=== PATIENT | female | born 1955 | race Caucasian/White ===

== ENCOUNTER → 2018-03-11 | Outpatient (CLI) | payer OTHER | LOC: FIMAGING 12:44 | DX: M47.897 Other spondylosis, lumbosacral region (principal); M51.37 Other intervertebral disc degeneration, lumbosacral region; M99.13 Subluxation complex (vertebral) of lumbar region ==

== ENCOUNTER 2018-07-02 18:38 | Inpatient (IN) | payer OTHER, MEDICAID ==
[2018-07-02] MEDS ORDERED: ALBUTEROL 3 ML DEYVIAL IH ONE (19:15)
[2018-07-02] MEDS ORDERED: methylPREDNISolone SOD SUCC 125 MG/2 ML VIAL IVP ONE ×2 (19:15→23:00)
[2018-07-02] MEDS ORDERED: IPRATROPIUM/ALBUTEROL 3 ML DEYVIAL IH ONE (19:15)
--- NOTE | 2018-07-02 19:19 | EDPHY ---
H & P Time Seen by Provider: 07/02/18 18:53 HPI/ROS: CHIEF COMPLAINT: "I stopped breathing twice" HISTORY OF PRESENT ILLNESS: Patient is at [facility] under the care of [facility] for stage IV emphysema. She is also getting scheduled narcotics 15 mg orally q4 hours of morphine per April from hospice, for chronic back pain. The patient tells me that she no longer wants to be on hospice because her 27- year-old daughter just got and now the patient tells me she is not ready to . The hospice person who I spoke to on the phone at 7:05 p.m., April, says that there are notes she reviewed that state that the patient had a disagreement with hospice providers over how much narcotics she was to get for her back pain. Patient tells me that twice, once last night and once the night before, she woke up unable to breathe. She says her breathing has been worsening over the past 2 days, and she feels more labored and more short of breath over the last 48 hr. She is still on her baseline 8 L nasal cannula of oxygen. She has a cough and thinks she might have a cold and some congestion. No hemoptysis or leg swelling and no chest pain. Symptoms severe. REVIEW OF SYSTEMS: Eye: no change in vision ENT: no sore throat Cardiac: no chest pain or syncope Pulmonary: HPI Abdomen: no vomiting, diarrhea, abdominal pain Musculoskeletal: HPI Skin: no rash Neuro: no headache Constitutional: no fever : no urinary symptoms or incontinence A comprehensive 10 point review of systems is otherwise negative aside from elements mentioned in the history of present illness. PAST MEDICAL HISTORY: Emphysema and chronic back pain Social history: [facility] resident until tonight General Appearance: Alert and conversant, cooperative. Eyes: No scleral icterus. ENT, Mouth: Normal mucous membranes. No angioedema. Respiratory: Bilateral expiratory wheezes, no focal lung sounds, tachypneic. On 8 liters NC. Cardiovascular: Regular rate and rhythm. Gastrointestinal: Abdomen is soft and non tender. Neurological: Alert, face symmetric, normal motor and sensory in extremities. Skin: Warm and dry, no rashes. Musculoskeletal: No calf tenderness. Psychiatric: Not agitated. Emergency Department course/MDM: Patient says she has withdrawn her relationship with hospice as of tonight. She says she does want full treatment for her COPD and is not ready to . Solu-Medrol 125, DuoNeb and albuterol neb, chest x-ray and EKG. 2019: Patient was started on oral 10 mg prednisone yesterday. She has markedly worsening symptomatic COPD with status recently changed from hospice to wanting full treatment. Planned admit for treatment of severe COPD. Likely she has viral URI or chest cold giving her worsening symptoms. I think it is not likely that she has pulmonary embolism or ACS or CHF or pneumonia. This is discussed with April from her hospice provider. Hospice recommended giving her 15 mg oral morphine every 4 hr, without any increase in dosing. Chest x-ray shows COPD and scarring, without pneumothorax or pneumonia. Smoking Status: Current every day smoker Constitutional: Initial Vital Signs Temperature (C) 36.6 C 07/02/18 18:41 Heart Rate 100 07/02/18 18:41 Respiratory Rate 18 07/02/18 18:41 Blood Pressure 148/73 H 07/02/18 18:41 O2 Sat (%) 96 07/02/18 18:41 O2 Delivery Mode Nasal Cannula O2 (L/minute) 8 Allergies/Adverse Reactions: Penicillins Allergy (Verified 07/02/18 18:41) Home Medications: Medication Instructions Recorded Unobtainable 07/02/18 Medical Decision Making - Diagnostics EKG Interpretation: 12-lead EKG interpreted by me; official reading is in computer system. My interpretation is sinus rhythm rate 96 no ischemic changes. Imaging Results: Imaging Impressions Chest X-Ray 07/02/18 19:15 Impression: 1. Bibasilar reticular opacities, worse on the left, likely representing scarring and atelectasis. Lungs are hyperinflated. 2. Irregularity of the posterolateral fourth rib on the right may represent an acute or subacute fracture. Recommend correlation with point tenderness. 3. Nodular density in the right lower lung favored to represent a nipple shadow. Imaging: I viewed and interpreted images myself Differential Diagnosis: Differential diagnosis considered for shortness of breath including but not limited to pulmonary infectious process, COPD, asthma, pulmonary embolus and congestive heart failure. Consult/Admit Bed Type: [facility] 2032 - Data Points Laboratory Results: Laboratory Results 07/02/18 19:22 07/02/18 19:22 07/02/18 07/02/18 19:22 19:22 WBC 10.19 10^3/uL H 10^3/uL (3.80-9.50) RBC 4.31 10^6/uL 10^6/uL (4.18-5.33) Hgb 13.0 g/dL g/dL (12.6-16.3) Hct 39.3 % % (38.0-47.0) MCV 91.2 fL fL (81.5-99.8) MCH 30.2 pg pg (27.9-34.1) MCHC 33.1 g/dL g/dL (32.4-36.7) RDW 13.0 % % (11.5-15.2) Plt Count 192 10^3/uL 10^3/uL (150-400) MPV 10.8 fL fL (8.7-11.7) Neut % (Auto) 76.0 % H % (39.3-74.2) Lymph % (Auto) 17.5 % % (15.0-45.0) [place] % (Auto) 5.5 % % (4.5-13.0) Eos % (Auto) 0.5 % L % (0.6-7.6) Baso % (Auto) 0.2 % L % (0.3-1.7) Nucleat RBC Rel Count 0.0 % % (0.0-0.2) Absolute Neuts (auto) 7.75 10^3/uL H 10^3/uL (1.70-6.50) Absolute Lymphs (auto) 1.78 10^3/uL 10^3/uL (1.00-3.00) Absolute Monos (auto) 0.56 10^3/uL 10^3/uL (0.30-0.80) Absolute Eos (auto) 0.05 10^3/uL 10^3/uL (0.03-0.40) Absolute Basos (auto) 0.02 10^3/uL 10^3/uL (0.02-0.10) Absolute Nucleated RBC 0.00 10^3/uL 10^3/uL (0-0.01) Immature Gran % 0.3 % % (0.0-1.1) Immature Gran # 0.03 10^3/uL 10^3/uL (0.00-0.10) Sodium 133 mEq/L L mEq/L (135-145) Potassium 3.9 mEq/L mEq/L (3.5-5.2) Chloride 91 mEq/L L mEq/L (97-110) Carbon Dioxide 33 mEq/l H mEq/l (22-31) Anion Gap 9 mEq/L mEq/L (6-14) BUN 7 mg/dL mg/dL (7-23) Creatinine 0.5 mg/dL L mg/dL (0.6-1.0) Estimated GFR > 60 Glucose 114 mg/dL H mg/dL (70-100) Calcium 9.7 mg/dL mg/dL (8.5-10.4) Medications Given: Discontinued Medications Albuterol (Proventil Neb) 3 ml IH EDNOW ONE Stop: 07/02/18 19:16 Last Admin: 07/02/18 19:24 Dose: 3 ml Albuterol/Ipratropium (Duoneb) 3 ml IH EDNOW ONE Stop: 07/02/18 19:16 Last Admin: 07/02/18 19:24 Dose: 3 ml Methylprednisolone Sodium Succinate (Solu-Medrol) 125 mg IVP EDNOW ONE Stop: 07/02/18 19:16 Last Admin: 07/02/18 19:24 Dose: 125 mg Morphine Sulfate (Morphine Ir) 15 mg PO EDNOW ONE Stop: 07/02/18 19:17 Last Admin: 07/02/18 19:44 Dose: 15 mg Departure - Departure Disposition: [place] Inpatient Acute Clinical Impression: Chronic obstructive pulmonary disease with acute exacerbation Condition: Fair Referrals: CRUZ KOHLER [Primary Care Provider] - As per Instructions
[2018-07-02 19:36] LABS: PLATELET COUNT 192 10^3/uL (150-400)
--- NOTE | 2018-07-02 20:16 | CPEKG ---
Test Reason : OPEN Blood Pressure : / mmHG Vent. Rate : 096 BPM Atrial Rate : 095 BPM P-R Int : 141 ms QRS Dur : 082 ms QT Int : 350 ms P-R-T Axes : 081 047 051 degrees QTc Int : 443 ms Sinus rhythm Confirmed by Miguel Angel Mcguire ([id number]) on 07/02/2018 8:15:48 PM Referred By: Confirmed By:Miguel Angel Mcguire
[2018-07-02] MEDS ORDERED: ONDANSETRON 4 MG/2 ML VIAL IVP PRN (21:09)
[2018-07-02] MEDS ORDERED: ONDANSETRON DISINTEGRATING 4 MG TAB PO PRN (21:09)
[2018-07-02] MEDS ORDERED: PROMETHAZINE HCL 25 MG/ML INJ IVP PRN (21:09)
--- NOTE | 2018-07-02 21:46 | PDGENHP ---
History and Physical - Chief Complaint shortness of breath - History of Present Illness 63 yo F with PMH that includes COPD with chronic hypoxic respiratory failure requiring 8L of oxygen at baseline as well as chronic back pain with continuous narcotic use and dependency presenting from [facility] with complaints of increased sob for the last few days. She notes that she had been on hospice at [facility] for the last several months for both her COPD and for 'pain control'. She recently found out that her daughter is however and that combined with how badly she felt made her decide to withdraw from hospice and come to the hospital. She states at this time she would also like to revoke her DNR and would be ok with being intubated if things progressed that way, her daughter is her MDPOA. She has not have any fevers or chills that she is aware of, she notes her back pain has been worse than usual and she does not feel it is being controlled adequately at [facility]. She has a cough that is non productive. She has not had any sick contacts that she is aware of. History Information - Allergies/Home Medication List Allergies/Adverse Reactions: Penicillins Allergy (Verified 07/02/18 18:41) Home Medications: Acetaminophen [Tylenol ES 500 mg (*)] 500 mg PO BID@,16 07/02/18 [Last Taken 07/02/18 16:00] Albuterol Sulfate [ALBUTEROL SULFATE 1.25 MG/3 ML] 1.25 mg IH BID@,18 [Last Taken 07/02/18 18:00] Benzonatate 100 mg PO TID 07/02/18 [Last Taken 07/02/18 20:00] Diazepam [Valium 5 MG (*)] 5 mg PO TID 07/02/18 [Last Taken Unknown] Docusate Sodium [Colace 100 MG (*)] 100 mg PO BID 07/02/18 [Last Taken 07/02/18 20:00] Ergocalciferol [Vitamin D2 (*)] 50,000 unit PO Q30D 07/02/18 [Last Taken ] Fluticasone/Salmeter 100/50Mcg [Advair 100/50 (*)] 1 puffs IH BID 07/02/18 [ Last Taken 07/02/18 20:00] Herbals/Supplements -Info Only 1 ea PO DAILY 07/02/18 [Last Taken 07/02/18] Hydrocortisone 1% [Hydrocortisone 1% cream (*)] 1 sj TP Q4H PRN 07/02/18 [Last Taken Unknown] Ipratropium/Albuterol [Duoneb (*)] 3 ml IH QID 07/02/18 [Last Taken 07/02/18 20: 00] Loratadine [Claritin] 10 mg PO DAILY PRN 07/02/18 [Last Taken Unknown] Mometasone Furoate [Asmanex Hfa] 2 puffs IH BID 07/02/18 [Last Taken 07/02/18 20 :00] Polyethylene Glycol 3350 [Miralax 17 gm (*)] 17 gm PO DAILY PRN 07/02/18 [Last Taken Unknown] Triamcinolone 0.1% [Triamcinolone 0.1% Cream (*)] 1 sj TP BID PRN 07/02/18 [ Last Taken 07/02/18 20:00] diphenhydrAMINE [Benadryl 25 MG (*)] 25 mg PO Q4H PRN 07/02/18 [Last Taken Unknown] fentaNYL [Duragesic 50 MCG Patch (*)] 50 mcg TD Q72H 07/02/18 [Last Taken 07:00] guaiFENesin [Mucinex 600 MG (*)] 600 mg PO BID 07/02/18 [Last Taken 07/02/18 20: 00] morphINE SR [MS Contin/Oramorph SR 30 mg (*)] 30 mg PO BID@,07/02/18 [Last Taken 07/02/18 19:00] morphINE [Roxanol 10 mg/0.5 ml oral soln (*)] 0.75 ml PO Q4H PRN 07/02/18 [Last Taken 07/02/18 15:00] predniSONE [Prednisone] 10 mg PO DAILY 07/02/18 [Last Taken 07/02/18] traZODone [traZODONE 50MG (*)] 25 mg PO HS 07/02/18 [Last Taken 07/02/18 20:00] I have personally reviewed and updated: family history, medical history, social history, surgical history - Past Medical History COPD Additional medical history: chronic hypoxic respiratory failure--8L at baseline. Chronic pain with continuous narcotic use and dependency. spondylolithesis with lumbar radiculopathy - Surgical History Reports: hysterectomy, spinal surgery Additional surgical history: c -section - Family History Positive for: non-pertinent (smoked up until several months ago) - Social History Smoking Status: Former smoker Alcohol Use: None Drug Use: None Additional social history: has been residing at [facility] x 8 months, on hospice for last few months Review of Systems Review of Systems: ROS: 10pt was reviewed & negative except for what was stated in HPI & below Physical Exam Physical Exam: Temp Pulse Resp BP Pulse Ox 36.7 C 98 16 131/87 H 97 07/02/18 21:32 07/02/18 21:32 07/02/18 21:32 07/02/18 21:32 07/02/18 21:32 O2 (L/minute) 8 Constitutional: appears nourished, chronically ill appearing Eyes: PERRL, anicteric sclera Ears, Nose, Mouth, Throat: moist mucous membranes, hearing normal Cardiovascular: regular rate and rhythym, no murmur, rub, or gallop, No edema Respiratory: no respiratory distress, reduced air movement, expiratory wheeze Gastrointestinal: normoactive bowel sounds, soft, non-tender abdomen Genitourinary: no bladder tenderness Skin: warm, normal color Musculoskeletal: full muscle strength Neurologic: AAOx3 Psychiatric: interacting appropriately, not anxious, not encephalopathic Lab Data & Imaging Review 07/02/18 19:22 07/02/18 19:22 WBC 10.19 10^3/uL (3.80-9.50) H 07/02/18 19:22 RBC 4.31 10^6/uL (4.18-5.33) 07/02/18 19:22 Hgb 13.0 g/dL (12.6-16.3) 07/02/18 19:22 Hct 39.3 % (38.0-47.0) 07/02/18 19:22 MCV 91.2 fL (81.5-99.8) 07/02/18 19:22 MCH 30.2 pg (27.9-34.1) 07/02/18 19:22 MCHC 33.1 g/dL (32.4-36.7) 07/02/18 19:22 RDW 13.0 % (11.5-15.2) 07/02/18 19: Plt Count 192 10^3/uL (150-400) 07/02/18 19: MPV 10.8 fL (8.7-11.7) 07/02/18 19: Neut % (Auto) 76.0 % (39.3-74.2) H 07/02/18: Lymph % (Auto) 17.5 % (15.0-45.0) 07/02/18: [place] % (Auto) 5.5 % (4.5-13.0) 07/02/18: Eos % (Auto) 0.5 % (0.6-7.6) L 07/02/18: Baso % (Auto) 0.2 % (0.3-1.7) L 07/02/18: Nucleat RBC Rel Count 0.0 % (0.0-0.2) 07/02/18: Absolute Neuts (auto) 7.75 10^3/uL (1.70-6.50) H 07/02/18 19: Absolute Lymphs (auto) 1.78 10^3/uL (1.00-3.00) 07/02/18: Absolute Monos (auto) 0.56 10^3/uL (0.30-0.80) 07/02/18: Absolute Eos (auto) 0.05 10^3/uL (0.03-0.40) 07/02/18: Absolute Basos (auto) 0.02 10^3/uL (0.02-0.10) 07/02/18: Absolute Nucleated RBC 0.00 10^3/uL (0-0.01) 07/02/18: Immature Gran % 0.3 % (0.0-1.1) 07/02/18: Immature Gran # 0.03 10^3/uL (0.00-0.10) 07/02/18 19:22 Sodium 133 mEq/L (135-145) L 07/02/18: Potassium 3.9 mEq/L (3.5-5.2) 01/16/19 19:22 Chloride 91 mEq/L (97-110) L 07/02/18 19:22 Carbon Dioxide 33 mEq/l (22-31) H 07/02/18 19:22 Anion Gap 9 mEq/L (6-14) 07/02/18 19:22 BUN 7 mg/dL (7-23) 07/02/18 19:22 Creatinine 0.5 mg/dL (0.6-1.0) L 07/02/18 19:22 Estimated GFR > 60 07/02/18 19:22 Glucose 114 mg/dL (70-100) H 07/02/18 19:22 Calcium 9.7 mg/dL (8.5-10.4) 07/02/18 19:22 Visualized and Interpreted Chest x-ray results: Yes Chest X-Ray results: other (bibasilar opacities--atelectasis likely, hyperinflation) Visualized and Interpreted EKG results: Yes EKG Interpretation: Positive for: normal sinsus rhythm Assessment & Plan Assessment: Chronic obstructive pulmonary disease with acute exacerbation (Acute) 63 yo F with COPD and chronic hypoxic respiratory failure as well as chronic pain and continuous opiate use and dependency admitted with copd exacerbation # copd exacerbation: presenting with sob and increased wob that improved s/p nebulizer treatments, patient had previously been on hospice and sounds as though due to being on hospice some treatments were being deferred at [facility], will continue scheduled duonebs and albuterol prn as well as prednisone and azithromycin. No clear e/o pna on CXR, consider repeat cxr if does not continue to improve as expected. # acute on chronic hypoxic respiratory failure: as above presented to ER with increased sob and wob on her usual o2 requirement, is now back to baseline # chronic pain with continuous opiate use and dependency: will resume her home regimen and monitor, pt/ot to be involved # lumbar radiculopathy: etiology for her chronic pain as above, pt/ot, uses a walker at baseline # hyponatremia: mild, will repeat in am # IP status, expect will require > 48 hours stay for eval/mgmt of above # goals of care: previously on hospice but withdrew from hospice and states she would like to be full code currently, unclear if she completely understands the implications of this as it was in part driven by her worsening sxs over the last couple of days--will need to address further, consider palliative consult # Patient new to my care. Old records reviewed and summarized as above. Care plan reviewed with ER doctor including plans for tx of copd exacerbation.
[2018-07-02] MEDS ORDERED: CETIRIZINE 10 MG TAB PO PRN (21:53)
[2018-07-02] MEDS ORDERED: HYDROCORTISONE 1% CREAM TP PRN (21:53)
[2018-07-02] MEDS ORDERED: POLYETHYLENE GLYCOL 3350 17 GM PKT PO PRN (21:53)
[2018-07-02] MEDS ORDERED: TRIAMCINOLONE 0.1% 15 GM CRTUBE TP PRN (21:53)
[2018-07-02] MEDS: ALBUTEROL 3 ML DEYVIAL IH PRN (22:38)
[2018-07-02] MEDS: BENZONATATE 100 MG CAP PO SCH (22:39)
[2018-07-02] MEDS: DIAZEPAM 5 MG TAB PO PRN (22:39)
[2018-07-02] MEDS: AZITHROMYCIN 250 MG TAB PO SCH (22:39)
[2018-07-02] MEDS: morphINE 10 MG/0.5 ML UDSYR PO PRN (22:39)
[2018-07-03] MEDS: ALBUTEROL 3 ML DEYVIAL IH PRN ×4 (01:35→13:47)
[2018-07-03] MEDS: morphINE 10 MG/0.5 ML UDSYR PO PRN ×5 (03:00→21:10)
[2018-07-03] MEDS: IPRATROPIUM/ALBUTEROL 3 ML DEYVIAL IH SCH ×4 (05:37→20:37)
[2018-07-03 06:20] LABS: PLATELET COUNT 164 10^3/uL (150-400)
[2018-07-03] MEDS: DIAZEPAM 5 MG TAB PO PRN ×3 (07:05→21:09)
[2018-07-03] MEDS: ACETAMINOPHEN 325 MG TAB PO PRN ×4 (07:05→19:50)
[2018-07-03] MEDS: morphINE SR 30 MG TAB PO SCH ×2 (07:05→18:08)
[2018-07-03] MEDS: DOCUSATE SODIUM 100 MG CAP PO SCH ×3 (09:07→21:16)
[2018-07-03] MEDS: ENOXAPARIN 40 MG/0.4 ML SYR SC SCH (09:07)
[2018-07-03] MEDS: guaiFENesin 600 MG TAB.ER PO SCH ×2 (09:07→21:09)
[2018-07-03] MEDS: predniSONE 20 MG TAB PO SCH (09:08)
[2018-07-03] MEDS: BENZONATATE 100 MG CAP PO SCH ×3 (09:09→21:09)
[2018-07-03] MEDS: FLUTICASONE/SALMETER 100/50MCG DISKUS IH SCH ×3 (09:28→20:37)
[2018-07-03] MEDS: diphenhydrAMINE 25 MG CAP PO PRN (11:13)
--- NOTE | 2018-07-03 11:32 | PDMN ---
Medical Necessity Medical necessity: [facility] M100 COPD, A-2 days: 63 yo w/ acute on chronic COPD exacerbation w/ SOB and increased WOB. BC pending, nebs started, antibx and steroids started. PT/OT ordered. IP status, expect will require > 48 hours stay for eval/mgmt of above. Meets [facility] IP criteria for severe underlying COPD w / new or worsened s/sx as described above. Hx COPD on chronic O2 8L baseline, on chronic pain meds for lumbar radiculopathy, was enrolled in hospice but recently withdrew.
--- NOTE | 2018-07-03 12:34 | ASMTCMCOM ---
CM Note CM Note Notes: Reviewed pt with Malcom at [facility] where pt resides. She was previously on hospice but has since revoked services d/t her dtr's . She is a full code now. DC needs uncertain but will return to when medically stable. Therapies pending DC Plan: [facility] Date Signed: 07/03/2018 12:33 PM Electronically Signed By:Simran Heath RN
[2018-07-03] MEDS: Mometasone Furoate [Asmanex Hfa] 2 PUFFS IH SCH ×2 (13:21→21:11)
--- NOTE | 2018-07-03 14:53 | HOSPPROG ---
Hospitalist Progress Note Assessment/Plan: Chronic obstructive pulmonary disease with acute exacerbation. First encounter, chart reviewed. 63 yo F with COPD and chronic hypoxic respiratory failure as well as chronic pain and continuous opiate use and dependency admitted with copd exacerbation Resides at . # copd exacerbation: -presenting with sob and increased wob -improved s/p nebulizer treatments -patient had previously been on hospice and sounds as though due to being on hospice some treatments were being deferred at [facility] - will continue scheduled duonebs and albuterol prn as well as prednisone and azithromycin - No clear e/o pna on CXR, consider repeat cxr if does not continue to improve as expected # acute on chronic hypoxic respiratory failure: -as above presented to ER with increased sob and wob on her usual o2 requirement -titrate down # chronic pain with continuous opiate use and dependency: - will resume her home regimen and monitor - pt/ot to be involved #Mentation -unclear of baseline -oriented, but unclear about understanding # lumbar radiculopathy: -etiology for her chronic pain as above -pt/ot, uses a walker at baseline # hyponatremia: -mild -will repeat in am # IP status, expect will require > 48 hours stay for eval/mgmt of above # goals of care: -previously on hospice but withdrew from hospice and states she would like to be full code currently -unclear if she completely understands the implications of this as it was in part driven by her worsening sxs over the last couple of days -will need to address further, palliative consult Subjective: Feels funny all over. No specific complaints. Objective: Vital Signs Temp Pulse Resp BP Pulse Ox 36.4 C 87 12 127/74 H 100 07/03/18 11:02 07/03/18 11:02 07/03/18 11:02 07/03/18 11:02 07/03/18 11:02 Microbiology 07/03/18 02:00 Respiratory Panel (PCR) - Final Nasal, Sinus - Anaerobic Tube/Swab No Organism Detected By Pcr Laboratory Results 07/03/18 05:36 07/03/18 05:36 07/02/18 07/03/18 07/04/18 05:59 05:59 05:59 Intake Total 200 Balance 200 - Physical Exam Constitutional: appears nourished, chronically ill appearing, uncomfortable Eyes: PERRL, anicteric sclera, EOMI Ears, Nose, Mouth, Throat: moist mucous membranes, hearing normal, ears appear normal Cardiovascular: regular rate and rhythym, No JVD, No edema Respiratory: no respiratory distress, no rales or rhonchi, reduced air movement Gastrointestinal: normoactive bowel sounds, No tenderness, No ascites Skin: warm, normal color, No mottled Musculoskeletal: normal joint ROM, no joint effusions, generalized weakness Psychiatric: anxious, poor insight, poor judgement, poor memory ICD10 Worksheet Patient Problems: Problems Problem Status Onset Chronic obstructive pulmonary disease with acute exacerbation Acute
[2018-07-03] MEDS: traZODone 50 MG TAB PO SCH (21:09)
[2018-07-03] MEDS: AZITHROMYCIN 250 MG TAB PO SCH (21:09)
[2018-07-04] MEDS: morphINE 10 MG/0.5 ML UDSYR PO PRN ×5 (01:57→20:24)
[2018-07-04] MEDS: ALBUTEROL 3 ML DEYVIAL IH PRN ×2 (02:01→13:21)
[2018-07-04] MEDS: TIOTROPIUM INHALER 18 MCG/DOSE 5 DOSE/MDI IH SCH ×2 (03:21→09:07)
[2018-07-04] MEDS: DIAZEPAM 5 MG TAB PO PRN ×4 (03:21→23:09)
[2018-07-04] MEDS: diphenhydrAMINE 25 MG CAP PO PRN (03:21)
[2018-07-04] MEDS: IPRATROPIUM/ALBUTEROL 3 ML DEYVIAL IH SCH ×4 (05:59→20:43)
[2018-07-04] MEDS: ACETAMINOPHEN 325 MG TAB PO PRN ×4 (06:21→23:09)
[2018-07-04] MEDS: morphINE SR 30 MG TAB PO SCH ×2 (06:21→18:24)
[2018-07-04] MEDS: predniSONE 20 MG TAB PO SCH (09:03)
[2018-07-04] MEDS: BENZONATATE 100 MG CAP PO SCH ×3 (09:04→21:31)
[2018-07-04] MEDS: guaiFENesin 600 MG TAB.ER PO SCH ×2 (09:04→21:30)
[2018-07-04] MEDS: ENOXAPARIN 40 MG/0.4 ML SYR SC SCH (09:05)
[2018-07-04] MEDS: Mometasone Furoate [Asmanex Hfa] 2 PUFFS IH SCH ×2 (09:23→21:32)
[2018-07-04] MEDS: DOCUSATE SODIUM 100 MG CAP PO SCH ×2 (09:23→21:31)
--- NOTE | 2018-07-04 16:12 | HOSPPROG ---
Hospitalist Progress Note Assessment/Plan: # acute on chronic resp failure # COPD with acute exacerbation - very advanced COPD - cont steroids (change to IV); cont azith x 3 days - cont nebs, spiriva - cont mucinex - 8L O2 baseline, slightly worse hypercarbia # chronic pain on continuous narcotics - will increase fentanyl patch today 50->75 - cont ms contin 30 bid, roxanol # hypoNa - suspect SIADH; check urine studies, serum osms - fluid restrict 1.5L # goals of care - long discussion today with [facility]; she does not want to return to hospice at this time; i told her that her 57# weight loss is very concerning; i also told her CPR or intubation very unlikely to provide quality of life - family will discuss her code status further Subjective: SOB better; I had a long conversation with April ([facility]), patient, dtr, dtr's partner Objective: Vital Signs Temp Pulse Resp BP Pulse Ox 36.9 C 100 16 95/62 L 97 07/04/18 14:53 07/04/18 14:53 07/04/18 14:53 07/04/18 14:53 07/04/18 14:53 Laboratory Results 07/03/18 05:36 07/04/18 03:21 07/03/18 07/04/18 07/05/18 05:59 05:59 05:59 Intake Total 200 700 Output Total 1450 Balance 200 700 -1450 - Time Spent With Patient Time Spent with Patient: greater than 35 minutes Time Spent with Patient: Greater than 35 minutes spent on this patients care, greater than 50% of time spent counseling, educating, and coordinating care regarding the above mentioned plan. - Physical Exam Constitutional: other (speaking in short sentences; some increased WOB) ICD10 Worksheet Patient Problems: Problems Problem Status Onset Chronic obstructive pulmonary disease with acute exacerbation Acute
[2018-07-04] MEDS: fentaNYL 75 MCG PATCH TD SCH (16:46)
--- NOTE | 2018-07-04 16:56 | ASMTCMCOM ---
CM Note CM Note Notes: CM informed that pt is very unhappy with [facility]. She has been living there for 8 months and until recently has been on hospice. CM notified [facility] rep Malcom, who went and spoke with pt about her concerns and her right to request another facility. Pt states Malcom only offered other [facility] facilities but he states he also offered to help transfer her to any facility that she wants, that take Medicaid. CM went to speak with pt but she was not feeling well and asked CM to follow up the morning. DC Plan: [facility] Date Signed: 07/04/2018 04:56 PM Electronically Signed By:Simran Heath RN
[2018-07-04] MEDS: methylPREDNISolone SOD SUCC 40 MG/ML VIAL IVP SCH (21:29)
[2018-07-04] MEDS: AZITHROMYCIN 250 MG TAB PO SCH (21:30)
[2018-07-04] MEDS: traZODone 50 MG TAB PO SCH (21:30)
[2018-07-05] MEDS: morphINE 10 MG/0.5 ML UDSYR PO PRN ×4 (01:53→16:52)
[2018-07-05] MEDS: ALBUTEROL 3 ML DEYVIAL IH PRN ×2 (02:03→13:37)
[2018-07-05] MEDS: diphenhydrAMINE 25 MG CAP PO PRN (03:11)
[2018-07-05] MEDS: DIAZEPAM 5 MG TAB PO PRN ×3 (05:11→18:47)
[2018-07-05] MEDS: ACETAMINOPHEN 325 MG TAB PO PRN ×4 (05:12→21:03)
[2018-07-05] MEDS: IPRATROPIUM/ALBUTEROL 3 ML DEYVIAL IH SCH ×4 (05:37→22:07)
[2018-07-05] MEDS: methylPREDNISolone SOD SUCC 40 MG/ML VIAL IVP SCH ×3 (06:23→21:02)
[2018-07-05] MEDS: morphINE SR 30 MG TAB PO SCH ×2 (06:23→18:47)
[2018-07-05] MEDS ORDERED: fentaNYL 50 MCG PATCH TD SCH (07:00)
[2018-07-05] MEDS: guaiFENesin 600 MG TAB.ER PO SCH ×2 (08:25→21:04)
[2018-07-05] MEDS: ENOXAPARIN 40 MG/0.4 ML SYR SC SCH (08:25)
[2018-07-05] MEDS: BENZONATATE 100 MG CAP PO SCH ×3 (08:25→21:03)
[2018-07-05] MEDS: DOCUSATE SODIUM 100 MG CAP PO SCH ×2 (08:25→21:04)
[2018-07-05] MEDS: Mometasone Furoate [Asmanex Hfa] 2 PUFFS IH SCH ×2 (09:11→21:05)
[2018-07-05] MEDS: TIOTROPIUM INHALER 18 MCG/DOSE 5 DOSE/MDI IH SCH (10:05)
--- NOTE | 2018-07-05 15:38 | HOSPPROG ---
Hospitalist Progress Note Assessment/Plan: # acute on chronic resp failure # COPD with acute exacerbation - very advanced COPD - cont steroids (change to IV); cont azith x 3 days - cont nebs, spiriva - cont mucinex - 8L O2 baseline, now slightly below that # chronic pain on continuous narcotics - long discussion regarding safety of multiple narcotics -fentanyl patch increased 50->75 - cont ms contin 30 bid, roxanol - stop morphine IV today - we discussed this directly # hypoNa - urine studies with low Omega - will try 1L NS # goals of care - does not want hospice; wants to continue FCFT; will get outpatient pall care Subjective: breathing feels better today; complains of back pain Objective: Vital Signs Temp Pulse Resp BP Pulse Ox 36.9 C 88 18 109/63 99 07/05/18 13:40 07/05/18 13:40 07/05/18 13:40 07/05/18 13:40 07/05/18 13:40 Laboratory Results 07/03/18 05:36 07/05/18 05:34 07/04/18 07/05/18 07/06/18 05:59 05:59 05:59 Intake Total 700 2400 520 Output Total 1450 2000 Balance 700 950 -1480 high risk receiving iv narcotics - Physical Exam Constitutional: other (speaking in almost full sentences) Cardiovascular: regular rate and rhythym, no murmur, rub, or gallop Respiratory: expiratory wheeze, respiratory distress (mild), other (very soft BS throughout - not moving much air), No inspiratory crackles Gastrointestinal: normoactive bowel sounds, soft, non-tender abdomen, no palpable masses ICD10 Worksheet Patient Problems: Problems Problem Status Onset Chronic obstructive pulmonary disease with acute exacerbation Acute
[2018-07-05] MEDS ORDERED: NS 1,000 ML IV SCH (15:45)
--- NOTE | 2018-07-05 16:41 | ASMTCMCOM ---
CM Note CM Note Notes: Met with pt and dtr re; dc poc. CM expressed understanding with their unhappiness with [facility], [facility] and a senior blue book highlighting other facilities that take Medicaid. Encouraged them to do research on SNFs that they would want refferals to and engage with Malcom at . Family appreciative of help. DC Plan: [facility] Date Signed: 07/05/2018 04:40 PM Electronically Signed By:Simran Heath RN
[2018-07-05] MEDS: AZITHROMYCIN 250 MG TAB PO SCH (21:03)
[2018-07-05] MEDS: traZODone 50 MG TAB PO SCH (21:03)
[2018-07-06] MEDS: ALBUTEROL 3 ML DEYVIAL IH PRN (01:05)
[2018-07-06] MEDS: DIAZEPAM 5 MG TAB PO PRN ×4 (01:08→20:05)
[2018-07-06] MEDS: diphenhydrAMINE 25 MG CAP PO PRN ×2 (01:08→20:05)
[2018-07-06] MEDS: morphINE 10 MG/0.5 ML UDSYR PO PRN ×5 (01:09→20:03)
[2018-07-06] MEDS: IPRATROPIUM/ALBUTEROL 3 ML DEYVIAL IH SCH ×4 (05:13→21:22)
[2018-07-06] MEDS: morphINE SR 30 MG TAB PO SCH ×2 (06:08→18:17)
[2018-07-06] MEDS: ACETAMINOPHEN 325 MG TAB PO PRN ×2 (07:27→12:33)
[2018-07-06] MEDS: DOCUSATE SODIUM 100 MG CAP PO SCH ×2 (09:05→20:05)
[2018-07-06] MEDS: guaiFENesin 600 MG TAB.ER PO SCH ×2 (09:05→20:05)
[2018-07-06] MEDS: methylPREDNISolone SOD SUCC 40 MG/ML VIAL IVP SCH ×2 (09:05→20:06)
[2018-07-06] MEDS: ENOXAPARIN 40 MG/0.4 ML SYR SC SCH (09:05)
[2018-07-06] MEDS: BENZONATATE 100 MG CAP PO SCH ×3 (09:05→20:59)
[2018-07-06] MEDS: Mometasone Furoate [Asmanex Hfa] 2 PUFFS IH SCH ×2 (09:11→20:08)
[2018-07-06] MEDS: TIOTROPIUM INHALER 18 MCG/DOSE 5 DOSE/MDI IH SCH (09:28)
[2018-07-06] MEDS ORDERED: NS 1,000 ML IV SCH (09:45)
--- NOTE | 2018-07-06 09:53 | HOSPPROG ---
Hospitalist Progress Note Assessment/Plan: # acute on chronic resp failure - improving with treatment # COPD with acute exacerbation - very advanced COPD - cont steroids (change to IV); s/p azith 500mg x 3 days - cont nebs, spiriva - cont mucinex - reported recent 8L O2 baseline, now much better # chronic pain on continuous narcotics - this was an issue last night per RN - I reiterated that we will not restart morphine IV today - fentanyl patch has been increased 50->75 on this admit - cont ms contin 30 bid, roxanol # hypoNa hypovolemic - better with IVF; 500cc NS today # goals of care - was on hospice, rescinded this when she came to the hospital ( notably her dtr recently got ); i met with her and pall care - she does not want to be on hospice and is now FCFT; she will have outpatient pall care on discharge; she does not want to return to [facility] but we have discussed that this is likely the only option # dispo - BM tomorrow or the next day; pulm exam still with diffuse wheezes Subjective: feels much better but only about 50% of her baseline; still coughing but not producing much sputum; she complains of ongoing back pain worse when she coughs; she still has reservations about [facility] Objective: Vital Signs Temp Pulse Resp BP Pulse Ox 36.4 C 91 16 98/58 L 92 07/06/18 08:00 07/06/18 09:31 07/06/18 09:31 07/06/18 08:00 07/06/18 09:31 Laboratory Results 07/03/18 05:36 07/06/18 04:51 07/05/18 07/06/18 07/07/18 05:59 05:59 05:59 Intake Total 2400 970 500 Output Total 1450 3000 300 Balance 950 -2029 200 - Physical Exam Constitutional: other (comfortable) Cardiovascular: regular rate and rhythym, no murmur, rub, or gallop Respiratory: expiratory wheeze (diffuse with some rhonchi), respiratory distress (mild), No dullness to percussion Gastrointestinal: normoactive bowel sounds, soft, non-tender abdomen, no palpable masses ICD10 Worksheet Patient Problems: Problems Problem Status Onset Chronic obstructive pulmonary disease with acute exacerbation Acute
[2018-07-06] MEDS: traZODone 50 MG TAB PO SCH (20:05)
[2018-07-07] MEDS: morphINE 10 MG/0.5 ML UDSYR PO PRN ×5 (00:06→19:59)
[2018-07-07] MEDS: DIAZEPAM 5 MG TAB PO PRN ×4 (02:56→21:21)
[2018-07-07] MEDS: ACETAMINOPHEN 325 MG TAB PO PRN ×3 (02:56→21:26)
[2018-07-07] MEDS: IPRATROPIUM/ALBUTEROL 3 ML DEYVIAL IH SCH ×4 (05:06→20:53)
[2018-07-07] MEDS: morphINE SR 30 MG TAB PO SCH ×2 (06:07→18:15)
[2018-07-07] MEDS: BENZONATATE 100 MG CAP PO SCH ×3 (08:54→21:21)
[2018-07-07] MEDS: guaiFENesin 600 MG TAB.ER PO SCH ×2 (08:54→21:21)
[2018-07-07] MEDS: predniSONE 20 MG TAB PO SCH (08:54)
[2018-07-07] MEDS: DOCUSATE SODIUM 100 MG CAP PO SCH (08:54)
[2018-07-07] MEDS: ENOXAPARIN 40 MG/0.4 ML SYR SC SCH (08:54)
--- NOTE | 2018-07-07 09:09 | HOSPPROG ---
Hospitalist Progress Note Assessment/Plan: 63 yo F with COPD and chronic hypoxic respiratory failure as well as chronic pain and continuous opiate use and dependency admitted with copd exacerbation # acute on chronic resp failure - improving with treatment # COPD with acute exacerbation - very advanced COPD - now on oral steroids (07/07) s/p azith 500mg x 3 days & IV steroids - cont nebs, Spiriva - cont Mucinex - reported recent 8L O2 baseline, now much better- she is on 3 liters # chronic pain on continuous narcotics - this was an issue last night per RN - prior physician explained to Lillian no further IV narcotics - fentanyl patch has been increased 50->75 on this admit - cont ms Contin 30 bid, Roxanol (she was on this due to being on hospice- pharmacy spoke w her, she is now requesting MS IR 15 mg q 4 hours) - when asked where her pain is, she was vague # hypoNa hypovolemic - better with IVF # goals of care - was on hospice, rescinded this when she came to the hospital ( notably her dtr recently got ); i met with her and pall care - she does not want to be on hospice and is now FCFT; she will have outpatient pall care on discharge; she does not want to return to [facility] but we have discussed that this is likely the only option. She is requesting to be restarted on Morphine IR q 4 hours, need to further discuss w her, she is on two long acting medications including Fentanyl Patch and MS Contin. # dispo -Was planning to dc today, but she is feeling poorly. Hopefully, can return to [facility] tomorrow morning. Subjective: Lillian said she is feeling poorly today. Said she is wheezing to much to be discharged. Objective: Vital Signs Temp Pulse Resp BP Pulse Ox 36.5 C 78 16 104/61 98 07/07/18 07:48 07/07/18 07:48 07/07/18 07:48 07/07/18 07:48 07/07/18 07:48 Laboratory Results 07/03/18 05:36 07/06/18 04:51 07/06/18 07/07/18 07/08/18 05:59 05:59 05:59 Intake Total 970 2000 Output Total 3000 1800 1000 Balance -2030 200 -1000 - Physical Exam Constitutional: appears nourished, not in pain, chronically ill appearing Eyes: PERRL Ears, Nose, Mouth, Throat: hearing normal Cardiovascular: regular rate and rhythym Respiratory: no respiratory distress, expiratory wheeze (scattered) Skin: warm Musculoskeletal: generalized weakness Neurologic: AAOx3 Psychiatric: interacting appropriately, anxious, poor insight ICD10 Worksheet Patient Problems: Problems Problem Status Onset Chronic obstructive pulmonary disease with acute exacerbation Acute
[2018-07-07] MEDS: Mometasone Furoate [Asmanex Hfa] 2 PUFFS IH SCH ×2 (09:39→20:54)
[2018-07-07] MEDS: TIOTROPIUM INHALER 18 MCG/DOSE 5 DOSE/MDI IH SCH (10:21)
[2018-07-07] MEDS: fentaNYL 75 MCG PATCH TD SCH (15:15)
[2018-07-07] MEDS: traZODone 50 MG TAB PO SCH (21:21)
[2018-07-07] MEDS: diphenhydrAMINE 25 MG CAP PO PRN (21:26)
[2018-07-08] MEDS: DOCUSATE SODIUM 100 MG CAP PO SCH ×3 (00:34→09:43)
[2018-07-08] MEDS: morphINE 10 MG/0.5 ML UDSYR PO PRN ×3 (01:06→10:20)
[2018-07-08] MEDS: diphenhydrAMINE 25 MG CAP PO PRN (02:56)
[2018-07-08] MEDS: DIAZEPAM 5 MG TAB PO PRN ×2 (04:05→10:19)
[2018-07-08] MEDS: IPRATROPIUM/ALBUTEROL 3 ML DEYVIAL IH SCH ×2 (05:49→10:32)
[2018-07-08] MEDS: morphINE SR 30 MG TAB PO SCH (05:59)
[2018-07-08 07:19] VITALS: BP 91/55
--- NOTE | 2018-07-08 08:53 | HOSPPROG ---
Hospitalist Progress Note Assessment/Plan: 63 yo F with COPD and chronic hypoxic respiratory failure as well as chronic pain and continuous opiate use and dependency admitted with copd exacerbation # acute on chronic resp failure - improving with treatment # COPD with acute exacerbation - very advanced COPD - now on oral steroids (07/07) s/p azith 500mg x 3 days & IV steroids - cont nebs, Spiriva - cont Mucinex - reported recent 8L O2 baseline, now much better- she is on 2-3 liters # chronic pain on continuous narcotics - this was an issue last night per RN - prior physician explained to Lillian no further IV narcotics - will resume her home medications, but encouraged her to talk w her doctor about a better plan -she is on two long acting - she has chronic back pain # hypoNa hypovolemic - better with IVF # goals of care - was on hospice, rescinded this when she came to the hospital ( notably her dtr recently got ); She does not want to return to [facility]. She and her daughter will look at other options # dispo -[facility] Subjective: Lillian says she has ongoing wheezing this morning. Objective: Vital Signs Temp Pulse Resp BP Pulse Ox 36.3 C 74 16 91/55 L 95 07/08/18 07:17 07/08/18 07:17 07/08/18 07:17 07/08/18 07:17 07/08/18 07:17 Microbiology 07/02/18 23:05 Blood Culture - Final Blood 07/02/18 23:05 Blood Culture - Final Blood Laboratory Results 07/03/18 05:36 07/06/18 04:51 07/07/18 07/08/18 07/09/18 05:59 05:59 05:59 Intake Total 1999 1040 Output Total 1800 2200 Balance 200 -1160 - Physical Exam Constitutional: appears nourished, chronically ill appearing Eyes: PERRL Ears, Nose, Mouth, Throat: hearing normal Cardiovascular: regular rate and rhythym Respiratory: no respiratory distress, reduced air movement, expiratory wheeze ( few scattered, but less than yesterday) Skin: warm Musculoskeletal: generalized weakness Neurologic: AAOx3 Psychiatric: interacting appropriately ICD10 Worksheet Patient Problems: Problems Problem Status Onset Chronic obstructive pulmonary disease with acute exacerbation Acute
[2018-07-08] MEDS: TIOTROPIUM INHALER 18 MCG/DOSE 5 DOSE/MDI IH SCH (09:12)
[2018-07-08] MEDS: predniSONE 20 MG TAB PO SCH (09:34)
[2018-07-08] MEDS: guaiFENesin 600 MG TAB.ER PO SCH (09:35)
[2018-07-08] MEDS: ENOXAPARIN 40 MG/0.4 ML SYR SC SCH (09:35)
[2018-07-08] MEDS: BENZONATATE 100 MG CAP PO SCH (09:35)
[2018-07-08] MEDS: Mometasone Furoate [Asmanex Hfa] 2 PUFFS IH SCH (09:37)
--- NOTE | 2018-07-08 09:55 | PDIAF ---
- Diagnosis Diagnosis: acute respiratory failure, chronic back pain Code Status: Full Code - Medication Management Discharge Medications: electronically signed and located in the Home Medication List. - Orders Services needed: Physical Therapy, Occupational Therapy Oxygen: 3 liters at rest, 5 liters w activity Diet Recommendation: no restrictions on diet, fluid restriction (use comment for amount) (1500 ml) Diet Texture: Regular Texture Diet Additional Instructions: increase activity as tolerated resume home dosing of prednisone of 10 mg daily after done with the higher dosing Palliative care consult at - Follow Up Care Current Providers and Referrals: CRUZ KOHLER [Primary Care Provider] - As per Instructions
--- NOTE | 2018-07-08 10:40 | ASMTLACE ---
LACE Length of stay for Answers: 4-6 days current admission Acuity / Level of Answers: Yes Care: Did the patient have an inpatient admission? Comorbidities - select Answers: Chronic pulmonary disease all that apply Opioid dependence / Chronic pain # of Emergency department Answers: 1-2 visits in the last 6 months Score: 14 Date Signed: 07/08/2018 10:40 AM Electronically Signed By:JIM Sherwood
--- NOTE | 2018-07-08 10:56 | ASDISCHSUM ---
Discharge Information Plan Status:SNF Medically Cleared to Leave: Discharge Date: D/C Disposition: ADT D/C Disposition: Projected Discharge Date:07/04/2018 11:00 AM Transportation at D/C: Discharge Delay Reason: Follow-Up Date:07/04/2018 11:00 AM Discharge Slot: Final Diagnosis: Placement Information Referral Type:*Longterm/SNF Referral ID:[id number] Provider Name:[facility] Address 1:[address] [facility] Address 2: Fax Number: [facility]:[place] Selection Factors: State:[place] Referral Type:Palliative Care Referral ID:[id number] Provider Name:[facility] Address 1:[address] Phone Number: Address 2: Fax Number: [facility]:[place] Selection Factors: State:[place] Patient Contact Information Contact Name:QUITAYUNGNICOLA Relationship:Daughter Address: Work Phone: City: [facility] Phone: [facility] Code: Email: Financial Information Financial Class:Medicare Primary Plan Desc:MEDICARE INPATIENT Primary Plan Number:[id number] Secondary Plan Desc:[place] Secondary Plan Number:[id number] Assessment Information LACE LACE Length of stay for Answers: 4-6 days current admission Acuity / Level of Answers: Yes Care: Did the patient have an inpatient admission? Comorbidities - select Answers: Chronic pulmonary disease all that apply Opioid dependence / Chronic pain # of Emergency department Answers: 1-2 visits in the last 6 months Score: 14 Date Signed: 07/08/2018 10:40 AM Electronically Signed By:JIM Sherwood [facility] CM Progress Note CM Note CM Note Notes: Reviewed pt with Malcom at [facility] where pt resides. She was previously on hospice but has since revoked services d/t her dtr's . She is a full code now. DC needs uncertain but will return to when medically stable. Therapies pending DC Plan: SNF [facility] Date Signed: 07/03/2018 12:33 PM Electronically Signed By:Simran Heath RN [facility] CM Progress Note CM Note CM Note Notes: CM informed that pt is very unhappy with [facility]. She has been living there for 8 months and until recently has been on hospice. CM notified BM rep Malcom, who went and spoke with pt about her concerns and her right to request another facility. Pt states Malcom only offered other [facility] facilities but he states he also offered to help transfer her to any facility that she wants, that take Medicaid. CM went to speak with pt but she was not feeling well and asked CM to follow up the morning. DC Plan: [facility] Date Signed: 07/04/2018 04:56 PM Electronically Signed By:Simran Heath RN [facility] ELISSA Progress Note CM Note CM Note Notes: Met with pt and dtr re; dc poc. CM expressed understanding with their unhappiness with , I gave them resources to call the [facility] and a [employer] book highlighting other facilities that take Medicaid. Encouraged them to do research on SNFs that they would want refferals to and engage with Malcom at . Family appreciative of help. DC Plan: [facility] Date Signed: 07/05/2018 04:40 PM Electronically Signed By:Simran Heath RN Case Management Discharge Plan Note Case Management Discharge Discharge Order Complete? Answers: Yes Patient to Obtain Answers: Other Notes: [facility] SNF Medications Transportation Arranged Answers: Other Notes: [place] w/c transport EMTALA Complete Answers: No Case Management Transport Answers: No Form Complete Faxed Final Orders Answers: Yes Agency/Facility Transfer Answers: Yes Report Printed & Faxed to Receiving Agency Family Notified Answers: No Discharge Comments Notes: Pts case discussed w/ Laila Wing NP. Pt is being d/c'd today back to [facility]. Malcom from [facility] helped arrange transport. DC orders sent. JO ANN Rizzo will call to give report. Pt has been trying to notify daughter to notify her of d/c. CM available for changes. Plan: [facility] Intervention Information Intervention Type:*IM-Signed Date of Service:07/08/2018 10:52 AM Patient Type:Inpatient Staff Member:Josselin Harrison Hours: Discipline: Severity: Comment:
--- NOTE | 2018-07-08 11:00 | ASMTCMCOM ---
CM Note CM Note Notes: CM notified Ese at [facility] of the d/c and sent them d/c paperwork. Ese reports that she left a msg for pts daughter but has not heard back for a consult. Date Signed: 07/08/2018 10:59 AM Electronically Signed By:JIM Sherwood
--- NOTE | 2018-07-08 13:17 | GDS ---
DISCHARGE DIAGNOSES: 1. Acute on chronic respiratory failure. 2. Chronic obstructive pulmonary disease with acute exacerbation. 3. Chronic pain, on continuous narcotics. 4. Hyponatremia. HISTORY: Briefly, the patient is a 63-year-old woman who resides at [facility]. She has a history that includes COPD with chronic hypoxemic respiratory failure, requiring 8 L of oxygen at baseline, as well as chronic back pain with continuous narcotic use and dependency. She presented from [facility] with complaints of increased shortness of breath for days. She had been on hospice at [facility] for the last several months for her COPD and pain control, but had found out that her daughter is . She decided to withdraw from hospice and come to the hospital. She also revoked her DNR. Throughout her stay , she was treated with IV steroids with significant improvement. She will be on 2 L of oxygen at discharge. The other concern during her stay was her narcotic use. We had a long discussion that since she is not on hospice, maybe this could be re-evaluated, and some of her medications could be re-adjusted. HOSPITAL COURSE: 1. Acute on chronic respiratory failure, markedly improved. 2. COPD, with acute exacerbation. She has very advanced COPD. She was treated with IV steroids and received 3 days of azithromycin. Have continued her on nebs and Spiriva and Mucinex. She is on 2-3 L. She requires 5 L with ambulation, but this is better than her baseline. 3. Chronic pain, on continuous narcotics. I resumed her home medications. I told her of my concern of her being on long-acting fentanyl and long-acting MS Contin with Roxanol for breakthrough pain. She would like these medications to remain the same. 4. Hyponatremia, much improved. DISCHARGE CONDITION: Stable. Blood pressure is 106/62, heart rate of 83, respiratory rate of 18. O2 sats on 2 L are 94%. Temperature is 36.3 Celsius. DISCHARGE MEDICATIONS: Please see the EMR. DISCHARGE INSTRUCTIONS: 1. Encouraged her if she is not going to be on hospice, to try to increase her activity daily with increased walks. 2. If she develops fever, chills, chest pain, or shortness of breath, return to the ER. 3. Greater than 30 minutes discharging and coordinating the patient's care. /[id number]/MODL MTDD
== END 2018-07-08 12:12 | DRG 190 ==
LOC: EDUNIT# → F3E 21:16
PROVIDERS: ADMIT Internal Medicine; ATTEND Internal Medicine
DX: J44.1 Chronic obstructive pulmonary disease with (acute) exacerbation (principal); J96.20 Acute and chronic respiratory failure, unspecified whether with hypoxia or hypercapnia; E87.1 Hypo-osmolality and hyponatremia; F11.20 Opioid dependence, uncomplicated; G89.29 Other chronic pain; M54.16 Radiculopathy, lumbar region
CPT/HCPCS: 96374; 97116-GP; 97162-GP; 97165-GO; 97535-GO; J1650; J2270; J2920; J2930; J7512; J7613

== ENCOUNTER 2018-07-23 04:13 | Inpatient (IN) | payer OTHER, MEDICAID ==
[2018-07-23 04:30] LABS: PLATELET COUNT 159 10^3/uL (150-400)
--- NOTE | 2018-07-23 04:58 | EDPHY ---
H & P Stated Complaint: SOB since 0200 Time Seen by Provider: 07/23/18 04:18 HPI/ROS: Chief Complaint: Shortness of breath HPI: 63-year-old woman with a history of COPD woke at 2:00 a.m. This morning with severe shortness of breath. She had no relief with her home nebulizer. On EMS arrival the patient was tachypneic and hypoxemic with diffuse expiratory wheezing. They have given her 2 dual nebs and additional albuterol neb. They have also given her 125 mg of Solu-Medrol IV. She does state that her roommate has been sick but she has not been sick. No cough. No fevers or chills. No chest pain. ROS: 10 systems were reviewed and were negative except those elements noted in the HPI. PMH: COPD Social History: Positive history of smoking, no alcohol, no recreational drug use Family History: non-contributory Physical Exam: Gen: Awake, Alert, severe distress, less than 1 word dyspnea HEENT: Nose: no rhinorrhea Eyes: PERRLA, EOMI Mouth: Moist mucosa Neck: Supple, no JVD Chest: nontender, very diminished lung sounds, not moving much air Heart: S1, S2 normal, no murmur Abd: Soft, non-tender, no guarding Back: no CVA tenderness, no midline tenderness Ext: no edema, non-tender Skin: no rash Neuro: CN II-XII intact, Sensation grossly intact, Strength 5/5 in bilateral upper and lower extremities - Medical/Surgical History Hx Asthma: No Hx Chronic Respiratory Disease: Yes Hx Diabetes: No Hx Cardiac Disease: No Hx Renal Disease: No Hx Cirrhosis: No Hx Alcoholism: No Hx HIV/AIDS: No Hx Splenectomy or Spleen Trauma: No Other PMH: end stage emphysema, COPD, chronic back pain, anxiety, generalized muscle weakness, cognitive communication deficit. - Social History Smoking Status: Former smoker Constitutional: Initial Vital Signs Temperature (C) 36.6 C 07/23/18 04:15 Heart Rate 136 H 07/23/18 04:15 Respiratory Rate 26 H 07/23/18 04:15 Blood Pressure 169/120 H 07/23/18 04:15 O2 Sat (%) 95 07/23/18 04:15 O2 Delivery Mode Bi-Pap O2 (L/minute) 10 Allergies/Adverse Reactions: Penicillins Allergy (Verified 07/23/18 04:21) Home Medications: Medication Instructions Recorded Acetaminophen [Tylenol ES 500 mg 500 mg PO BID@08,16 07/02/18 (*)] Albuterol Sulfate [ALBUTEROL 1.25 mg IH BID@04,18 07/02/18 SULFATE 1.25 MG/3 ML] Benzonatate 100 mg PO TID 07/02/18 Diazepam [Valium 5 MG (*)] 5 mg PO TID 07/02/18 Docusate Sodium [Colace 100 MG (*)] 100 mg PO BID 07/02/18 Ergocalciferol [Vitamin D2 (*)] 50,000 unit PO Q30D 07/02/18 Fluticasone/Salmeter 100/50Mcg 1 puffs IH BID 07/02/18 [Advair 100/50 (*)] Herbals/Supplements -Info Only 1 ea PO DAILY 07/02/18 Hydrocortisone 1% [Hydrocortisone 1 sj TP Q4H PRN 07/02/18 1% cream (*)] Ipratropium/Albuterol [Duoneb (*)] 3 ml IH QID 07/02/18 Loratadine [Claritin] 10 mg PO DAILY PRN 07/02/18 Mometasone Furoate [Asmanex Hfa] 2 puffs IH BID 07/02/18 Polyethylene Glycol 3350 [Miralax 17 gm PO DAILY PRN 07/02/18 17 gm (*)] Triamcinolone 0.1% [Triamcinolone 1 sj TP BID PRN 07/02/18 0.1% Cream (*)] diphenhydrAMINE [Benadryl 25 MG 25 mg PO Q4H PRN 07/02/18 (*)] fentaNYL [Duragesic 50 MCG Patch 50 mcg TD Q72H 07/02/18 (*)] guaiFENesin [Mucinex 600 MG (*)] 600 mg PO BID 07/02/18 morphINE SR [MS Contin/Oramorph SR 30 mg PO BID@07,07/02/18 30 mg (*)] morphINE [Roxanol 10 mg/0.5 ml 0.75 ml PO Q4H PRN 07/02/18 oral soln (*)] traZODone [traZODONE 50MG (*)] 25 mg PO HS 07/02/18 predniSONE 40 mg PO DAILY #0 tablet 07/08/18 Medical Decision Making - Diagnostics Imaging Results: Chest x-ray shows no acute changes compared to prior per my interpretation. Imaging: I viewed and interpreted images myself ED Course/Re-evaluation: 63-year-old woman with COPD exacerbation coming in in severe distress. Patient has been placed on BiPAP with significant improvement. She was more comfortable now. Heart rate and respiratory rate are coming down oxygen saturations 96%. Chest x-ray shows no focal infiltrate per my interpretation. I am awaiting the remainder of her laboratory results. I have discussed with Dr. Mckeon, hospitalist. Will admit to her service for further care. - Data Points Laboratory Results: Laboratory Results 07/23/18 04:20 07/23/18 04:20 07/23/18 07/23/18 07/23/18 04:30 04:20 04:20 WBC 8.53 10^3/uL 10^3/uL (3.80-9.50) RBC 4.03 10^6/uL L 10^6/uL (4.18-5.33) Hgb 12.1 g/dL L g/dL (12.6-16.3) Hct 37.8 % L % (38.0-47.0) MCV 93.8 fL fL (81.5-99.8) MCH 30.0 pg pg (27.9-34.1) MCHC 32.0 g/dL L g/dL (32.4-36.7) RDW 13.4 % % (11.5-15.2) Plt Count 159 10^3/uL 10^3/uL (150-400) MPV 10.8 fL fL (8.7-11.7) Neut % (Auto) 73.7 % % (39.3-74.2) Lymph % (Auto) 16.2 % % (15.0-45.0) [place] % (Auto) 8.8 % % (4.5-13.0) Eos % (Auto) 0.6 % % (0.6-7.6) Baso % (Auto) 0.2 % L % (0.3-1.7) Nucleat RBC Rel Count 0.0 % % (0.0-0.2) Absolute Neuts (auto) 6.29 10^3/uL 10^3/uL (1.70-6.50) Absolute Lymphs (auto) 1.38 10^3/uL 10^3/uL (1.00-3.00) Absolute Monos (auto) 0.75 10^3/uL 10^3/uL (0.30-0.80) Absolute Eos (auto) 0.05 10^3/uL 10^3/uL (0.03-0.40) Absolute Basos (auto) 0.02 10^3/uL 10^3/uL (0.02-0.10) Absolute Nucleated RBC 0.00 10^3/uL 10^3/uL (0-0.01) Immature Gran % 0.5 % % (0.0-1.1) Immature Gran # 0.04 10^3/uL 10^3/uL (0.00-0.10) Sodium 134 mEq/L L mEq/L (135-145) Potassium 4.4 mEq/L mEq/L (3.5-5.2) Chloride 94 mEq/L L mEq/L (97-110) Carbon Dioxide 33 mEq/l H mEq/l (22-31) Anion Gap 7 mEq/L mEq/L (6-14) BUN 6 mg/dL L mg/dL (7-23) Creatinine 0.4 mg/dL L mg/dL (0.6-1.0) Estimated GFR > 60 Glucose 145 mg/dL H mg/dL (70-100) Calcium 8.7 mg/dL mg/dL (8.5-10.4) Nasal Influenza A PCR Pending Nasal Influenza B PCR Pending Departure - Departure Disposition: [facility] Inpatient Acute Clinical Impression: Chronic obstructive pulmonary disease with acute exacerbation Condition: Serious Referrals: CRUZ KOHLER [Primary Care Provider] - As per Instructions
[2018-07-23] MEDS ORDERED: ONDANSETRON 4 MG/2 ML VIAL IVP PRN (06:49)
--- NOTE | 2018-07-23 07:34 | GHP ---
[f rep st] HISTORY AND PHYSICAL DATE OF ADMISSION: 07/23/2018 SOURCE: Patient is not able to provide significant history as she is in respiratory distress with a BiPAP in place. EMR was reviewed and case discussed with ED provider. CHIEF COMPLAINT: Shortness of breath. HISTORY OF PRESENT ILLNESS: This is a 63-year-old female with advanced COPD, chronically on 8 liters per minute of oxygen; anxiety; chronic back pain who presents to the emergency department via EMS fr [facility] with complaints of sudden onset of worsening shortness of breath. The patient repor ts that she has had some rhinorrhea, a cough. No reported fevers or chills. [facility] that her roommate had been sick with similar upper respiratory symptoms. No diarrhea. The p atient did try to take 1 nebulizer at home. EMS called, and they gave her several DuoNebs as well as Solu-Medrol. The patient reports that she has been having increasing cough. REVIEW OF SYSTEMS: Ten systems, unable to review due to patient's respiratory status as noted above. PAST MEDICAL HISTORY: COPD with 8 liters per minute baseline oxygen requirement, anxiety, chronic ba ck pain, cognitive deficits. PAST SURGICAL HISTORY: Hysterectomy, spine surgery. FAMILY HISTORY: Unable to obtain due to patient's respiratory status. SOCIAL HISTORY: Patient resides at [facility]. She quit tobacco several months ago. She does no t drink or use any illicit drugs. CODE STATUS: Full. Patient was previously on hospice, revoked since her last hospital stay on 07/02. PHYSICAL EXAMINATION: VITAL SIGNS: Upon arrival to the ED, blood pressure 169/120, heart rate 136, respiratory rate 26. O2 saturation is 95% 10 liters by OxyMask. Temperature 36.6. Current vitals a vailable: Blood pressure 100/73, heart rate 103, respiratory rate 20, 98% on BiPAP, 40% FiO2. GENER AL: Patient not in acute distress. She is chronically ill appearing, appears older than stated age. She is resting quietly with a BiPAP in place. She does appear quite fatigued. Nontoxic. HEAD: N ormocephalic, atraumatic. EYES: Extraocular muscles exam limited. Patient is fatigued. Pupils sj ear equal and round. No scleral icterus or conjunctival injection. ENT: Limited with BiPAP mask in place, but mucous membranes appear dry. No nasal discharge appreciated. NECK: Supple. Trachea mi dline. CV: Tachycardic with regular rhythm. Limited exam. Unable to appreciate any murmurs. RESP IRATORY: Patient with significantly diminished air movement in all lung ching. She has an expirato ry wheeze in the left anterior lung field, otherwise diminished diffusely. ABDOMEN: Positive bowel sounds. Soft, nontender to palpation. No rebound, guarding or masses appreciated. : No suprapub ic tenderness to palpation. No Lynn catheter in place. EXTREMITIES: Patient without any apparent cyanosis, clubbing or edema appreciated. Patient with 2+ pedal pulses bilaterally and symmetric. NE URO: Grossly nonfocal. Moves all extremities. Exam is limited due to patient's BiPAP, but she can move her extremities while lying in bed. She does appear to have generalized weakness. PSYCH: Affe ct slightly flat, but patient does appear ill but nontoxic. She does attempt to cooperate with the B iPAP mask in place. LABORATORY STUDIES: WBC 8.53, hemoglobin and hematocrit are 12.1 and 37.8, MCV of 93.8, platelet cou nt is 159, neutrophil percent 72.7, no bands. Sodium is 134, potassium is 4.4, chloride is 194, CO2 is 33, anion gap is 7, BUN is 6, creatinine 0.4, GFR greater than 60, glucose is 145, calcium is 8.7. Flu A and B negative. IMAGING: Chest x-ray: Image reviewed myself. Report is still pending. Compared to x-ray from 06/17, shows bibasilar reticular opacities similar to previous imaging, which, likely, represent sca rring and atelectasis. Lungs hyperinflated. ASSESSMENT/PLAN: A 63-year-old female with a history of advanced chronic obstructive pulmonary disea se with 8 liters per minute baseline oxygen requirement presents to the ED from [facility] with acute exacerbation of her chronic obstructive pulmonary disease and hypoxia. 1. [id number] hypoxic respiratory failure. The patient improved after steroids, nebs and BiPA P placement. Will continue the BiPAP until such time patient can be transitioned. Until her BiPAP i s in place, she will require ICU level of care. If she is able to transition, may transfer to the Ne d/Surg floor. Continue with DuoNebs, Pulmicort nebs, steroids, BiPAP p.r.n. 2. Chronic obstructive pulmonary disease exacerbation. Continue treatment as noted above. Likely t colorist of upper respiratory infection. Patient reports a roommate is ill, and she has been having in creasing coughing. 3. Hyponatremia. Mildly decreased. Likely due to some dehydration. Continue with some gentle intr avenous fluid hydration. 4. Elevated blood sugar. Likely related to patient's Solu-Medrol received prior to arrival. 5. Anemia. Likely a component of chronic disease. H and H are slightly improved from her discharge on July 03, 2018. No active evidence of active bleeding. Continue to monitor. 6. Anxiety. Currently, patient is cooperative and calm. 7. History of chronic back pain. On chronic narcotic therapy. Holding pending patient's respirator y status improvement. 8. Fluid, Electrolyte, Nutrition. Intravenous fluids as noted above. Electrolytes are adequate, do not require replacement. Advance diet as tolerated when patient's respiratory status improves, can safely swallow. 9. Prophylaxis. SCDs. Lovenox. 10. Code status is full. Patient with MOST form. 11. Disposition. Patient admitted to inpatient status on the SDU floor as she is currently requirin g BiPAP and anticipate that, given her chronically and severe lung disease, she will require several days for stabilization before she can be discharged. /[id number]/MODL
[2018-07-23] MEDS: BUDESONIDE 0.5 MG/2 ML AMPUL.NEB IH SCH ×2 (08:19→21:01)
[2018-07-23] MEDS: ACETAMINOPHEN 325 MG TAB PO PRN ×3 (09:14→21:25)
[2018-07-23] MEDS ORDERED: POLYETHYLENE GLYCOL 3350 17 GM PKT PO PRN (09:56)
[2018-07-23] MEDS ORDERED: HYDROCORTISONE 1% CREAM TP PRN (09:56)
[2018-07-23] MEDS ORDERED: TIOTROPIUM INHALER 18 MCG/DOSE 5 DOSE/MDI IH SCH (10:00)
[2018-07-23] MEDS ORDERED: fentaNYL 50 MCG PATCH TD SCH (10:00)
--- NOTE | 2018-07-23 10:02 | PDMN ---
Medical Necessity Medical necessity: MCG M100 COPD: 63 yo w/ acute on chronic hypoxic resp failure in setting of COPD exacerbation likely due to URI. Normally on 8L O2 baseline but requiring BIPAP to maintain sats>90%, Pt is tachypneac and tachycardic. Cont nebs, steroids. Admit to IP status SDU for BIPAP requirement and given chronically and severe lung disease, pt will require several days for stabilization before d/c.
[2018-07-23] MEDS: morphINE SR 30 MG TAB PO SCH ×2 (10:43→19:30)
[2018-07-23] MEDS: ENOXAPARIN 40 MG/0.4 ML SYR SC SCH (10:51)
[2018-07-23] MEDS: morphINE 10 MG/0.5 ML UDSYR PO PRN ×3 (10:57→19:30)
[2018-07-23] MEDS ORDERED: DIAZEPAM 5 MG TAB PO ONE (11:00)
[2018-07-23] MEDS: NS 1,000 ML IV SCH (11:20)
[2018-07-23] MEDS: IPRATROPIUM/ALBUTEROL 3 ML DEYVIAL IH SCH ×3 (11:24→20:52)
[2018-07-23] MEDS ORDERED: IPRATROPIUM/ALBUTEROL 3 ML DEYVIAL IH SCH (12:00)
--- NOTE | 2018-07-23 12:38 | GCON ---
[f rep st] CONSULTATION SCRAP WHEELER CONSULTATION REFERRING PHYSICIAN: Minerva Mckeon MD REASON FOR CONSULTATION: End-stage chronic obstructive pulmonary disease. The patient is a 63-year-old white female with an extensive past medical history including severe end -stage chronic obstructive pulmonary disease for which she is oxygen-dependent. She also has anxiety , chronic back pain. She was brought via EMS from [facility] after having worsening breathlessnes s. This apparently came on quite quickly. Apparently, her roommate at [facility] had an upper re spiratory tract infection. She was brought in, seen in the emergency room and subsequently to the in tensive care unit. Currently, she is resting comfortably on supplemental oxygen. She denies any felisha st pain, pleuritic-type chest pain or angina equivalent. She admits to a cough that is nonproductive . There are no fever or night sweats. REVIEW OF SYSTEMS: A 10-point review of systems was performed and negative except for what was liste d in HPI. PAST MEDICAL HISTORY: Significant for chronic back pain, anxiety, oxygen-dependence and severe end-s tage chronic obstructive pulmonary disease. PAST SURGICAL HISTORY: Hysterectomy and spine surgery. SOCIAL HISTORY: Previous heavy smoker, quit several months ago. She does not drink. She resides at [facility]. She was recently in hospice, but has resigned this. PHYSICAL EXAM: VITAL SIGNS: Blood pressure 105/79, pulse 92, respirations 20, temperature 36.7, oxy gen saturation 100% on 5 L. GENERAL: She is a thin, somewhat malnourished 63-year-old white female who is resting comfortably on supplemental oxygen. HEENT: Eyes HALEIGH, EOMI. Throat exam is deferred secondary to oxygen mask. NECK: Supple. No cervical adenopathy. HEART: Regular rate and rhythm with a 2/6 systolic murmur at the left sternal border without radiation. LUNGS: Diminished breath s ounds. She has significant prolongation expiratory phase. There is a slight end-expiratory wheeze. ABDOMEN: Soft, nontender. Bowel sounds are present in all 4 quadrants. EXTREMITIES: No clubbing, cyanosis, or edema. LABORATORIES: White count is 8.5, hemoglobin 12, hematocrit 37, platelet count 159. Sodium 134, pot assium 4.4, chloride 94, CO2 is 33, BUN 6, creatinine 0.4, glucose is 145. Influenza A and B are neg ative. Chest x-ray reviewed by myself, reveals COPD like changes. There is a possible early right l ower lobe pneumonia. IMPRESSION: 1. Severe end-stage chronic obstructive pulmonary disease. 2. Acute on chronic respiratory failure. 3. Acute exacerbation of her chronic obstructive pulmonary disease. 4. Hyponatremia. 5. Anemia. 6. Chronic back pain. RECOMMENDATIONS: 1. Agree with current use of steroids and nebs. 2. Continue BiPAP intermittently as needed. 3. Continue current nebulized treatment with DuoNeb. 4. Would add antibiotics. 5. Aggressive blood sugar control. 6. Adequate pain control. 7. DVT and PE prophylaxis. 8. Stress ulcer prophylaxis. 9. Early ambulation. Thank you very much for allowing me to participate in the care of this interesting patient. Will fol low along with you. /[id number]/MODL
[2018-07-23] MEDS: AZITHROMYCIN 250 MG TAB PO SCH (15:27)
[2018-07-23] MEDS: DIAZEPAM 5 MG TAB PO SCH ×2 (16:03→21:26)
[2018-07-23] MEDS: BENZONATATE 100 MG CAP PO SCH ×2 (16:03→21:25)
[2018-07-23] MEDS ORDERED: MOMETASONE 220MCG INHALER IH SCH (21:00)
[2018-07-23] MEDS: DOCUSATE SODIUM 100 MG CAP PO SCH (21:25)
[2018-07-23] MEDS: methylPREDNISolone SOD SUCC 125 MG/2 ML VIAL IVP SCH (21:26)
[2018-07-23] MEDS: guaiFENesin 600 MG TAB.ER PO SCH (21:26)
[2018-07-24] MEDS: morphINE 10 MG/0.5 ML UDSYR PO PRN ×6 (00:31→21:35)
[2018-07-24] MEDS: NS 1,000 ML IV SCH (03:53)
[2018-07-24] MEDS: IPRATROPIUM/ALBUTEROL 3 ML DEYVIAL IH SCH ×4 (05:06→21:37)
[2018-07-24] MEDS: morphINE SR 30 MG TAB PO SCH ×2 (06:33→18:43)
[2018-07-24] MEDS ORDERED: CETIRIZINE 10 MG TAB PO PRN (09:00)
[2018-07-24] MEDS: BUDESONIDE 0.5 MG/2 ML AMPUL.NEB IH SCH ×2 (09:12→19:59)
[2018-07-24] MEDS: ENOXAPARIN 40 MG/0.4 ML SYR SC SCH (09:21)
[2018-07-24] MEDS: DIAZEPAM 5 MG TAB PO SCH ×3 (09:21→21:06)
[2018-07-24] MEDS: AZITHROMYCIN 250 MG TAB PO SCH (09:21)
[2018-07-24] MEDS: BENZONATATE 100 MG CAP PO SCH ×3 (09:21→21:05)
[2018-07-24] MEDS: guaiFENesin 600 MG TAB.ER PO SCH ×2 (09:21→21:05)
[2018-07-24] MEDS: methylPREDNISolone SOD SUCC 125 MG/2 ML VIAL IVP SCH (09:22)
[2018-07-24] MEDS: DOCUSATE SODIUM 100 MG CAP PO SCH ×2 (09:22→21:06)
--- NOTE | 2018-07-24 09:25 | PDINTPN ---
Employment Officer Progress Note Assessment/Plan: Assessment/plan: * End-stage emphysema * COPD with acute exacerbation -continue IV steroids and frequent nebulized treatments -azithromycin added yesterday * Chronic back pain-continue pain medication -will increase her Duragesic past to 75 mcg * Oxygen dependence * Anxiety -continue anxiolytic * VT prophylaxis * Stress ulcer prophylaxis * PT/OT Subjective: Mildly more breathless. Requesting nebulizer treatment. Complains of some back pain. Objective: Vital Signs Temp Pulse Resp BP Pulse Ox 36.3 C 95 18 115/68 99 07/24/18 07:40 07/24/18 09:16 07/24/18 09:16 07/24/18 07:40 07/24/18 09:16 07/23/18 07/24/18 07/25/18 05:59 05:59 05:59 Intake Total 1428 Output Total 1275 Balance 153 - Time Spent With Patient Time Spent With Patient: 35 min of time spent with patient, over 1/2 involved with coordination of care or counseling. Case discussed with respiratory therapy and nursing Physical Exam - Physical Exam General Appearance: alert, mild distress EENT: PERRL/EOMI Neck: non-tender, supple Respiratory: respiratory distress (Mild), wheezing (Slight), prolonged expiration Cardiac/Chest: normal peripheral pulses, regular rate, rhythm, systolic murmur Peripheral Pulses: 2+: carotid (R), carotid (L), femoral (R), femoral (L), dorsalis-pedis (R), dorsalis-pedis (L) Abdomen: normal bowel sounds, non-tender, soft Pelvic Exam: deferred Rectal: deferred Skin: normal color, warm/dry Extremities: normal range of motion, non-tender, normal inspection, normal capillary refill Neuro/Psych: no motor/sensory deficits, alert, normal mood/affect, oriented x 3 ICD10 Worksheet Patient Problems: Problems Problem Status Onset Chronic obstructive pulmonary disease with acute exacerbation Acute
[2018-07-24] MEDS: predniSONE 20 MG TAB PO SCH (11:32)
[2018-07-24] MEDS: fentaNYL 75 MCG PATCH TD SCH (11:32)
--- NOTE | 2018-07-24 12:14 | HOSPPROG ---
Hospitalist Progress Note Assessment/Plan: DIAGNOSES: * Acute hypoxemic respiratory failure with chronic hypoxemic respiratory failure * Acute COPD exacerbation * Nausea, diarrhea * Mild hyperglycemia likely secondary to steroid and stress of acute illness * Chronic back pain * Chronic "cognitive deficits" PLANS: * Continue current bronchodilators and steroids * Continue azithromycin * Pulmonary hygiene measures * Increase activity as able * Antiemetic p.r.n. * Follow course of her abdominal and digestive symptoms closely, consider further assessment if they do not resolve * Continue her current pain management doses for chronic pain SUBJECTIVE: Today complains largely of having had an episode of sharp pain in the left low abdomen followed by an episode of explosive diarrhea at home yesterday before coming here. At this point she does not have pain and has had no subsequent bowel movements, but her abdomen feels bloated and she is nauseous requesting Zofran. Still short of breath unchanged from yesterday OBJECTIVE Vitals reviewed: Normal without fever Stamp Pad Maker, my review: Sinus Exam: alert oriented, looks uncomfortable but not in any distress skin warm dry color ok resps mildly labored lungs diminished but otherwise clear BSs heart regular abd soft nondistended nontender, bowel sounds present limbs warm, no edema iv site ok Microbiology: Respiratory pathogen panel negative Objective: Vital Signs Temp Pulse Resp BP Pulse Ox 36.3 C 95 18 115/68 99 07/24/18 07:40 07/24/18 09:16 07/24/18 09:16 07/24/18 07:40 07/24/18 09:16 07/23/18 07/24/18 07/25/18 06:59 06:59 06:59 Intake Total 1428 Output Total 3583 300 Balance 153 -300 ICD10 Worksheet Patient Problems: Problems Problem Status Onset Chronic obstructive pulmonary disease with acute exacerbation Acute
[2018-07-24] MEDS: ALBUTEROL 3 ML DEYVIAL IH PRN ×2 (13:06→19:59)
--- NOTE | 2018-07-24 13:07 | ASMTCASEMG ---
Living Arrangements What is your living Answers: Alone arrangement? Who do you live with? Type Of Residence What kind of residence do Answers: Apartment you live in? Discharge Plan Comments Coordination Status Comments Notes: Patient is a 63yo female with hx of COPD on 8LO2 at baseline who comes from [facility] with complaints of sudden worsening of shortness of breath. Patient has been admitted for hypoxic respiratory failure, COPD exacerbation, elevated blood sugar, anemia, anxiety and fluid, electrolyte, and nutrition. No therapies ordered. Likely, the patient will discharge back to [facility]. CM available if d/c needs arise. Date Signed: 07/24/2018 01:07 PM Electronically Signed By:Ann Ibrahim LCSW
[2018-07-24] MEDS: ONDANSETRON DISINTEGRATING 4 MG TAB PO PRN ×2 (13:31→21:05)
[2018-07-24] MEDS: ACETAMINOPHEN 325 MG TAB PO PRN ×2 (16:10→21:06)
[2018-07-25] MEDS: ALBUTEROL 3 ML DEYVIAL IH PRN ×3 (01:21→23:55)
[2018-07-25] MEDS: ACETAMINOPHEN 325 MG TAB PO PRN ×5 (01:44→21:19)
[2018-07-25] MEDS: morphINE 10 MG/0.5 ML UDSYR PO PRN ×5 (01:44→20:08)
[2018-07-25] MEDS: diphenhydrAMINE 25 MG CAP PO PRN (03:34)
[2018-07-25] MEDS: IPRATROPIUM/ALBUTEROL 3 ML DEYVIAL IH SCH ×4 (05:04→13:04)
[2018-07-25] MEDS: morphINE SR 30 MG TAB PO SCH ×2 (06:06→18:02)
[2018-07-25] MEDS: guaiFENesin 600 MG TAB.ER PO SCH ×2 (08:48→21:21)
[2018-07-25] MEDS: ENOXAPARIN 40 MG/0.4 ML SYR SC SCH (08:49)
[2018-07-25] MEDS: DIAZEPAM 5 MG TAB PO SCH ×3 (08:49→21:20)
[2018-07-25] MEDS: predniSONE 20 MG TAB PO SCH (08:49)
[2018-07-25] MEDS: AZITHROMYCIN 250 MG TAB PO SCH (08:49)
[2018-07-25] MEDS: BENZONATATE 100 MG CAP PO SCH ×3 (08:49→21:20)
[2018-07-25] MEDS: DOCUSATE SODIUM 100 MG CAP PO SCH ×2 (08:50→22:40)
[2018-07-25] MEDS: BUDESONIDE 0.5 MG/2 ML AMPUL.NEB IH SCH (09:05)
[2018-07-25] MEDS: MOMETASONE 220MCG INHALER IH SCH ×3 (09:40→21:31)
--- NOTE | 2018-07-25 12:32 | SOAPPROG ---
SOAP Progress Note Assessment/Plan: Assessment/plan: * End-stage emphysema * COPD with acute exacerbation -continue steroids and frequent nebulized treatments -azithromycin added yesterday * Chronic back pain-continue pain medication -will increase her Duragesic past to 75 mcg * Oxygen dependence * Anxiety -continue anxiolytic * VT prophylaxis * Stress ulcer prophylaxis * PT/OT Subjective: Breathing somewhat easier. Minimal cough. She denies any chest pain. Objective: Vital Signs Temp Pulse Resp BP Pulse Ox 36.6 C 93 18 116/69 100 07/25/18 07:48 07/25/18 11:19 07/25/18 11:19 07/25/18 07:48 07/25/18 11:19 07/24/18 07/25/18 07/26/18 05:59 05:59 05:59 Intake Total 1428 2490 350 Output Total 1275 800 Balance 153 1690 350 - Time Spent With Patient Time Spent With Patient: 25 min of time spent with patient, over 1/2 involved with coordination of care or counseling. Physical Exam - Physical Exam General Appearance: alert, no apparent distress EENT: PERRL/EOMI Neck: non-tender, supple Respiratory: wheezing (Slight), prolonged expiration, No respiratory distress Cardiac/Chest: normal peripheral pulses, regular rate, rhythm Abdomen: normal bowel sounds, non-tender, soft Pelvic Exam: deferred Rectal: deferred Skin: normal color, warm/dry Extremities: normal range of motion, non-tender, normal inspection, normal capillary refill Neuro/Psych: alert ICD10 Worksheet Patient Problems: Problems Problem Status Onset Chronic obstructive pulmonary disease with acute exacerbation Acute
[2018-07-25] MEDS: ALBUTEROL 3 ML DEYVIAL IH SCH ×2 (16:36→21:22)
[2018-07-25] MEDS: TIOTROPIUM INHALER 18 MCG/DOSE 5 DOSE/MDI IH SCH ×2 (16:36→17:42)
--- NOTE | 2018-07-25 17:38 | HOSPPROG ---
Hospitalist Progress Note Assessment/Plan: * Acute on chronic respiratory failure -currently on 8L - per patient baseline is 3-4 L * COPD exacerbation -patient requests IV steroids, Spiriva, Asmanex as these work best for her * Continuous narcotic dependency -home meds * Anxiety -chronic benzos Subjective: Frustrated as she is worse than yesterday, thinks we are not being aggressive enough in her resp care, wants her usual meds as these work best for her. Objective: Vital Signs Temp Pulse Resp BP Pulse Ox 36.7 C 93 18 112/67 97 07/25/18 16:00 07/25/18 16:38 07/25/18 16:38 07/25/18 16:00 07/25/18 16:38 07/24/18 07/25/18 07/26/18 05:59 05:59 05:59 Intake Total 1428 2490 350 Output Total 1275 800 Balance 153 1690 350 CXR viewed, my personal interpretation is - possible early infiltrate Laboratory Tests 07/23/18 07/23/18 04:20 04:20 Hct 37.8 L Sodium 134 L Creatinine 0.4 L tele reviewed - sinus - Physical Exam Constitutional: no apparent distress, appears nourished, not in pain Cardiovascular: regular rate and rhythym, no murmur, rub, or gallop Respiratory: no respiratory distress, no rales or rhonchi, clear to auscultation Gastrointestinal: normoactive bowel sounds, soft, non-tender abdomen, no palpable masses Skin: no rashes or abrasions, no fluctuance, no induration Neurologic: AAOx3, sensation intact bilaterally Psychiatric: interacting appropriately, not anxious, not encephalopathic, thought process linear ICD10 Worksheet Patient Problems: Problems Problem Status Onset Chronic obstructive pulmonary disease with acute exacerbation Acute
[2018-07-25] MEDS: methylPREDNISolone SOD SUCC 125 MG/2 ML VIAL IVP SCH (21:22)
[2018-07-26] MEDS: morphINE 10 MG/0.5 ML UDSYR PO PRN ×6 (00:32→21:55)
[2018-07-26] MEDS: ALBUTEROL 3 ML DEYVIAL IH SCH ×5 (04:04→20:02)
[2018-07-26] MEDS: ACETAMINOPHEN 325 MG TAB PO PRN ×5 (04:36→21:54)
[2018-07-26 06:13] LABS: PLATELET COUNT 146 10^3/uL (150-400)
[2018-07-26] MEDS: morphINE SR 30 MG TAB PO SCH ×2 (06:20→18:43)
[2018-07-26] MEDS: DIAZEPAM 5 MG TAB PO SCH ×3 (08:05→21:54)
[2018-07-26] MEDS: BENZONATATE 100 MG CAP PO SCH ×3 (08:06→21:54)
[2018-07-26] MEDS: AZITHROMYCIN 250 MG TAB PO SCH (08:06)
[2018-07-26] MEDS: ENOXAPARIN 40 MG/0.4 ML SYR SC SCH (08:06)
[2018-07-26] MEDS: guaiFENesin 600 MG TAB.ER PO SCH ×2 (08:06→20:25)
[2018-07-26] MEDS: methylPREDNISolone SOD SUCC 125 MG/2 ML VIAL IVP SCH ×2 (08:07→20:26)
[2018-07-26] MEDS: DOCUSATE SODIUM 100 MG CAP PO SCH ×2 (08:08→20:33)
[2018-07-26] MEDS: TIOTROPIUM INHALER 18 MCG/DOSE 5 DOSE/MDI IH SCH (09:31)
[2018-07-26] MEDS: MOMETASONE 220MCG INHALER IH SCH ×2 (09:31→20:02)
--- NOTE | 2018-07-26 12:57 | SOAPPROG ---
SOAP Progress Note Assessment/Plan: Assessment/plan: * End-stage emphysema * COPD with acute exacerbation. Slow to improve -continue steroids and frequent nebulized treatments with albuterol -Spiriva restarted -azithromycin added yesterday * Chronic back pain-continue pain medication -will increase her Duragesic past to 75 mcg * Oxygen dependence * Anxiety -continue anxiolytic * VT prophylaxis * Stress ulcer prophylaxis * PT/OT Subjective: Minimally better. Objective: Vital Signs Temp Pulse Resp BP Pulse Ox 36.7 C 85 13 129/77 H 99 07/26/18 11:49 07/26/18 11:49 07/26/18 11:49 07/26/18 11:49 07/26/18 11:49 Laboratory Results 07/26/18 05:00 07/26/18 05:00 07/25/18 07/26/18 07/27/18 05:59 05:59 05:59 Intake Total 2490 950 Output Total 800 Balance 1690 950 - Time Spent With Patient Time Spent With Patient: 25 min of time spent with patient, over 1/2 involved with coordination of care or counseling. Physical Exam - Physical Exam General Appearance: alert, no apparent distress EENT: PERRL/EOMI Neck: non-tender, supple Respiratory: chest non-tender, respiratory distress (Mild), prolonged expiration , No wheezing Cardiac/Chest: normal peripheral pulses, regular rate, rhythm Peripheral Pulses: 2+: carotid (R), carotid (L), femoral (R), femoral (L), dorsalis-pedis (R), dorsalis-pedis (L) Abdomen: normal bowel sounds, non-tender, soft Pelvic Exam: deferred Rectal: deferred Extremities: non-tender Neuro/Psych: alert, normal mood/affect ICD10 Worksheet Patient Problems: Problems Problem Status Onset Chronic obstructive pulmonary disease with acute exacerbation Acute
[2018-07-26] MEDS: ALBUTEROL 3 ML DEYVIAL IH PRN (14:15)
--- NOTE | 2018-07-26 17:47 | HOSPPROG ---
Hospitalist Progress Note Assessment/Plan: * Acute on chronic respiratory failure -currently on 6L - per patient baseline is 3-4 L -refusing titrate down O2 - agreed to lowering O2 tomorrow * COPD exacerbation -patient requests IV steroids, Spiriva, Asmanex as these work best for her * Continuous narcotic dependency for chronic low back pain -home meds * Anxiety -chronic benzos -still very anxious - contributing to her persistent SOB Subjective: Still SOB Objective: Vital Signs Temp Pulse Resp BP Pulse Ox 36.8 C 96 18 114/79 97 07/26/18 15:46 07/26/18 16:16 07/26/18 16:16 07/26/18 15:46 07/26/18 16:16 Laboratory Results 07/26/18 05:00 07/26/18 05:00 07/25/18 07/26/18 07/27/18 05:59 05:59 05:59 Intake Total 2490 950 Output Total 800 Balance 1690 950 - Physical Exam Constitutional: no apparent distress, appears nourished, not in pain Cardiovascular: regular rate and rhythym, no murmur, rub, or gallop Respiratory: no respiratory distress, no rales or rhonchi, clear to auscultation Gastrointestinal: normoactive bowel sounds, soft, non-tender abdomen, no palpable masses Skin: no rashes or abrasions, no fluctuance, no induration Neurologic: AAOx3, sensation intact bilaterally Psychiatric: interacting appropriately, not anxious, not encephalopathic, thought process linear ICD10 Worksheet Patient Problems: Problems Problem Status Onset Chronic obstructive pulmonary disease with acute exacerbation Acute
[2018-07-27] MEDS: morphINE 10 MG/0.5 ML UDSYR PO PRN ×3 (02:17→12:18)
[2018-07-27] MEDS: ALBUTEROL 3 ML DEYVIAL IH SCH ×5 (04:37→20:54)
[2018-07-27] MEDS: morphINE SR 30 MG TAB PO SCH ×2 (06:00→18:38)
[2018-07-27] MEDS: guaiFENesin 600 MG TAB.ER PO SCH ×2 (08:17→19:53)
[2018-07-27] MEDS: ENOXAPARIN 40 MG/0.4 ML SYR SC SCH (08:17)
[2018-07-27] MEDS: DIAZEPAM 5 MG TAB PO SCH ×3 (08:17→21:42)
[2018-07-27] MEDS: BENZONATATE 100 MG CAP PO SCH ×3 (08:17→21:42)
[2018-07-27] MEDS: methylPREDNISolone SOD SUCC 125 MG/2 ML VIAL IVP SCH (08:17)
[2018-07-27] MEDS: AZITHROMYCIN 250 MG TAB PO SCH (08:17)
[2018-07-27] MEDS: DOCUSATE SODIUM 100 MG CAP PO SCH (08:24)
[2018-07-27] MEDS: TIOTROPIUM INHALER 18 MCG/DOSE 5 DOSE/MDI IH SCH (08:26)
[2018-07-27] MEDS: MOMETASONE 220MCG INHALER IH SCH ×2 (08:27→20:54)
[2018-07-27] MEDS: ONDANSETRON DISINTEGRATING 4 MG TAB PO PRN (08:30)
[2018-07-27] MEDS: ALBUTEROL 3 ML DEYVIAL IH PRN ×2 (08:40→17:50)
[2018-07-27] MEDS: fentaNYL 75 MCG PATCH TD SCH (09:05)
[2018-07-27] MEDS: predniSONE 20 MG TAB PO SCH (09:10)
[2018-07-27] MEDS ORDERED: fentaNYL 50 MCG PATCH TD SCH (14:24)
[2018-07-27] MEDS: oxyCODONE IR 5 MG TAB PO PRN ×2 (14:56→19:52)
--- NOTE | 2018-07-27 16:36 | HOSPPROG ---
Hospitalist Progress Note Assessment/Plan: * Acute on chronic respiratory failure -able to titrate O2 down 4L, but patient continues to request higher O2 for subjective SOB -was previously on hospice for end stage COPD - now back to full COR -consult palliative care to clarify goals * COPD exacerbation -back to PO steroids -Spiriva, Asmanex, QID albuterol nebs * Continuous narcotic dependency for chronic low back pain -still on Roxanol from her hospice orders -change to oxycodone, consider decrease narcs * Anxiety -chronic benzos -still very anxious - contributing to her persistent SOB Subjective: Still SOB Objective: Vital Signs Temp Pulse Resp BP Pulse Ox 36.8 C 101 H 16 134/85 H 92 07/27/18 15:35 07/27/18 15:35 07/27/18 15:35 07/27/18 15:35 07/27/18 15:35 Laboratory Results 07/26/18 05:00 07/26/18 05:00 07/26/18 07/27/18 07/28/18 05:59 05:59 05:59 Intake Total 950 800 Balance 950 800 CXR viewed, my personal interpretation is - minimal RLL infiltrate, unchanged - Time Spent With Patient Time Spent with Patient: greater than 35 minutes (prolonged time educating nursing and staff regarding need to lower O2) Time Spent with Patient: Greater than 35 minutes spent on this patients care, greater than 50% of time spent counseling, educating, and coordinating care regarding the above mentioned plan. - Physical Exam Constitutional: no apparent distress, appears nourished, not in pain Cardiovascular: regular rate and rhythym, no murmur, rub, or gallop Respiratory: no respiratory distress, no rales or rhonchi, clear to auscultation Gastrointestinal: normoactive bowel sounds, soft, non-tender abdomen, no palpable masses Skin: no rashes or abrasions, no fluctuance, no induration Neurologic: AAOx3, sensation intact bilaterally Psychiatric: interacting appropriately, not encephalopathic, thought process linear, anxious, flat affect ICD10 Worksheet Patient Problems: Problems Problem Status Onset Chronic obstructive pulmonary disease with acute exacerbation Acute
[2018-07-27] MEDS: ACETAMINOPHEN 325 MG TAB PO PRN ×2 (17:06→21:42)
[2018-07-27] MEDS: diphenhydrAMINE 25 MG CAP PO PRN (20:05)
[2018-07-28] MEDS: oxyCODONE IR 5 MG TAB PO PRN ×6 (00:17→23:02)
[2018-07-28] MEDS: ALBUTEROL 3 ML DEYVIAL IH PRN ×4 (01:10→23:46)
[2018-07-28 05:25] LABS: PLATELET COUNT 137 10^3/uL (150-400)
[2018-07-28] MEDS: ALBUTEROL 3 ML DEYVIAL IH SCH ×4 (05:32→20:46)
[2018-07-28] MEDS: morphINE SR 30 MG TAB PO SCH ×2 (06:05→18:12)
[2018-07-28] MEDS: AZITHROMYCIN 250 MG TAB PO SCH (08:50)
[2018-07-28] MEDS: DIAZEPAM 5 MG TAB PO SCH ×3 (08:50→22:15)
[2018-07-28] MEDS: BENZONATATE 100 MG CAP PO SCH ×3 (08:51→22:14)
[2018-07-28] MEDS: ENOXAPARIN 40 MG/0.4 ML SYR SC SCH (08:51)
[2018-07-28] MEDS: predniSONE 20 MG TAB PO SCH (08:51)
[2018-07-28] MEDS: guaiFENesin 600 MG TAB.ER PO SCH ×2 (08:51→22:15)
[2018-07-28] MEDS: MOMETASONE 220MCG INHALER IH SCH ×2 (08:59→20:47)
[2018-07-28] MEDS: TIOTROPIUM INHALER 18 MCG/DOSE 5 DOSE/MDI IH SCH (09:00)
[2018-07-28] MEDS ORDERED: NS 1,000 ML IV SCH (17:15)
--- NOTE | 2018-07-28 17:15 | HOSPPROG ---
Hospitalist Progress Note Assessment/Plan: * Acute on chronic respiratory failure -stable on 4L at rest, 5-6 L with exertion -suspect we are nearing her baseline * COPD exacerbation -PO steroids -Spiriva, Asmanex, QID albuterol nebs * Continuous narcotic dependency for chronic low back pain -changed Roxanol to oxycodone -consider wean as outpatient * Anxiety -chronic benzos * Hyponatremia -urine sodium 9 - c/w hypovolemia -IVF NS overnight and recheck am Palliative care consult in am to clarify goals of care, back to tomorrow afterwards Subjective: no new complaints, ongoing SOB Objective: Vital Signs Temp Pulse Resp BP Pulse Ox 36.9 C 98 18 102/68 98 07/28/18 15:46 07/28/18 16:19 07/28/18 16:19 07/28/18 15:46 07/28/18 16:19 Laboratory Results 07/28/18 04:34 07/28/18 04:34 07/27/18 07/28/18 07/29/18 05:59 05:59 05:59 Intake Total 800 1250 1000 Output Total 900 Balance 800 1250 100 - Physical Exam Constitutional: no apparent distress, appears nourished, not in pain Cardiovascular: regular rate and rhythym, no murmur, rub, or gallop Respiratory: no respiratory distress, no rales or rhonchi, clear to auscultation Gastrointestinal: normoactive bowel sounds, soft, non-tender abdomen, no palpable masses Skin: no rashes or abrasions, no fluctuance, no induration Neurologic: AAOx3, sensation intact bilaterally Psychiatric: interacting appropriately, not anxious, not encephalopathic, thought process linear ICD10 Worksheet Patient Problems: Problems Problem Status Onset Chronic obstructive pulmonary disease with acute exacerbation Acute
[2018-07-28] MEDS: ACETAMINOPHEN 325 MG TAB PO PRN (17:27)
[2018-07-28] MEDS: diphenhydrAMINE 25 MG CAP PO PRN (17:29)
[2018-07-29] MEDS: ALBUTEROL 3 ML DEYVIAL IH SCH ×3 (05:58→14:08)
[2018-07-29] MEDS: morphINE SR 30 MG TAB PO SCH (06:44)
[2018-07-29 07:58] VITALS: BP 110/63
[2018-07-29] MEDS: BENZONATATE 100 MG CAP PO SCH (08:30)
[2018-07-29] MEDS: oxyCODONE IR 5 MG TAB PO PRN ×2 (08:30→12:42)
[2018-07-29] MEDS: DIAZEPAM 5 MG TAB PO SCH (08:30)
[2018-07-29] MEDS: AZITHROMYCIN 250 MG TAB PO SCH (08:30)
[2018-07-29] MEDS: guaiFENesin 600 MG TAB.ER PO SCH (08:31)
[2018-07-29] MEDS: ENOXAPARIN 40 MG/0.4 ML SYR SC SCH (08:31)
[2018-07-29] MEDS: predniSONE 20 MG TAB PO SCH (08:31)
[2018-07-29] MEDS: TIOTROPIUM INHALER 18 MCG/DOSE 5 DOSE/MDI IH SCH (08:45)
[2018-07-29] MEDS: MOMETASONE 220MCG INHALER IH SCH (08:45)
[2018-07-29] MEDS: ALBUTEROL 3 ML DEYVIAL IH PRN (08:46)
[2018-07-29] MEDS ORDERED: fentaNYL 50 MCG PATCH TD SCH (09:00)
[2018-07-29] MEDS ORDERED: ERGOCALCIFEROL 50,000 I.UNIT CAP PO SCH (10:00)
--- NOTE | 2018-07-29 10:19 | ASMTCMCOM ---
CM Note CM Note Notes: Met with patient yesterday to discuss her return to [facility]. Spoke with Malcom from [facility] who assured me they were assisting patient with finding another facility as she is not happy at [facility]. They have sent out several referrals though they have not gotten an accepting facility yet. Patient told me [facility] is dirty and jackie and it aggravates her COPD. Discussed with patient she will need to return to [facility] since it is her home for now and we are not a part of finding her a new home. Encouraged her to stay in touch with the [facility] social science research assistant who is helping search for a new facility.CM will follow. Date Signed: 07/29/2018 10:19 AM Electronically Signed By:Ann Ibrahim LCSW
--- NOTE | 2018-07-29 11:03 | PDIAF ---
- Diagnosis Diagnosis: COPD exacerbation Code Status: Full Code - Medication Management Additional Medication Instructions: Prednisone taper - 40mg for 3 days, then 30mg for 3 days, then 20mg for 3 days, then 10mg for 3 days then off Discharge Medications: electronically signed and located in the Home Medication List. - Orders Services needed: Physical Therapy, Occupational Therapy Isolation Type: None Diet Recommendation: no restrictions on diet Additional Instructions: Outpatient palliative care - Follow Up Care Current Providers and Referrals: CRUZ KOHLER [Primary Care Provider] - As per Instructions
[2018-07-29] MEDS ORDERED: SALMETEROL DISKUS MDI IH SCH (11:45)
--- NOTE | 2018-07-29 13:03 | ASMTDCNOTE ---
Case Management Discharge Discharge Order Complete? Answers: Yes Patient to Obtain Answers: Other Notes: [facility] Medications Transportation Arranged Answers: Other Notes: [facility] will Pick (Date 07/29/2018 12:00 AM & Time) Case Management Transport Answers: Yes Notes: [facility] arranged Form Complete Faxed Final Orders Answers: Yes Notes: [facility] Agency/Facility Transfer Answers: Yes Notes: [facility] Report Printed & Faxed to Receiving Agency Family Notified Answers: Yes Notes: daughter Discharge Comments Notes: Patient is discharging back to [facility] today. Malcom from admissions, [facility] arranged transport for patient with [facility] with pick up truck driver between 2:30 and 3:00 PM. ([phone]) Discharge summaries were Allscripted to [facility]. Nurse to nurse arranged with patient's nurseYaneli. No further needs. Date Signed: 07/29/2018 01:03 PM Electronically Signed By:Ann Ibrahim LCSW
--- NOTE | 2018-07-29 13:04 | ASMTLACE ---
MERONE Length of stay for Answers: 4-6 days current admission Acuity / Level of Answers: Yes Care: Did the patient have an inpatient admission? Comorbidities - select Answers: Chronic pulmonary disease all that apply Opioid dependence / Chronic pain # of Emergency department Answers: 1-2 visits in the last 6 months Social determinants Answers: Mental health diagnosis (anxiety, depression, pers onality disorders, etc.) Score: 17 Date Signed: 07/29/2018 01:04 PM Electronically Signed By:Ann Ibrahim LCSW
--- NOTE | 2018-07-29 13:10 | ASDISCHSUM ---
Discharge Information Plan Status:SNF Medically Cleared to Leave:07/28/2018 Discharge Date:07/28/2018 CM D/C Disposition:[facility] Facility ADT D/C Disposition:[facility] Facility Projected Discharge Date:07/29/2018 11:00 AM Transportation at D/C:Other Discharge Delay Reason: Follow-Up Date:07/29/2018 11:00 AM Discharge Slot:2 - 12:01 pm - 18:00 pm Final Diagnosis:COPD Placement Information Referral Type:*Group Home/SNF Referral ID:[id number] Provider Name:Phong [facility] Address 1:[address] Address 2: Fax Number: [facility]:[place] Selection Factors: State:[place] Patient Contact Information Contact Name:BRYNANA Relationship:Daughter Address:[address] [address] Work Phone: [facility]:TRE [place] Alternate Phone: [facility]/Zip Code:[place] [address] Email: Financial Information Financial Class:Medicare Primary Plan Desc:MEDICARE INPATIENT Primary Plan Number:[id number] Secondary Plan Desc:[place] Secondary Plan Number:[id number] Assessment Information LACE LACE Length of stay for Answers: 4-6 days current admission Acuity / Level of Answers: Yes Care: Did the patient have an inpatient admission? Comorbidities - select Answers: Chronic pulmonary disease all that apply Opioid dependence / Chronic pain # of Emergency department Answers: 1-2 visits in the last 6 months Social determinants Answers: Mental health diagnosis (anxiety, depression, pers onality disorders, etc.) Score: 17 Date Signed: 07/29/2018 01:04 PM Electronically Signed By:Ann Ibrahim LCSW [facility] CM Assessment Living Arrangements What is your living Answers: Alone arrangement? Who do you live with? Type Of Residence What kind of residence do Answers: Apartment you live in? Discharge Plan Comments Coordination Status Comments Notes: Patient is a 63yo female with hx of COPD on 8LO2 at baseline who comes from [facility] with complaints of sudden worsening of shortness of breath. Patient has been admitted for hypoxic respiratory failure, COPD exacerbation, elevated blood sugar, anemia, anxiety and fluid, electrolyte, and nutrition. No therapies ordered. Likely, the patient will discharge back to [facility]. CM available if d/c needs arise. Date Signed: 07/24/2018 01:07 PM Electronically Signed By:Ann Ibrahim LCSW [facility] CM Progress Note CM Note CM Note Notes: Met with patient yesterday to discuss her return to [facility]. Spoke with Malcom from [facility] who assured me they were assisting patient with finding another facility as she is not happy at [facility]. They have sent out several referrals though they have not gotten an accepting facility yet. Patient told me [facility] is dirty and jackie and it aggravates her COPD. Discussed with patient she will need to return to [facility] since it is her home for now and we are not a part of finding her a new home. Encouraged her to stay in touch with the [facility] social media senior associate who is helping search for a new facility.CM will follow. Date Signed: 07/29/2018 10:19 AM Electronically Signed By:Ann Ibrahim LCSW Case Management Discharge Plan Note Case Management Discharge Discharge Order Complete? Answers: Yes Patient to Obtain Answers: Other Notes: [facility] Medications Transportation Arranged Answers: Other Notes: [facility] Transport will Pick (Date 07/29/2018 12:00 AM & Time) Case Management Transport Answers: Yes Notes: [facility] arranged Form Complete Faxed Final Orders Answers: Yes Notes: [facility] Agency/Facility Transfer Answers: Yes Notes: [facility] Report Printed & Faxed to Receiving Agency Family Notified Answers: Yes Notes: daughter Discharge Comments Notes: Patient is discharging back to [facility] today. Malcom from admissions, [facility] arranged transport for patient with [facility] with picking machine operator between 2:30 and 3:00 PM. ([phone]) Discharge summaries were Allscripted to [facility]. Nurse to nurse arranged with patient's nurseYaneli. No further needs. Date Signed: 07/29/2018 01:03 PM Electronically Signed By:Ann Ibrahim LCSW Intervention Information Intervention Type:*Incorrect Registration Date of Service:07/23/2018 09:13 AM Patient Type:Observation Staff Member:Kayleen Houston Hours: Discipline: Severity: Comment: Intervention Type:*IM-Signed Date of Service:07/29/2018 10:38 AM Patient Type:Inpatient Staff Member:Josselin Harrison Hours: Discipline: Severity: Comment:
--- NOTE | 2018-07-29 18:42 | GDS ---
[f rep st] DISCHARGE SUMMARY DISCHARGE DIAGNOSES: 1. Acute on chronic respiratory failure. 2. Chronic obstructive pulmonary disease exacerbation. 3. Continuous narcotic dependency for chronic low back pain. 4. Anxiety. 5. Hyponatremia due to hypovolemia. HISTORY: The patient is a 63-year-old female with end-stage COPD. She was previously on hospice, bu t decided to discontinue hospice because her daughter got and she wanted to meet her grandch ild. Since stopping hospice, however, she has had recurrent hospitalizations for COPD exacerbation. Her baseline is 4 L at rest, 5 to 6 L with exertion. She was initially admitted to the ICU and requ ired BiPAP. She is now stabilized and back to her baseline oxygen requirement, although she continue s to have ongoing subjective shortness of breath despite maximal therapy. She is frustrated by this, although this is likely nearing her current baseline. I will discharge her on a prolonged steroid t aper. We will continue her Spiriva and Asmanex, and she also requests [id number] albuterol nebuliz ers with q.2 h. as needed at [facility]. We will also start her on a long-acting beta agonist, an d Serevent is ordered at discharge. This really is maximal therapy, and hopefully it can keep her ou t of the hospital. There is also concern for secondary gain issues. She hates living at [facility] and has put in a request to change to an alternative facility, and was clearly very motivated to do whatever it took t o stay out of [facility] as long as possible and in the hospital. Also during this hospitalizatio n, she was found to have a fentanyl patch on her body that was not prescribed by us. She continues t o complain of ongoing back pain, asking for escalating narcotic doses, although we did not change her chronic medications. She is on extensive narcotics at baseline. She often refuses to let her oxyge n be turned down to 4 L and likes to sit on 8 to 9 L of oxygen with her saturations running 100%. Sh carl thought this helped her shortness of breath. I had Palliative Care see her in consultation. She w as agreeable to enrolling into Palliative Care as an outpatient. When she discontinued hospice, she also went back to a full COR. Perhaps at least a DNR could be considered. We will also try to reduc e the number of bounce-back admissions. DISCHARGE MEDICATIONS: Please see computerized record for full detailed list. New medications: 1. Prednisone 40 mg p.o. daily, with a slow taper by 10 mg every 3 days until off. 2. Albuterol nebulizers, increased to every 4 hours, as well as every 2 hours as needed. 3. Long-acting beta agonist, Serevent 1 puff twice daily added, and, if this is effective, could wea n the frequency of albuterol nebulizers down. ADDITIONAL DISCHARGE INSTRUCTIONS: 1. Outpatient palliative care. 2. PT and OT. 3. Continue to work with Braxtonkatya Skinner to find alternative facility for long-term care. TIME SPENT ON DISCHARGE: Greater than 30 minutes' time was spent arranging this discharge. The miranda ent was seen and examined by me on the day of discharge. /[id number]/MODL
== END 2018-07-29 14:46 | DRG 189 ==
LOC: EDUNIT# → OBSVTOIN 06:52 → F2N 08:05 → F3N 07-24 20:33
PROVIDERS: ADMIT Family Medicine; ATTEND Family Medicine
DX: J96.20 Acute and chronic respiratory failure, unspecified whether with hypoxia or hypercapnia (principal); J44.1 Chronic obstructive pulmonary disease with (acute) exacerbation; F11.20 Opioid dependence, uncomplicated; E87.1 Hypo-osmolality and hyponatremia; G89.29 Other chronic pain; M54.5 Low back pain; F41.9 Anxiety disorder, unspecified; E86.1 Hypovolemia; Z87.891 Personal history of nicotine dependence; Z99.81 Dependence on supplemental oxygen
CPT/HCPCS: 97116-GP; 97161-GP; 97165-GO; 97530-GP; 97535-GO; J1650; J2930; J7512; J7613; J7626

== ENCOUNTER 2018-07-31 06:13 | Inpatient (IN) | payer OTHER, MEDICAID ==
[2018-07-31] MEDS ORDERED: NS 1,000 ML IV ONE (06:37)
[2018-07-31] MEDS ORDERED: IPRATROPIUM/ALBUTEROL 3 ML DEYVIAL IH ONE ×2 (06:39→07:50)
[2018-07-31] MEDS ORDERED: ACETAMINOPHEN 500 MG TAB PO ONE (06:42)
--- NOTE | 2018-07-31 06:42 | EDPHY ---
H & P Time Seen by Provider: 07/31/18 06:43 HPI/ROS: HPI CHIEF COMPLAINT: Shortness of breath. HISTORY OF PRESENT ILLNESS: This is a 63-year-old female she presents emergency room in mild respiratory distress by EMS from [facility]. Germaine 8 L nasal cannula at baseline. She has a history of end-stage COPD. She arrives to the emergency room complaining of worsening shortness of breath and wheezing. She arrives in noted to be tachycardic in the 120s. Oxygen saturations 90% on 8 L. she denies any chest pain. Somewhat of a poor historian. Recent hospitalization to07/23 - 07/29 Past Medical History: End-stage COPD, on 8 L nasal cannula baseline. Cognitive deficit, hyponatremia, anxiety, chronic back pain Past Surgical History: No recent surgery Social History: Resides at [facility]. Denies drugs. Denies alcohol. Family History: Noncontributory ROS REVIEW OF SYSTEMS: Limited due to clinical state mental state. Exam Constitutional moderate respiratory distress, elderly, triage nursing summary reviewed, vital signs reviewed, awake/alert. Tachycardic, hypoxic 90%. Temperature 39 degrees. Eyes normal conjunctivae and sclera, EOMI, PERRLA. HENT normal inspection, atraumatic, moist mucus membranes, no epistaxis, neck supple/ no meningismus, no raccoon eyes. Respiratory mild tachypnea, wheezing throughout all lung ching, crackles left lung field. Cardiovascular tachycardia, regular rhythm, no murmur, no edema, distal pulses normal. Gastrointestinal soft, non-tender, no rebound, no guarding, normal bowel sounds, no distension, no pulsatile mass. Genitourinary no CVA tenderness. Musculoskeletal no midline vertebral tenderness, full range of motion, no calf swelling, no tenderness of extremities, no meningismus, good pulses, neurovascularly intact. Skin pink, warm, & dry, no rash, skin atraumatic. Neurologic awake, alert and oriented x 3, AAOx3, moves all 4 extremities equally, motor intact, sensory intact, CN II-XII intact, normal cerebellar, normal vision, normal speech. Psychiatric normal mood/affect. Heme/Lymph/Immune no lymphadenopathy. Differential Diagnosis: Differential diagnosis includes but is not limited to: COPD exacerbation, ACS, atypical chest pain, pneumothorax, pneumonia, pulmonary embolism, aortic dissection, congestive heart failure, tumor, musculoskeletal pain, esophageal pain, GERD, peptic ulcer disease, pancreatitis Medical Decision Making: Plan for this patient IV establishment IV fluid bolus , IV Levaquin, blood cultures, lactic acid, respiratory panel, chest x-ray, DuoNeb breathing treatment, IV Solu-Medrol, chest x-ray rule pneumonia basic blood work. Re-evaluate. Re-evaluation: Chest x-ray: One view reviewed by me. This appears long inflated lung ching. COPD. Right lower lobe infiltrate Plan for this patient she is doing much better after DuoNeb breathing treatment. She is on 8 L nasal cannula this time. Critical Care: Total Critical Care Time Spent Managing this Patient: 40 Minutes. This time was spent Exclusively with this patient. This Care was exclusive of procedures. The Organ System/life at risk was COPD This Patient was in Critical Condition because COPD exacerbation 0712: Plan for this patient admit to the hospital service for COPD exacerbation acute febrile illness, dehydration. Blood cultures been ordered. Lactic acid less than 2. Tylenol for fever. IV Levaquin. Admit to hospitalist service for COPD exacerbation, fever pneumonia. EKG interpretation by me on record in [facility] system. Impression time of EKG 0722 sinus tachycardia rate of 119, T-wave abnormalities V1 V2 V3. No ST elevation no ST depression. 0749: I Spoke with the hospitalist service, they agree to admit the patient. Patient admitted for COPD exacerbation to step-down unit Dr. Horne to admit. Source: Patient, EMS - Medical/Surgical History Hx Asthma: No Hx Chronic Respiratory Disease: Yes Hx Diabetes: No Hx Cardiac Disease: No Hx Renal Disease: No Hx Cirrhosis: No Hx Alcoholism: No Hx HIV/AIDS: No Hx Splenectomy or Spleen Trauma: No Other PMH: end stage emphysema, COPD, chronic back pain, anxiety, generalized muscle weakness, cognitive communication deficit. - Social History Smoking Status: Former smoker Constitutional: Initial Vital Signs Temperature (C) 39 C H 07/31/18 06:15 Heart Rate 119 H 07/31/18 06:15 Respiratory Rate 19 07/31/18 06:15 Blood Pressure 135/102 H 07/31/18 06:15 O2 Sat (%) 93 07/31/18 06:15 O2 Delivery Mode Nasal Cannula O2 (L/minute) 3 Allergies/Adverse Reactions: Penicillins Allergy (Verified 07/23/18 04:21) Home Medications: Medication Instructions Recorded Acetaminophen [Tylenol ES 500 mg 500 mg PO Q8HRS PRN 07/02/18 (*)] Benzonatate 100 mg PO TID PRN 07/02/18 Diazepam [Valium 5 MG (*)] 5 mg PO TID 07/02/18 Docusate Sodium [Colace 100 MG (*)] 100 mg PO BID 07/02/18 Ergocalciferol [Vitamin D2 (*)] 50,000 unit PO Q30D 07/02/18 Herbals/Supplements -Info Only 1 ea PO DAILY 07/02/18 Hydrocortisone 1% [Hydrocortisone 1 sj TP Q4H PRN 07/02/18 1% cream (*)] Loratadine [Claritin] 10 mg PO DAILY PRN 07/02/18 Polyethylene Glycol 3350 [Miralax 17 gm PO DAILY PRN 07/02/18 17 gm (*)] diphenhydrAMINE [Benadryl 25 MG 25 mg PO Q4H PRN 07/02/18 (*)] fentaNYL [Duragesic 50 MCG Patch 50 mcg TD Q72H 07/02/18 (*)] morphINE SR [MS Contin/Oramorph SR 30 mg PO BID@,07/02/18 30 mg (*)] morphINE [Roxanol 10 mg/0.5 ml 0.75 ml PO Q4H PRN 07/02/18 oral soln (*)] Acetaminophen [Tylenol ES 500 mg 500 mg PO BID 07/23/18 (*)] Mometasone 220Mcg Inhaler [Asmanex 2 puffs IH BID 07/23/18 Inh (*)] Ondansetron HCl [Zofran] 4 mg PO Q6HRS PRN 07/23/18 Tiotropium Inhaler [Spiriva 18 mcg IH DAILY 07/23/18 Handihaler] Albuterol [Proventil Neb] 3 ml IH Q2HRS PRN #30 deyvial 07/29/18 Albuterol [Proventil Neb] 3 ml IH Q4 #30 deyvial 07/29/18 Salmeterol Diskus [Serevent Diskus 1 inh IH BID #1 mdi 07/29/18 (*)] predniSONE 40 mg PO DAILY #20 tablet 07/29/18 Medical Decision Making - Data Points Laboratory Results: Laboratory Results 07/31/18 06:34 07/31/18 06:34 Microbiology Results: MICROBIOLOGY 07/31/18 06:34 Blood Blood Culture - Preliminary 07/31/18 06:34 Blood Blood Culture - Preliminary Medications Given: Acetaminophen (Tylenol) 500 mg PO BID [facility] Stop: 01/27/19 20:59 Last Admin: 08/02/18 20:01 Dose: 500 mg Acetaminophen (Tylenol) 500 mg PO Q8HRS PRN PRN Reason: Pain, Mild Stop: 01/27/19 12:20 Last Admin: 08/02/18 10:53 Dose: 500 mg Albuterol (Proventil Neb) 3 ml IH Q4 [facility] Stop: 01/27/19 13:59 Last Admin: 08/02/18 21:22 Dose: 3 ml Aspirin (Aspirin) 81 mg PO DAILY [facility] Stop: 01/27/19 12:59 Last Admin: 08/02/18 09:05 Dose: 81 mg Benzonatate (Tessalon Pearles) 100 mg PO QID PRN PRN Reason: Cough, Moderate Stop: 01/27/19 12:20 Last Admin: 08/02/18 20:02 Dose: 100 mg Cetirizine HCl (Zyrtec) 10 mg PO DAILY PRN PRN Reason: ALLERGIES Stop: 01/28/19 08:59 Last Admin: 08/01/18 08:47 Dose: 10 mg Diazepam (Valium) 2 mg PO TID PRN PRN Reason: Anxiety Stop: 01/27/19 13:56 Last Admin: 08/02/18 20:01 Dose: 2 mg Diphenhydramine HCl (Benadryl) 25 mg PO Q4H PRN PRN Reason: pruritis Stop: 01/27/19 12:20 Last Admin: 08/02/18 20:01 Dose: 25 mg Docusate Sodium (Colace) 100 mg PO BID [facility] Stop: 01/27/19 20:59 Last Admin: 08/02/18 20:02 Dose: 100 mg Doxycycline Hyclate (Doxycycline Hyclate) 100 mg PO BID ALETA PRN Reason: Protocol Stop: 08/06/18 21:30 Last Admin: 08/02/18 20:01 Dose: 100 mg Enoxaparin Sodium (Lovenox) 40 mg SC DAILY [facility] Stop: 01/28/19 08:59 Last Admin: 08/02/18 08:16 Dose: 40 mg Fentanyl (Duragesic) 50 mcg TD Q72H [facility] Stop: 08/11/18 16:29 Last Admin: 08/01/18 18:38 Dose: 50 mcg Mometasone Furoate (Asmanex) 2 puffs IH BID [facility] Stop: 01/27/19 20:59 Last Admin: 08/02/18 21:22 Dose: 2 puffs Morphine Sulfate (Roxanol Oral Solution) 15 mg PO Q4H PRN PRN Reason: Pain, Moderate Stop: 08/10/18 12:20 Last Admin: 08/02/18 20:00 Dose: 15 mg Morphine Sulfate (Ms Contin/Oramorph Sr) 30 mg PO BID@ [facility] Stop: 08/10/18 12:20 Last Admin: 08/02/18 18:32 Dose: 30 mg Nortriptyline HCl (Pamelor) 50 mg PO HS [facility] Stop: 01/27/19 21:44 Last Admin: 08/02/18 20:01 Dose: 50 mg Ondansetron HCl (Zofran Odt) 4 mg PO Q6 PRN PRN Reason: Nausea/Vomiting, Use 1st Stop: 01/27/19 12:32 Last Admin: 08/02/18 03:54 Dose: 4 mg Salmeterol Xinafoate (Serevent Diskus) 1 inh IH BID [facility] Stop: 01/27/19 12:29 Last Admin: 08/02/18 21:23 Dose: 1 puffs Tiotropium Pegram (Spiriva Handihaler) 18 mcg IH DAILY [facility] Stop: 01/27/19 12:29 Last Admin: 08/02/18 09:06 Dose: 1 puffs Discontinued Medications Acetaminophen (Tylenol) 1,000 mg PO EDNOW ONE Stop: 07/31/18 06:43 Last Admin: 07/31/18 06:46 Dose: 1,000 mg Albuterol/Ipratropium (Duoneb) 3 ml IH EDNOW ONE Stop: 07/31/18 06:40 Last Admin: 07/31/18 06:46 Dose: 3 ml Albuterol/Ipratropium (Duoneb) 3 ml IH EDNOW ONE Stop: 07/31/18 07:51 Last Admin: 07/31/18 07:58 Dose: 3 ml Benzonatate (Tessalon Pearles) 100 mg PO TID PRN PRN Reason: Cough, Moderate Stop: 01/27/19 12:20 Last Admin: 08/02/18 10:53 Dose: 100 mg Fentanyl (Duragesic) 50 mcg TD Q72H ALETA Stop: 08/10/18 12:29 Last Admin: 07/31/18 14:07 Dose: Not Given Fentanyl (Duragesic) 50 mcg TD Q72H ALETA Stop: 08/11/18 14:14 Last Admin: 08/01/18 13:00 Dose: 50 mcg Sodium Chloride (Ns) 1,000 mls @ 0 mls/hr IV EDNOW ONE; Wide Open PRN Reason: Protocol Stop: 07/31/18 06:38 Last Admin: 07/31/18 06:47 Dose: 1,000 mls Levofloxacin/Dextrose (Levaquin 750 Mg (Premix)) 150 mls @ 100 mls/hr IV EDNOW ONE PRN Reason: Protocol Stop: 07/31/18 08:11 Last Admin: 07/31/18 06:47 Dose: 150 mls Sodium Chloride (Ns) 1,000 mls @ 125 mls/hr IV CONT ALETA Stop: 07/31/18 20:44 Last Admin: 07/31/18 13:12 Dose: 1,000 mls Doxycycline Hyclate 100 mg/ (Sodium Chloride) 260 mls @ 260 mls/hr IV Q12HRS ALETA PRN Reason: Protocol Stop: 08/30/18 12:59 Last Admin: 08/01/18 09:38 Dose: 260 mls Cefepime HCl 2 gm/ Sodium (Chloride) 100 mls @ 200 mls/hr IV Q8 ALETA Stop: 08/30/18 13:59 Last Admin: 07/31/18 14:12 Dose: Not Given Cefepime HCl 2 gm/ Sodium (Chloride) 100 mls @ 200 mls/hr IV Q8HRS ALETA Stop: 08/30/18 14:14 Last Admin: 08/01/18 13:00 Dose: 100 mls Nortriptyline HCl (Pamelor) 25 mg PO HS [facility] Stop: 01/27/19 21:44 Last Admin: 08/01/18 21:18 Dose: 25 mg Prednisone (Prednisone) 40 mg PO DAILY [facility] Stop: 01/27/19 12:44 Last Admin: 08/01/18 08:47 Dose: 40 mg Prednisone (Prednisone) 30 mg PO DAILY [facility] Stop: 01/29/19 08:59 Last Admin: 08/02/18 08:12 Dose: 30 mg Sertraline HCl (Zoloft) 50 mg PO DAILY [facility] Stop: 01/27/19 13:59 Last Admin: 07/31/18 14:34 Dose: Not Given Point of Care Test Results: Chemistry 07/31/18 06:56 POC Troponin I 0.00 ng/mL ng/mL (0.00-0.08) Departure - Departure [facility] Clinical Impression: COPD (chronic obstructive pulmonary disease) Qualifiers: COPD type: unspecified COPD Qualified Code(s): J44.9 - Chronic obstructive pulmonary disease, unspecified Fever Qualifiers: Fever type: unspecified Qualified Code(s): R50.9 - Fever, unspecified Pneumonia Qualifiers: Pneumonia type: due to unspecified organism Laterality: right Lung location: lower lobe of lung Qualified Code(s): J18.1 - Lobar pneumonia, unspecified organism Condition: Serious
[2018-07-31 06:50] LABS: PLATELET COUNT 167 10^3/uL (150-400)
[2018-07-31 07:19] LABS: INR 0.96 (0.83-1.16)
[2018-07-31] MEDS ORDERED: IPRATROPIUM/ALBUTEROL 3 ML DEYVIAL ONE (07:50)
[2018-07-31] MEDS ORDERED: IOHEXOL 350mgI/ML (OMNIPAQUE) 150 ML BTL IV ONE (09:36)
[2018-07-31] MEDS ORDERED: ALBUTEROL 3 ML DEYVIAL IH PRN (12:21)
[2018-07-31] MEDS ORDERED: POLYETHYLENE GLYCOL 3350 17 GM PKT PO PRN (12:21)
[2018-07-31] MEDS ORDERED: HYDROCORTISONE 1% CREAM TP PRN (12:21)
[2018-07-31] MEDS ORDERED: fentaNYL 50 MCG PATCH TD SCH (12:30)
[2018-07-31] MEDS: morphINE SR 30 MG TAB PO SCH ×2 (12:37→20:06)
[2018-07-31] MEDS ORDERED: NS 1,000 ML IV SCH (12:45)
[2018-07-31] MEDS: SALMETEROL DISKUS MDI IH SCH ×2 (12:51→20:18)
[2018-07-31] MEDS: TIOTROPIUM INHALER 18 MCG/DOSE 5 DOSE/MDI IH SCH (12:51)
[2018-07-31] MEDS: morphINE 10 MG/0.5 ML UDSYR PO PRN ×3 (12:56→23:43)
[2018-07-31] MEDS: ALBUTEROL 3 ML DEYVIAL IH SCH ×3 (12:58→20:18)
[2018-07-31] MEDS: ASPIRIN 81 MG CHEWABLE TAB PO SCH (13:07)
[2018-07-31] MEDS: DOXYCYCLINE INJ 100 MG in NS 250 ML IV SCH ×2 (13:13→20:05)
--- NOTE | 2018-07-31 13:28 | PDCONSULT ---
Project Production Engineer Note: ASSESSMENT 63 yo F with severe COPD admitted with AECOPD and RLL pneumonia and undertreated anxiety # AECOPD # severe COPD. no PFTs in our system or in [facility]. Patient does not know whether she has a speech language specialist. She is on ICS/LAMA/LABA however all inhalers are monotherapy and non are combination (odd). # RLL pneumonia with RF for MDR given recurrent hospitalizations # chronic hypoxemic resp failure. Feels better with 8L/min but only requiring 4L /min while here. I suspect she uses more due to breathlessness and anxiety as opposed to true hypoxemic resp failure # dyspnea # anxiety. on Valium but no SSRI # chronic back pain # chronic hypercarbic resp failure. multiple BMP with elevated bicarb and abg with COPD retention. Meets criteria for home NIPPV to decrease rates of reintubation # hyponatremia. 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 However , given low procalcitonin suggest weaning down # continue inhalers (suggest modifying as OP) # RT to do inhaler teaching # start zoloft 50 mg daily for anxiety, to be continued on discharge # bipap as tolerated while admitted # target sat 92-94% and avoid hyperoxia # trend Na # BIPAP while in ICU for hypercarbia # consider roflumilast or azithro at discharge to reduce rates of re exacerbations # needs close OP pulmonology follow up if she decides against hospice # Feeding - reg diet # Analgesia APAP, morphine (also for dyspnea) # Sedation propofol # Thromboprophylaxis - SQ hep # Head of bed elevated # Ulcer prophylaxis - NA # Glucose SSI # Skin no skin breakdown # Delirium - delirium precautions ABX cefepime, doxy 07/31/18- CX Data IMAGING Personally reviewed interpreted radiographic images well as formal radiology reads. 07/31/2018 CTA chest- no PE. Right lower lobe bronchial wall thickening infiltrate with tree-in-bud opacifications. Severe paraseptal emphysema. CONSULT I was asked by Dr Horne of [facility] to evaluate this patient for COPD exacerbation in ICU care Chief complaint Shortness of breath CAREN Snyder is a very pleasant 63-year-old female who is brought in by ambulance from [facility] with severe dyspnea on exertion. She has a history of severe COPD , anxiety, chronic breathlessness and recurrent exacerbations for COPD. She is recent hospitalized COPD exacerbation and given prednisone in antibiotics. She does not have a speech language specialist in our system. PFT's are unavailable for review. She denies fevers, chills, nausea, vomiting, increased sputum production,and, leg swelling. In the emergency department she was febrile and tachypneic and was given a DuoNeb, steroids and Levaquin. She was previously on hospice now is off b/c daughter is Allergies Penicillin unclear reaction Meds Reviewed, Valium, mometasone, Serevent, Spiriva, morphine. No SSRI Past medical history Prior tobacco dependence, severe COPD no PFTs in our system to quantitate. Anxiety, chronic back pain, chronic hypoxemic respiratory failure Family history No family history of severe recurrent COPD exacerbation Social history Extensive smoking history. Quit currently residing in [facility] Review of system A comprehensive 10 point review of systems was obtained is negative except as per HPI Physical exam afeb, pulse 88, BP 118/78, resp 20 98% on 4L/min GEN: NAD, up in chair, interactive NEURO: A&Ox3, CN 2-12 GI HEENT: PERRL, EOMI, MMM, OP clear NECK: supple, trachea midline CHEST normal shape, no pes excavatum CVS: rrr no m/r/g PULM: CTA B, no wheezes/rales/rhonchi ABD: soft, NT, ND, NABS EXT: no swelling, no cyanosis, full ROM SKIN: warm, dry, intact, no rash PSYCH CAM negative, appropriate affect LABS reviewed
--- NOTE | 2018-07-31 13:41 | GHP ---
[f rep st] HISTORY AND PHYSICAL DATE OF ADMISSION: 07/31/2018 The patient is a 63-year-old female with history of chronic pain with continuous narcotic dependence, COPD with chronic hypoxemic respiratory failure, and a couple of recent admissions to this hospital, who presents with increased difficulty breathing. She was just discharged from the hospital 2 days ago. During that time, there was some question of secondary gain of wishing to stay out of [facility], which is potentially understandable. She notes a cough without productive sputum. She is not wheezing. She is currently a nonsmoker. Bull henry is currently on a steroid taper. She has not had productive sputum. When I speak with her, she did not receive her morning pain medicine. She is mostly in excruciating pain and this is limiting the ability of productive conversation going forward. She previously had been on hospice care, but she has a daughter who is and she wishes to gabriela t her grandchild, so she rescinded hospice and elected to become full code again. REVIEW OF SYSTEMS: Complete 10-point review of systems conducted, negative except as noted in the HP I. PAST MEDICAL HISTORY: COPD with somewhere between 4 and 8 L chronic oxygen requirement, anxiety, chr onic back pain, chronic narcotic use. PAST SURGICAL HISTORY: She has a history of hysterectomy and spine surgery. FAMILY HISTORY: Parents are . SOCIAL HISTORY: She is currently living at [facility]. Quit tobacco months ago. Does not drink or use drugs. Currently full code. ALLERGIES: Penicillins. HOME MEDICATIONS: Prednisone 40 which is part of a taper, Tylenol, albuterol, Tessalon Perles, diaze ned, Benadryl, docusate, vitamin D, fentanyl patch 50 mcg q.72, hydrocortisone cream, loratadine, mom etasone inhaler, Roxanol 0.75 p.o. q.4 hours, as well as morphine, MS Contin 30 twice daily, ondanset shelly, MiraLAX, Serevent, tiotropium. PHYSICAL EXAM: VITAL SIGNS: Temp 39, now 37.9, blood pressure 135/102, pulse 119, now 109, breathin g 19 times a minute, 92% on 4 L, 100% on 10 L. GENERAL: No acute distress. HEENT: Sclerae anicter ic. Oropharynx clear. Mucous membranes moist. NECK: Supple. No lymphadenopathy or JVD. LUNGS: Lungs show decreased breath sounds throughout with reduced air movement, but without wheeze. She has crackles at the right base. HEART: S1, S2. Tachycardic. ABDOMEN: Soft, nontender, nondistended. LOWER EXTREMITIES: No edema. Calves nontender. SKIN: Without rash. NEUROLOGIC: Neurologic exa m is nonfocal. LABS: White count is 9.5, hematocrit is 40.6, platelets are 167,000, coags are normal. ABG is 7.49, pCO2 of 43, which is lower than her baseline, PO2 of 141, and a serum bicarb of 33. This is consist ent with a chronic respiratory acidosis that is improved with renal compensation. Sodium 127, potassium 4.3, chloride 83, bicarb 35, which is about her baseline. BUN 11, creatinine 0 .6, glucose 110, magnesium is 1.4. She was previously negative for influenza. Chest x-ray shows pos sible right lower lobe infiltrate. CTA of the chest images reviewed and interpreted by me show no pu lmonary embolism, severe centrilobular emphysema and right lower lobe pneumonia, as well as some pulm onary nodules. The EKG shows sinus tach at 119 with normal axis and intervals. There are some T-wave inversions in V2, V3, V4. Compared with 1 about a month ago, these EKG changes are new. I discussed the case with Dr. Gustavo Hebert, as well as Dr. Misbah Merino. 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 1. Right lower lobe pneumonia. Will treat as pneumonia with cefepime and doxycycline. T his is probably contributing to increased work of breathing. 2. Chronic obstructive pulmonary disease. I believe the patient is at baseline. We will continue h er prednisone 40, as well as home medications. I do not believe she requires IV steroids at this poly e. 3. EKG changes. These can be seen with pulmonary embolism, which is not seen. We will cycle tropon ins. I will give her an aspirin x1. 4. Pulmonary nodules. I have not discussed this with her. It is reasonable to discuss with her at some point, although I feel that her life expectancy from her COPD is such that management of pulmona ry nodules is probably a secondary issue. That said, it is appropriate to discuss with her. 5. Plan of care. She had previously been on hospice and I think palliative care going forward is an appropriate thing for her. It is, of course, reasonable to want to remain alive to see the of a grandchild. The Palliative Care Service will see her, but she was a little bit unwilling to discu ss this with them today, given her untreated pain. 6. Metabolic acidosis. This is compensatory for chronic respiratory acidosis. 7. Chronic hypoxemic respiratory failure. I think her baseline is about 4-6 L. She prefers more, I think for a sense of comfort and anxiety. We will titrate oxygen to comfort. DISPOSITION: Inpatient status med/surg. /[id number]/MODL
[2018-07-31] MEDS ORDERED: SERTRALINE HCL 50 MG TAB PO SCH (14:00)
[2018-07-31] MEDS ORDERED: CEFEPIME HCL 1 GM in NS 50 ML IV SCH (14:00)
[2018-07-31] MEDS ORDERED: CEFEPIME HCL 2 GM in NS 100 ML IV SCH (14:00)
[2018-07-31] MEDS: predniSONE 20 MG TAB PO SCH (14:05)
[2018-07-31] MEDS: CEFEPIME HCL 2 GM in NS 100 ML IV SCH ×2 (14:16→21:40)
[2018-07-31] MEDS: ACETAMINOPHEN 500 MG TAB PO PRN ×2 (14:28→23:47)
--- NOTE | 2018-07-31 14:41 | PDMN ---
Medical Necessity Medical necessity: Pt meets IP criteria as of 07/31/2018 per and GENI M-282 ( Pneumonia); est los > 2 mn for ongoing tx and management of pneumonia in a PSI class IV patient with COPD and chronic respiratory failure; requiring IV ABX, serial labs, PT/OT and management of chronic conditions including chronic back pain, chronic narcotic use, and anxiety.
[2018-07-31] MEDS: ONDANSETRON DISINTEGRATING 4 MG TAB PO PRN (15:39)
[2018-07-31] MEDS ORDERED: DIAZEPAM 5 MG TAB PO SCH (16:00)
[2018-07-31] MEDS: ACETAMINOPHEN 500 MG TAB PO SCH (20:05)
[2018-07-31] MEDS: DOCUSATE SODIUM 100 MG CAP PO SCH ×2 (20:06→20:09)
[2018-07-31] MEDS: MOMETASONE 220MCG INHALER IH SCH (20:19)
[2018-07-31] MEDS: DIAZEPAM 2 MG TAB PO PRN (23:43)
[2018-07-31] MEDS: NORTRIPTYLINE HCL 25 MG CAP PO SCH (23:43)
[2018-08-01] MEDS: ALBUTEROL 3 ML DEYVIAL IH SCH ×6 (00:04→21:39)
[2018-08-01] MEDS: morphINE 10 MG/0.5 ML UDSYR PO PRN ×5 (04:26→21:18)
[2018-08-01] MEDS: DIAZEPAM 2 MG TAB PO PRN ×4 (04:27→22:28)
[2018-08-01] MEDS: CEFEPIME HCL 2 GM in NS 100 ML IV SCH ×2 (04:29→13:00)
[2018-08-01 05:23] LABS: PLATELET COUNT 149 10^3/uL (150-400)
[2018-08-01] MEDS: TIOTROPIUM INHALER 18 MCG/DOSE 5 DOSE/MDI IH SCH (05:48)
[2018-08-01] MEDS: SALMETEROL DISKUS MDI IH SCH ×2 (05:49→23:23)
[2018-08-01] MEDS: MOMETASONE 220MCG INHALER IH SCH ×2 (05:49→23:22)
[2018-08-01] MEDS: morphINE SR 30 MG TAB PO SCH ×2 (07:21→18:46)
--- NOTE | 2018-08-01 08:16 | PDINTPN ---
Heat Treating Operator Progress Note Assessment/Plan: ASSESSMENT 63 yo F with severe COPD admitted with AECOPD and RLL pneumonia due to adenovirus and undertreated anxiety # AECOPD. resp viral panel positive for adenovirus # severe COPD. no PFTs in our system or in [facility]. Patient does not know whether she has a threshing department supervisor. She is on ICS/LAMA/LABA however all inhalers are monotherapy and non are combination (odd). # RLL pneumonia with RF for MDR given recurrent hospitalizations # chronic hypoxemic resp failure. Feels better with 8L/min but only requiring 4L /min while here. I suspect she uses more due to breathlessness and anxiety as opposed to true hypoxemic resp failure # dyspnea # anxiety. on Valium but no SSRI # chronic back pain # chronic hypercarbic resp failure. multiple BMP with elevated bicarb and abg with COPD retention. Meets criteria for home NIPPV to decrease rates of reintubation # hyponatremia. 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 PLAN # decrease pred to 30 mg while hospitalized # continue doxy, may change to macrolide on discharge to prevent repeat exacerbations # continue inhalers (suggest modifying as OP) # RT to do inhaler teaching # continue nortriptyline on discharge for anxiety, insomnia and chronic pain # bipap as tolerated while admitted # target sat 92-94% and avoid hyperoxia # trend Na # BIPAP while in ICU for hypercarbia # consider roflumilast or azithro at discharge to reduce rates of re exacerbations # needs close OP pulmonology follow up if she decides against hospice # Feeding - reg diet # Analgesia APAP, morphine (also for dyspnea) # Sedation propofol # Thromboprophylaxis - SQ hep # Head of bed elevated # Ulcer prophylaxis - NA # Glucose SSI # Skin no skin breakdown # Delirium - delirium precautions ABX cefepime, 07/31/18-08/01/18 doxy 07/31-present CX Data resp viral pcr adenovirus IMAGING Personally reviewed interpreted radiographic images well as formal radiology reads. 07/31/2018 CTA chest- no PE. Right lower lobe bronchial wall thickening infiltrate with tree-in-bud opacifications. Severe paraseptal emphysema. Subjective: Start nortriptyline overnight. Tolerated well no excessive somnolence today. Possibly sleeping mildly better. Still with anxiety complaining of pain and asking for increased fentanyl patch dosing. Denies nausea, vomiting. Complains generalized malaise. No rash. Objective: Vital Signs Temp Pulse Resp BP Pulse Ox 37.2 C 87 14 109/61 98 08/01/18 04:00 08/01/18 05:45 08/01/18 05:45 08/01/18 04:00 08/01/18 05:45 Microbiology 08/01/18 00:01 Respiratory Panel (PCR) - Final Nasal, Sinus - Aspirate Adenovirus Laboratory Results 08/01/18 05:04 08/01/18 05:04 07/31/18 08/01/18 08/02/18 05:59 05:59 05:59 Intake Total 2627 Output Total 1310 Balance 1317 PT 13.0 SEC (12.0-15.0) 07/31/18 06:34 INR 0.96 (0.83-1.16) 07/31/18 06:34 Physical Exam - Physical Exam EENT: PERRL/EOMI, normal ENT inspection Neck: non-tender, full range of motion, supple Respiratory: prolonged expiration, other (Decreased breath sounds bilateral bases) Cardiac/Chest: normal peripheral pulses, regular rate, rhythm, No edema Abdomen: normal bowel sounds, non-tender Back: Normal inspection Skin: normal color, warm/dry Extremities: normal range of motion, non-tender Neuro/Psych: no motor/sensory deficits, alert (Anxious affect), oriented x 3 ICD10 Worksheet Patient Problems: Problems Problem Status Onset COPD (chronic obstructive pulmonary disease) Acute Fever Acute Pneumonia Acute Chronic obstructive pulmonary disease with acute exacerbation Acute
[2018-08-01] MEDS: ACETAMINOPHEN 500 MG TAB PO SCH ×2 (08:46→21:17)
[2018-08-01] MEDS: BENZONATATE 100 MG CAP PO PRN ×3 (08:47→22:31)
[2018-08-01] MEDS: predniSONE 20 MG TAB PO SCH (08:47)
[2018-08-01] MEDS: DOCUSATE SODIUM 100 MG CAP PO SCH ×2 (08:47→21:18)
[2018-08-01] MEDS: ASPIRIN 81 MG CHEWABLE TAB PO SCH (08:47)
[2018-08-01] MEDS ORDERED: CETIRIZINE 10 MG TAB PO PRN (09:00)
[2018-08-01] MEDS ORDERED: Herbals/Supplements -Info Only PO SCH (09:00)
[2018-08-01] MEDS: ONDANSETRON DISINTEGRATING 4 MG TAB PO PRN ×2 (09:38→20:45)
[2018-08-01] MEDS: ENOXAPARIN 40 MG/0.4 ML SYR SC SCH (09:38)
[2018-08-01] MEDS: DOXYCYCLINE INJ 100 MG in NS 250 ML IV SCH (09:38)
[2018-08-01] MEDS: diphenhydrAMINE 25 MG CAP PO PRN (13:00)
[2018-08-01] MEDS: ACETAMINOPHEN 500 MG TAB PO PRN (13:00)
[2018-08-01] MEDS ORDERED: fentaNYL 50 MCG PATCH TD SCH (14:15)
--- NOTE | 2018-08-01 16:25 | HOSPPROG ---
Hospitalist Progress Note Assessment/Plan: 63 yo F w severe copd, anxiety, adenovirus, rll pneumonia pneumonia: cefepime/doxy copd: continue home meds, pred at 40 may want to consolidate inhalers to combo meds pain: complains of pain, declines changing regimen fentanyl patch not ideal proph :lmwh code: full for now dispo: SDU Subjective: case d/w dr machuca. eliz Objective: Vital Signs Temp Pulse Resp BP Pulse Ox 36.3 C 96 18 125/58 H 98 08/01/18 16:00 08/01/18 16:00 08/01/18 16:00 08/01/18 16:00 08/01/18 16:00 Microbiology 08/01/18 00:01 Respiratory Panel (PCR) - Final Nasal, Sinus - Aspirate Adenovirus Laboratory Results 08/01/18 05:04 08/01/18 05:04 07/31/18 08/01/18 08/02/18 05:59 05:59 05:59 Intake Total 2627 120 Output Total 1310 600 Balance 1317 -480 PT 13.0 SEC (12.0-15.0) 07/31/18 06:34 INR 0.96 (0.83-1.16) 07/31/18 06:34 - Physical Exam Constitutional: no apparent distress, appears nourished Eyes: PERRL, anicteric sclera Ears, Nose, Mouth, Throat: moist mucous membranes, hearing normal Cardiovascular: regular rate and rhythym, no murmur, rub, or gallop Respiratory: no respiratory distress, no rales or rhonchi Gastrointestinal: normoactive bowel sounds, soft, non-tender abdomen Genitourinary: no bladder fullness, No ahmadi in urethra Skin: warm, normal color Musculoskeletal: full muscle strength, no muscle tenderness Neurologic: AAOx3 Psychiatric: interacting appropriately Lymph, Heme, Immunologic: no cervical LAD ICD10 Worksheet Patient Problems: Problems Problem Status Onset COPD (chronic obstructive pulmonary disease) Acute Fever Acute Pneumonia Acute Chronic obstructive pulmonary disease with acute exacerbation Acute
--- NOTE | 2018-08-01 16:43 | ASMTCASEMG ---
Living Arrangements What is your living Answers: With Other (Not Family) arrangement? Who do you live with? Type Of Residence What kind of residence do Answers: Half-Way Facility you live in? Type of Residence Facility Name Notes: Patient lives at [facility]. She is not happy there but the social media marketing analyst and admissions people have been assisting her in looking for a new facility. Malcom from [facility] states they have not gotten an accepting facility yet. Discharge Plan Comments Coordination Status Comments Notes: Patient is a 63yo single female who was just discharged from the hospital on 07-29-2018 and returns with right lower lobe pneumonia. Patient has a hx of COPD with chronic hypoxemic respiratory failure, chronic pain with continuous narcotic dependence. OT/PT have been ordered. Patient resides at [facility] though she is not happy there. The social media marketing analyst has been trying to find her a new facility but they have not gotten any facilities willing to accept the patient to date. D/C plan will be back to [facility] even if she needs rehab, which they can provide. CM will follow. Date Signed: 08/01/2018 04:42 PM Electronically Signed By:Ann Ibrahim LCSW
[2018-08-01] MEDS: fentaNYL 50 MCG PATCH TD SCH (18:38)
[2018-08-01] MEDS: DOXYCYCLINE HYCLATE 100 MG CAP/TAB PO SCH (21:18)
[2018-08-01] MEDS: NORTRIPTYLINE HCL 25 MG CAP PO SCH (21:18)
[2018-08-02] MEDS: ALBUTEROL 3 ML DEYVIAL IH SCH ×6 (00:48→21:22)
[2018-08-02] MEDS: morphINE 10 MG/0.5 ML UDSYR PO PRN ×5 (02:54→20:00)
[2018-08-02] MEDS: ONDANSETRON DISINTEGRATING 4 MG TAB PO PRN (03:54)
[2018-08-02] MEDS: BENZONATATE 100 MG CAP PO PRN ×4 (03:54→20:02)
--- NOTE | 2018-08-02 07:33 | CPEKG ---
Test Reason : OPEN Blood Pressure : / mmHG Vent. Rate : 119 BPM Atrial Rate : 119 BPM P-R Int : 125 ms QRS Dur : 074 ms QT Int : 352 ms P-R-T Axes : 081 034 000 degrees QTc Int : 496 ms Sinus tachycardia Borderline T wave abnormalities Borderline prolonged QT interval Confirmed by Gustavo Hebert ([id number]) on 08/02/2018 7:33:23 AM Referred By: Gustavo Hebert Confirmed By:Gustavo Hebert
[2018-08-02] MEDS: morphINE SR 30 MG TAB PO SCH ×2 (07:56→18:32)
[2018-08-02] MEDS: DOXYCYCLINE HYCLATE 100 MG CAP/TAB PO SCH ×2 (08:11→20:01)
[2018-08-02] MEDS: ACETAMINOPHEN 500 MG TAB PO SCH ×2 (08:11→20:01)
[2018-08-02] MEDS: DOCUSATE SODIUM 100 MG CAP PO SCH ×3 (08:11→20:02)
[2018-08-02] MEDS: DIAZEPAM 2 MG TAB PO PRN ×3 (08:11→20:01)
[2018-08-02] MEDS: ENOXAPARIN 40 MG/0.4 ML SYR SC SCH (08:16)
[2018-08-02] MEDS ORDERED: predniSONE 20 MG TAB PO SCH (09:00)
[2018-08-02] MEDS: ASPIRIN 81 MG CHEWABLE TAB PO SCH (09:05)
[2018-08-02] MEDS: MOMETASONE 220MCG INHALER IH SCH ×2 (09:06→21:22)
[2018-08-02] MEDS: SALMETEROL DISKUS MDI IH SCH ×2 (09:06→21:23)
[2018-08-02] MEDS: TIOTROPIUM INHALER 18 MCG/DOSE 5 DOSE/MDI IH SCH (09:06)
[2018-08-02] MEDS: ACETAMINOPHEN 500 MG TAB PO PRN (10:53)
--- NOTE | 2018-08-02 12:35 | PDINTPN ---
Library Serials Assistant Progress Note Assessment/Plan: ASSESSMENT 63 yo F with severe COPD admitted with AECOPD and RLL pneumonia due to adenovirus and undertreated anxiety # AECOPD. resp viral panel positive for adenovirus # severe COPD. no PFTs in our system or in [place]. Patient does not know whether she has a rides attendant. She is on ICS/LAMA/LABA however all inhalers are monotherapy and non are combination (odd). # RLL pneumonia with RF for MDR given recurrent hospitalizations # chronic hypoxemic resp failure. Feels better with 8L/min but only requiring 4L /min while here. I suspect she uses more due to breathlessness and anxiety as opposed to true hypoxemic resp failure # dyspnea # anxiety. on Valium but no SSRI # chronic back pain # chronic hypercarbic resp failure. multiple BMP with elevated bicarb and abg with COPD retention. Meets criteria for home NIPPV to decrease rates of reintubation # hyponatremia. 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 PLAN # decrease pred to 10 mg while hospitalized # continue doxy to complete 56-7 days total abx # continue inhalers (suggest modifying regimen as OP) # stop bipap # continue nortriptyline on discharge for anxiety, insomnia and chronic pain # DISCHARGE ON AZITHRO azithro 250 mg daily with refills as chronic therapy to reduce risk of recurrent COPD exacerbations # target sat 92-94% and avoid hyperoxia # fans for breathlessness # needs close OP pulmonology follow up if she decides against hospice # Feeding - reg diet # Analgesia APAP, morphine (also for dyspnea) # Sedation none # Thromboprophylaxis - SQ hep # Head of bed elevated # Ulcer prophylaxis - NA # Glucose SSI # Skin no skin breakdown # Delirium - delirium precautions ABX cefepime, 07/31/18-08/01/18 doxy 07/31-present CX Data resp viral pcr adenovirus IMAGING Personally reviewed interpreted radiographic images well as formal radiology reads. 07/31/2018 CTA chest- no PE. Right lower lobe bronchial wall thickening infiltrate with tree-in-bud opacifications. Severe paraseptal emphysema. Subjective: Slept well, still complained of pain anxiety, tolerating nortriptyline. Asking for BiPAP just for nebs for inhalers otherwise not significantly short of breath. Doing well on lower oxygen requirements. Fans for breathlessness. Denies fevers, chills, nausea, vomiting, shortness of breath Objective: Vital Signs Temp Pulse Resp BP Pulse Ox 36.6 C 113 H 16 92/65 L 95 08/02/18 10:54 08/02/18 10:54 08/02/18 10:54 08/02/18 10:54 08/02/18 10:54 Microbiology 08/01/18 00:01 Respiratory Panel (PCR) - Final Nasal, Sinus - Aspirate Adenovirus Laboratory Results 08/01/18 05:04 08/01/18 05:04 08/01/18 08/02/18 08/03/18 05:59 05:59 05:59 Intake Total 2627 2146 Output Total 1310 1550 Balance 1317 596 PT 13.0 SEC (12.0-15.0) 07/31/18 06:34 INR 0.96 (0.83-1.16) 07/31/18 06:34 Physical Exam - Physical Exam General Appearance: alert, anxiety EENT: PERRL/EOMI, normal ENT inspection, pharynx normal Neck: non-tender, full range of motion, supple Respiratory: chest non-tender, lungs clear, decreased breath sounds, No accessory muscle use Cardiac/Chest: normal peripheral pulses, regular rate, rhythm, No edema Abdomen: normal bowel sounds, non-tender, soft Rectal: deferred Skin: normal color, warm/dry, No cyanosis Extremities: normal range of motion, non-tender, normal inspection Neuro/Psych: no motor/sensory deficits, alert, oriented x 3 ICD10 Worksheet Patient Problems: Problems Problem Status Onset COPD (chronic obstructive pulmonary disease) Acute Fever Acute Pneumonia Acute Chronic obstructive pulmonary disease with acute exacerbation Acute
--- NOTE | 2018-08-02 15:23 | HOSPPROG ---
Hospitalist Progress Note Assessment/Plan: 63 yo F w severe copd, anxiety, adenovirus, rll pneumonia pneumonia: likely viral cefepime dc'd adenovirus copd: continue home meds, pred at 30 may want to consolidate inhalers to combo meds pain: complains of pain, declines changing regimen fentanyl patch not ideal proph :lmwh code: full for now dispo: inpt Subjective: case d/w dr machuca. working w pt Objective: Vital Signs Temp Pulse Resp BP Pulse Ox 36.6 C 92 20 92/65 L 93 08/02/18 10:54 08/02/18 14:13 08/02/18 14:13 08/02/18 10:54 08/02/18 14:13 Laboratory Results 08/01/18 05:04 08/01/18 05:04 08/01/18 08/02/18 08/03/18 05:59 05:59 05:59 Intake Total 2627 2146 Output Total 1310 1550 Balance 1317 596 PT 13.0 SEC (12.0-15.0) 07/31/18 06:34 INR 0.96 (0.83-1.16) 07/31/18 06:34 - Physical Exam Constitutional: no apparent distress, appears nourished Eyes: PERRL, anicteric sclera Ears, Nose, Mouth, Throat: moist mucous membranes, hearing normal Cardiovascular: regular rate and rhythym, no murmur, rub, or gallop Respiratory: no respiratory distress, other (improved) Gastrointestinal: normoactive bowel sounds, soft, non-tender abdomen Genitourinary: no bladder fullness, No ahmadi in urethra Skin: warm, normal color Musculoskeletal: full muscle strength Neurologic: AAOx3 ICD10 Worksheet Patient Problems: Problems Problem Status Onset COPD (chronic obstructive pulmonary disease) Acute Fever Acute Pneumonia Acute Chronic obstructive pulmonary disease with acute exacerbation Acute
[2018-08-02] MEDS: NORTRIPTYLINE HCL 25 MG CAP PO SCH (20:01)
[2018-08-02] MEDS: diphenhydrAMINE 25 MG CAP PO PRN (20:01)
[2018-08-03] MEDS: morphINE 10 MG/0.5 ML UDSYR PO PRN ×5 (01:06→21:34)
[2018-08-03] MEDS: ALBUTEROL 3 ML DEYVIAL IH SCH ×6 (01:28→20:24)
[2018-08-03] MEDS: BENZONATATE 100 MG CAP PO PRN ×4 (01:45→20:41)
[2018-08-03] MEDS: DIAZEPAM 2 MG TAB PO PRN ×3 (02:48→17:18)
[2018-08-03] MEDS: morphINE SR 30 MG TAB PO SCH ×2 (06:40→19:12)
[2018-08-03] MEDS: ACETAMINOPHEN 500 MG TAB PO SCH ×2 (07:17→20:41)
[2018-08-03] MEDS ORDERED: predniSONE 10 MG TAB PO SCH (09:00)
[2018-08-03] MEDS: TIOTROPIUM INHALER 18 MCG/DOSE 5 DOSE/MDI IH SCH (09:06)
[2018-08-03] MEDS: SALMETEROL DISKUS MDI IH SCH ×2 (09:06→20:24)
[2018-08-03] MEDS: MOMETASONE 220MCG INHALER IH SCH ×2 (09:06→20:25)
[2018-08-03] MEDS: DOCUSATE SODIUM 100 MG CAP PO SCH ×2 (09:34→20:41)
[2018-08-03] MEDS: ASPIRIN 81 MG CHEWABLE TAB PO SCH (09:34)
[2018-08-03] MEDS: DOXYCYCLINE HYCLATE 100 MG CAP/TAB PO SCH (09:34)
[2018-08-03] MEDS: ENOXAPARIN 40 MG/0.4 ML SYR SC SCH (09:37)
[2018-08-03] MEDS: ONDANSETRON DISINTEGRATING 4 MG TAB PO PRN ×2 (09:46→17:19)
--- NOTE | 2018-08-03 10:02 | HOSPPROG ---
Hospitalist Progress Note Assessment/Plan: 63 yo F w severe copd, anxiety, adenovirus, rll pneumonia pneumonia: adenovirus + received 24 hours cefepime (07/31-) and now febrile suspect bacterial superinfection, need to treat for nosocomial pathogens 1. restart cefepime 2. blood cx w next spike 3. bolus 500 cc hyponatremia: acute on chronic given fever, likley hypovolemic bolus, folow q6 copd: continue home meds, pred at 30 may want to consolidate inhalers to combo meds pain: complains of pain, declines changing regimen fentanyl patch not ideal proph :lmwh code: full for now dispo: inpt, icu 45 min crit care Subjective: febrile and tachycardic overnight. case d/w dr machuca Objective: Vital Signs Temp Pulse Resp BP Pulse Ox 39.7 C H 129 H 26 H 143/78 H 95 08/03/18 07:46 08/03/18 09:00 08/03/18 09:00 08/03/18 07:46 08/03/18 09:00 Laboratory Results 08/01/18 05:04 08/03/18 04:15 08/02/18 08/03/18 08/04/18 05:59 05:59 05:59 Intake Total 2146 800 Output Total 1550 300 Balance 596 500 PT 13.0 SEC (12.0-15.0) 07/31/18 06:34 INR 0.96 (0.83-1.16) 07/31/18 06:34 - Physical Exam Constitutional: no apparent distress Eyes: PERRL, anicteric sclera Ears, Nose, Mouth, Throat: moist mucous membranes, hearing normal Cardiovascular: no murmur, rub, or gallop, No tachycardia Respiratory: other (quiet lungs w decreased bs on R. no wheeze. not much different from last few days) Gastrointestinal: normoactive bowel sounds, soft, non-tender abdomen Genitourinary: no bladder fullness, No ahmadi in urethra Skin: warm, normal color Musculoskeletal: No full muscle strength Neurologic: AAOx3 Psychiatric: interacting appropriately ICD10 Worksheet Patient Problems: Problems Problem Status Onset COPD (chronic obstructive pulmonary disease) Acute Fever Acute Pneumonia Acute Chronic obstructive pulmonary disease with acute exacerbation Acute
--- NOTE | 2018-08-03 11:00 | PDINTPN ---
[employer] Progress Note Assessment/Plan: ASSESSMENT 63 yo F with severe COPD admitted with AECOPD and RLL pneumonia due to adenovirus and undertreated anxiety transferred back to ICU with worsening of resp symptoms # AECOPD. resp viral panel positive for adenovirus # RLL pneumonia with RF for MDR given recurrent hospitalizations. Cultures negative, but worsened off cefepime. # severe COPD. no PFTs in our system or in [facility] however CT this admission with severe paraseptal emphysema. Has not see a java technical architect in years. Was on hospice but now off due to daughter being . She is on ICS/LAMA/LABA however all inhalers are monotherapy and non are combination (odd). # acute on chronic hypoxemic resp failure. Feels better with 8L/min but only requires 2-4 as OP. on 10 L/min oxymask today # dyspnea # anxiety. on Valium but no SSRI as OP. # insomnia # chronic back pain # chronic hypercarbic resp failure. multiple BMP with elevated bicarb and abg with COPD retention. Currently compensated on abg but has previously met criteria for home NIPPV to decrease rates of readmission # hyponatremia. 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 PLAN # add back cefepime given clinical worsening # stop doxy, start azithro # start vanc, will d/c after 48-72 hrs if cx data negative # DISCHARGE ON AZITHRO azithro 250 mg daily with refills as chronic therapy to reduce risk of recurrent COPD exacerbations # continue inhalers (suggest modifying regimen as OP) # continue nortriptyline on discharge for anxiety, insomnia and chronic pain # target sat 92-94% and avoid hyperoxia # fans for breathlessness # check urine lytes and osm # NIPPV for dyspnea # needs close OP pulmonology follow up if she decides against hospice # Feeding - reg diet # Analgesia APAP, morphine fentanyl patch (outpatient regimen) # Sedation none # Thromboprophylaxis - SQ hep # Head of bed elevated # Ulcer prophylaxis - NA # Glucose SSI # Skin no skin breakdown # Delirium - delirium precautions ABX cefepime, 07/31/18-08/01/18, 08/03- azithro 08/03-present doxy 07/31-08/03 CX Data resp viral pcr adenovirus IMAGING Personally reviewed interpreted radiographic images well as formal radiology reads. 08/03/18 CXR with interval worsening of RLL pneumonia 07/31/2018 CTA chest- no PE. Right lower lobe bronchial wall thickening infiltrate with tree-in-bud opacifications. Severe paraseptal emphysema. Patient is critically ill with life threatening organ dysfunction given worsening of pna and sepsis in the setting of severe, end stage COPD requires complex medical decision making Total critical care time: 65 minutes which was spend evaluating patient, rounding, discussions with hospitalist and patient Subjective: Increasing tachypnea and fevers overnight. Transferred back to ICU briefly on NIPPV. Now feeling better this a.m. Still with shortness of breath, back pain. denies chest pain, leg swelling, rash Objective: Vital Signs Temp Pulse Resp BP Pulse Ox 39.7 C H 129 H 26 H 143/78 H 95 08/03/18 07:46 08/03/18 09:00 08/03/18 09:00 08/03/18 07:46 08/03/18 09:00 Laboratory Results 08/01/18 05:04 08/02/18 08/03/18 08/04/18 05:59 05:59 05:59 Intake Total 2146 800 Output Total 1550 300 Balance 596 500 PT 13.0 SEC (12.0-15.0) 07/31/18 06:34 INR 0.96 (0.83-1.16) 07/31/18 06:34 Physical Exam - Physical Exam General Appearance: alert EENT: PERRL/EOMI, normal ENT inspection Neck: non-tender, full range of motion Respiratory: chest non-tender, other (Decreased breath sounds bilaterally, no use of accessory muscles, no rales) Cardiac/Chest: normal peripheral pulses, regular rate, rhythm Abdomen: normal bowel sounds, non-tender, soft Skin: normal color, warm/dry, No cyanosis Extremities: normal range of motion, non-tender, normal inspection Neuro/Psych: no motor/sensory deficits, alert, oriented x 3 ICD10 Worksheet Patient Problems: Problems Problem Status Onset COPD (chronic obstructive pulmonary disease) Acute Fever Acute Pneumonia Acute Chronic obstructive pulmonary disease with acute exacerbation Acute
[2018-08-03] MEDS ORDERED: PROTOCOL POTASSIUM 1 DOSE MISC PRN (11:08)
[2018-08-03] MEDS ORDERED: NS 1,000 ML IV ONE (11:10)
[2018-08-03] MEDS: CEFEPIME HCL 1 GM in NS 50 ML IV SCH ×3 (11:28→21:01)
[2018-08-03] MEDS: VANCOMYCIN HCL/NORMAL SALINE 250 ML IV SCH (12:14)
[2018-08-03] MEDS: AZITHROMYCIN 250 MG TAB PO SCH (12:14)
[2018-08-03] MEDS ORDERED: CEFEPIME HCL 1 GM in NS 50 ML IV SCH (14:00)
[2018-08-03] MEDS ORDERED: POTASSIUM CL 10 MEQ TAB PO ONE (14:15)
[2018-08-03] MEDS ORDERED: POTASSIUM CITRATE 10 MEQ TAB PO SCH (14:15)
[2018-08-03] MEDS ORDERED: POTASSIUM Cl (KCl) 100 ML IV SCH (14:30)
[2018-08-03] MEDS ORDERED: NS 500 ML IV ONE ×2 (15:03→19:30)
--- NOTE | 2018-08-03 16:32 | PDCONSULT ---
Radio Rigger Note: Assessment/Plan: Hyponatremia: acute on chronic, looks like sodium generally runs 128-133, and now is down to 120. Most likely she has SIADH in relation to chronic and severe lung disease that is acutely worse in setting of pneumonia. Pt has since last labs received more NS. - Will continue to monitor sodium q6h. - Will check urine sodium, urine osm and serum osm. - Will check TSH and am cortisol. - Will place on 1200ml fluid restriction. - Will await next lab to determine further intervention. Hypokalemia: replaced earlier today, being monitored q6h for now. Urinary retention: pt has not had much UOP today despite IVFs given, Cr remains stable at 0.5. - Continue to monitor Cr. - Will order bladder scan. Thank you for the interesting consult. Nephrology will continue to follow, please call if you have any additional questions or concerns. H & P Stated Complaint: sob Time Seen by Provider: 07/31/18 06:43 HPI/ROS: HPI: Ms. Shelton is a 63 yo F with h/o advanced COPD, states she uses 8-10L O2 at baseline, although this may be higher than her actual baseline needs. She was recently hospitalized for COPD exacerbation and discharged on 07/29, came back on 07/31 with again dyspnea, having a COPD exacerbation along with pneumonia. She is noted to have low sodium during recent hospitalizations, Na mostly runs 128-133. Her sodium this time was 127 on presentation, went up to 130 on 08/01, and today was noted to be down to 120. She has received 1.5L NS today. She has not had very large fluid intake. Her Cr remains stable but despite IVFs given she has not urinated much today. She denies any NSAIDs. ROS: positive per HPI, rest of 10-point ROS negative - Personal History Current Tetanus/Diphtheria Vaccine: Yes Current Tetanus Diphtheria and Acellular Pertussis (TDAP): Yes - Medical/Surgical History Hx Asthma: No Hx Chronic Respiratory Disease: Yes Hx Diabetes: No Hx Cardiac Disease: No Hx Renal Disease: No Hx Cirrhosis: No Hx Alcoholism: No Hx HIV/AIDS: No Hx Splenectomy or Spleen Trauma: No Other PMH: end stage emphysema, COPD, chronic back pain, anxiety, generalized muscle weakness, cognitive communication deficit. - Family History Significant Family History: No pertinent family hx - Social History Smoking Status: Former smoker - Physical Exam Exam: General: alert and oriented, no acute distress Eyes: EOMI, PERRL OP: Clear, MMM Neck: supple, no thyromegaly CV: RRR, no edema BLE Resp: CTA bilat with coarse breath sounds and scattered wheezes, nonlabored respirations on 4L via oxymask Abd: Soft, NT/ND Neuro: CN II-XII grossly intact, no asterixis Psych: cooperative, appropriate mood and affect Skin: C/D/I, no rash Constitutional: Initial Vital Signs Temperature (C) 39 C H 07/31/18 06:15 Heart Rate 119 H 07/31/18 06:15 Respiratory Rate 19 07/31/18 06:15 Blood Pressure 135/102 H 07/31/18 06:15 O2 Sat (%) 93 07/31/18 06:15 O2 Delivery Mode Nasal Cannula O2 (L/minute) 3 Allergies/Adverse Reactions: Penicillins Allergy (Verified 07/23/18 04:21) Home Medications: Medication Instructions Recorded Acetaminophen [Tylenol ES 500 mg 500 mg PO Q8HRS PRN 07/02/18 (*)] Benzonatate 100 mg PO TID PRN 07/02/18 Diazepam [Valium 5 MG (*)] 5 mg PO TID 07/02/18 Docusate Sodium [Colace 100 MG (*)] 100 mg PO BID 07/02/18 Ergocalciferol [Vitamin D2 (*)] 50,000 unit PO Q30D 07/02/18 Herbals/Supplements -Info Only 1 ea PO DAILY 07/02/18 Hydrocortisone 1% [Hydrocortisone 1 sj TP Q4H PRN 07/02/18 1% cream (*)] Loratadine [Claritin] 10 mg PO DAILY PRN 07/02/18 Polyethylene Glycol 3350 [Miralax 17 gm PO DAILY PRN 07/02/18 17 gm (*)] diphenhydrAMINE [Benadryl 25 MG 25 mg PO Q4H PRN 07/02/18 (*)] fentaNYL [Duragesic 50 MCG Patch 50 mcg TD Q72H 07/02/18 (*)] morphINE SR [MS Contin/Oramorph SR 30 mg PO BID@07,19 07/02/18 30 mg (*)] morphINE [Roxanol 10 mg/0.5 ml 0.75 ml PO Q4H PRN 07/02/18 oral soln (*)] Acetaminophen [Tylenol ES 500 mg 500 mg PO BID 07/23/18 (*)] Mometasone 220Mcg Inhaler [Asmanex 2 puffs IH BID 07/23/18 Inh (*)] Ondansetron HCl [Zofran] 4 mg PO Q6HRS PRN 07/23/18 Tiotropium Inhaler [Spiriva 18 mcg IH DAILY 07/23/18 Handihaler] Albuterol [Proventil Neb] 3 ml IH Q2HRS PRN #30 deyvial 07/29/18 Albuterol [Proventil Neb] 3 ml IH Q4 #30 deyvial 07/29/18 Salmeterol Diskus [Serevent Diskus 1 inh IH BID #1 mdi 07/29/18 (*)] predniSONE 40 mg PO DAILY #20 tablet 07/29/18 Lab and Imaging 08/01/18 05:04 08/03/18 11:40 WBC 10.98 10^3/uL (3.80-9.50) H 08/01/18 05:04 RBC 3.65 10^6/uL (4.18-5.33) L 08/01/18 05:04 Hgb 11.1 g/dL (12.6-16.3) L 08/01/18 05:04 Hct 33.8 % (38.0-47.0) L 08/01/18 05:04 MCV 92.6 fL (81.5-99.8) 08/01/18 05:04 MCH 30.4 pg (27.9-34.1) 08/01/18 05:04 MCHC 32.8 g/dL (32.4-36.7) 08/01/18 05:04 RDW 13.3 % (11.5-15.2) 08/01/18 05:04 Plt Count 149 10^3/uL (150-400) L 08/01/18 05:04 MPV 10.2 fL (8.7-11.7) 08/01/18 05:04 Neut % (Auto) 89.2 % (39.3-74.2) H 08/01/18 05:04 Lymph % (Auto) 4.4 % (15.0-45.0) L 08/01/18 05:04 [place] % (Auto) 5.8 % (4.5-13.0) 08/01/18 05:04 Eos % (Auto) 0.0 % (0.6-7.6) L 08/01/18 05:04 Baso % (Auto) 0.1 % (0.3-1.7) L 08/01/18 05:04 Nucleat RBC Rel Count 0.0 % (0.0-0.2) 08/01/18 05:04 Absolute Neuts (auto) 9.79 10^3/uL (1.70-6.50) H 08/01/18 05:04 Absolute Lymphs (auto) 0.48 10^3/uL (1.00-3.00) L 08/01/18 05:04 Absolute Monos (auto) 0.64 10^3/uL (0.30-0.80) 08/01/18 05:04 Absolute Eos (auto) 0.00 10^3/uL (0.03-0.40) L 08/01/18 05:04 Absolute Basos (auto) 0.01 10^3/uL (0.02-0.10) L 08/01/18 05:04 Absolute Nucleated RBC 0.00 10^3/uL (0-0.01) 08/01/18 05:04 Immature Gran % 0.5 % (0.0-1.1) 08/01/18 05:04 Immature Gran # 0.05 10^3/uL (0.00-0.10) 08/01/18 05:04 RBC/WBC/PLT Morphology TNP 08/01/18 05:04 Platelet Estimate TNP 08/01/18 05:04 PT 13.0 SEC (12.0-15.0) 07/31/18 06:34 INR 0.96 (0.83-1.16) 07/31/18 06:34 APTT 26.7 SEC (23.0-38.0) 07/31/18 06:34 Puncture Site RIGHT RADIAL 07/31/18 06:55 Patient Temperature 37.0 DEGREES 07/31/18 06:55 pCO2 43 mmHg (34-38) H 07/31/18 06:55 pO2 141 mmHg (65-75) H 07/31/18 06:55 Total CO2 33 mEq/L (23-27) H 07/31/18 06:55 ABG pH 7.49 (7.35-7.45) H 07/31/18 06:55 ABG HCO3 32 mEq/L (22-26) H 07/31/18 06:55 ABG O2 Saturation 99 % (92-95) H 07/31/18 06:55 ABG Base Excess 8.0 mEq/L (-2.5-2.5) H 07/31/18 06:55 VBG Lactic Acid 1.1 mmol/L (0.7-2.1) 07/31/18 06:34 Sodium 120 mEq/L (135-145) L 08/03/18 11:40 Potassium 3.5 mEq/L (3.5-5.2) 08/03/18 11:40 Chloride 84 mEq/L (97-110) L 08/03/18 11:40 Carbon Dioxide 27 mEq/l (22-31) 08/03/18 11:40 Anion Gap 9 mEq/L (6-14) 08/03/18 11:40 BUN 15 mg/dL (7-23) 08/03/18 11:40 Creatinine 0.5 mg/dL (0.6-1.0) L 08/03/18 11:40 Estimated GFR > 60 08/03/18 11:40 Glucose 101 mg/dL (70-100) H 08/03/18 11:40 Calcium 7.4 mg/dL (8.5-10.4) L 08/03/18 11:40 Magnesium 1.4 mg/dL (1.6-2.3) L 07/31/18 06:34 POC Troponin I 0.00 ng/mL (0.00-0.08) 07/31/18 06:56 Troponin I < 0.012 ng/mL (0.000-0.034) 07/31/18 17:25 NT-Pro-B Natriuret Pep 45 pg/mL (0-125) 07/31/18 06:34
[2018-08-03] MEDS: NORTRIPTYLINE HCL 25 MG CAP PO SCH (20:41)
[2018-08-03] MEDS: ACETAMINOPHEN 500 MG TAB PO PRN (21:33)
[2018-08-03] MEDS ORDERED: IBUPROFEN 600 MG TAB PO ONE (21:55)
[2018-08-04] MEDS ORDERED: NS 500 ML IV ONE (00:30)
[2018-08-04] MEDS: VANCOMYCIN HCL/NORMAL SALINE 250 ML IV SCH ×2 (00:40→11:35)
[2018-08-04] MEDS: NOREPINEPHRINE BITARTRATE 4 MG in NS 500 ML IV SCH ×2 (01:17→21:34)
[2018-08-04] MEDS ORDERED: PROTOCOL POTASSIUM 1 DOSE MISC PRN ×2 (01:52→01:53)
[2018-08-04] MEDS ORDERED: POTASSIUM CL 10 MEQ TAB PO ONE ×4 (01:55→19:10)
[2018-08-04] MEDS ORDERED: POTASSIUM Cl (KCl) 100 ML IV SCH (02:00)
[2018-08-04] MEDS: ALBUTEROL 3 ML DEYVIAL IH SCH ×6 (02:45→20:00)
[2018-08-04] MEDS: CEFEPIME HCL 1 GM in NS 50 ML IV SCH ×3 (05:10→21:34)
[2018-08-04] MEDS: morphINE 10 MG/0.5 ML UDSYR PO PRN ×4 (05:19→20:47)
[2018-08-04] MEDS: BENZONATATE 100 MG CAP PO PRN ×4 (05:24→20:00)
[2018-08-04] MEDS ORDERED: MIDODRINE HCL 10 MG TAB PO SCH (06:00)
[2018-08-04] MEDS ORDERED: NS 1,000 ML IV ONE (07:08)
[2018-08-04] MEDS: morphINE SR 30 MG TAB PO SCH ×2 (07:55→19:09)
[2018-08-04] MEDS ORDERED: NOREPINEPHRINE BITARTRATE 16 MG in NS 250 ML IV SCH (08:30)
--- NOTE | 2018-08-04 08:42 | POSTOPPROG ---
Post Op Note Date of Operation: 08/04/18 Surgeon: Ramirez Shetty Anesthesia: Local (Specify) (5cc 1% lidocaine) Pre-op Diagnosis: Sepsis, hypotension, requirement for vasoactive medications Post-op Diagnosis: Sepsis, hypotension, requirement for vasoactive medications Indication: Sepsis, hypotension, requirement for vasoactive medications Procedure: placement of right EJ central line (due to anticoagulation) Findings: Central line in good position Inf/Abcess present in the surg proc area at time of surgery?: No Total fluids administered: 500cc NS Complications: none Specimen(s): none
[2018-08-04] MEDS: DIAZEPAM 2 MG TAB PO PRN ×2 (08:47→14:47)
[2018-08-04] MEDS: ONDANSETRON DISINTEGRATING 4 MG TAB PO PRN ×2 (08:47→15:01)
[2018-08-04] MEDS: ACETAMINOPHEN 500 MG TAB PO SCH ×2 (08:49→20:44)
[2018-08-04] MEDS: predniSONE 20 MG TAB PO SCH (08:49)
[2018-08-04] MEDS: ASPIRIN 81 MG CHEWABLE TAB PO SCH (08:49)
[2018-08-04] MEDS: AZITHROMYCIN 250 MG TAB PO SCH (08:49)
[2018-08-04] MEDS: ENOXAPARIN 40 MG/0.4 ML SYR SC SCH (08:50)
[2018-08-04] MEDS: DOCUSATE SODIUM 100 MG CAP PO SCH ×2 (08:58→20:45)
--- NOTE | 2018-08-04 09:14 | HOSPPROG ---
Hospitalist Progress Note Assessment/Plan: 63 yo F w severe copd, anxiety, adenovirus, rll pneumonia pneumonia: adenovirus + received 24 hours cefepime (07/31-) and now febrile suspect bacterial superinfection, need to treat for nosocomial pathogens vanc/cefepime/azithro sepsis: hypotension, fever, source 1. now of levophed 2. central access 3. check cvp 4. wean pressors as tolerated hyponatremia: acute on chronic given fever, likely hypovolemic bolus, folow q6 08/04: has risen at appropriate rate appreciate renal follow up copd: continue home meds, pred at 30 may want to consolidate inhalers to combo meds pain: complains of pain, declines changing regimen fentanyl patch not ideal proph :lmwh code: full for now dispo: inpt, icu 45 min crit care Subjective: hypotensive requiring pressors, central line overnight. cxr w central line, worsening RLL pneumonia, no pneumothorax (interp by me). case d/ w dr chan Objective: Vital Signs Temp Pulse Resp BP Pulse Ox 36.2 C 93 16 136/71 H 99 08/04/18 04:09 08/04/18 09:02 08/04/18 09:02 08/04/18 09:02 08/04/18 09:02 Laboratory Results 08/01/18 05:04 08/04/18 04:30 08/03/18 08/04/18 08/05/18 05:59 05:59 05:59 Intake Total 800 3730 Output Total 300 740 700 Balance 500 2990 -700 PT 13.0 SEC (12.0-15.0) 07/31/18 06:34 INR 0.96 (0.83-1.16) 07/31/18 06:34 - Physical Exam Constitutional: no apparent distress, appears nourished Eyes: PERRL, anicteric sclera Ears, Nose, Mouth, Throat: moist mucous membranes, hearing normal Cardiovascular: regular rate and rhythym, no murmur, rub, or gallop Respiratory: no respiratory distress, other (crackles at R base, good air movement) Gastrointestinal: normoactive bowel sounds, soft, non-tender abdomen Genitourinary: no bladder fullness, No ahmadi in urethra Skin: warm, normal color Musculoskeletal: full muscle strength, no muscle tenderness Neurologic: AAOx3 ICD10 Worksheet Patient Problems: Problems Problem Status Onset COPD (chronic obstructive pulmonary disease) Acute Fever Acute Pneumonia Acute Chronic obstructive pulmonary disease with acute exacerbation Acute
[2018-08-04] MEDS: MOMETASONE 220MCG INHALER IH SCH ×2 (09:29→19:59)
[2018-08-04] MEDS: TIOTROPIUM INHALER 18 MCG/DOSE 5 DOSE/MDI IH SCH (09:29)
[2018-08-04] MEDS: SALMETEROL DISKUS MDI IH SCH ×2 (09:29→19:58)
--- NOTE | 2018-08-04 09:34 | GOP ---
[f rep st] OPERATIVE REPORT DATE OF OPERATION: SURGEON: Ramirez Shetty MD PREOPERATIVE DIAGNOSIS: A central line is required for vasoactive medications for sepsis and hypotension. POSTOPERATIVE DIAGNOSIS: A central line is required for vasoactive medications for sepsis and hypotension. PROCEDURE PERFORMED: Placement of right external jugular central line. FINDINGS: Right external jugular in good central location. INDICATIONS: Requiring a central line for vasoactive medications for sepsis and hypotension. DESCRIPTION OF PROCEDURE: The patient is verbally consented as this is an urgent procedure. She is carefully prepped and draped and placed in steep Trendelenburg position. She has good distention of her right external jugular vein and because of her use of Lovenox, I opted to use an external jugular approach to minimize contusion and bleeding. After a full barrier was obtained and the central line has been flushed through Hep-Lock adapters for the blue and white ports, the skin was anesthetized with less than 5 cc of 1% Xylocaine. On the 1st puncture, I was able to access the external jugular vein. This has been assisted by using abdominal pressure to over distend the veins. The guidewire is passed centrally. Needle and syringe unit is removed over the guidewire. The skin is incised sharply. Dilator is passed. Dilator was removed. The triple-lumen was carefully passed over the guidewire. The guidewire was removed. Good return draws obtained. Hep-Lock adaptor was placed on the brown hub and this is flushed. The line was sutured in place. Biopatch is positioned. Tegaderm was placed. A chest x-ray was obtained which shows good central placement. The patient tolerated the procedure well. /[id number]/MODL MTDD
[2018-08-04] MEDS ORDERED: POTASSIUM CL IV SCH (10:00)
[2018-08-04] MEDS ORDERED: 1/2 NS IV SCH (10:00)
--- NOTE | 2018-08-04 10:17 | SOAPPROG ---
SOAP Progress Note Assessment/Plan: Assessment: 1. Hyponatremia Pt melodie'd at 120, after relatively short period of tiime (less than 48 hours ). I believe her risk of ODS is low, but I will use some caution relating to rate of additional rise. At the same time, she has had some hemodynamic instability, and saline administration is indicated. I would prioritize her hemodynamics in such situation, and use NS boluses as needed. I would also avoid ddavp at the moment, as I suspect this could complicate her management. If needed though, we could use vasopressin. Given her K is low, I will start 1/2 NS with 40meq KCl. This will supply some IV volume along with about 20ml hour extra free water along with what she take orally and gets in her meds and other IV's. I will monitor q3h labs for now. We will also repeat a Mg level. 2. Pneumonia/Sepsis Treating with antibx, fluids, and pressors. She is stable at this moment. Plan: 08/04/18 10:01 Objective: Vital Signs Temp Pulse Resp BP Pulse Ox 36.2 C 90 18 136/71 H 100 08/04/18 04:09 08/04/18 09:30 08/04/18 09:30 08/04/18 09:02 08/04/18 09:30 Laboratory Results 08/04/18 09:05 08/04/18 09:05 08/03/18 08/04/18 08/05/18 05:59 05:59 05:59 Intake Total 800 3730 847 Output Total 300 740 700 Balance 500 2990 147 PT 13.0 SEC (12.0-15.0) 07/31/18 06:34 INR 0.96 (0.83-1.16) 07/31/18 06:34 Physical Exam - Physical Exam General Appearance: mild distress Neck: other (cvc) Respiratory: decreased breath sounds Cardiac/Chest: regular rate, rhythm Abdomen: non-tender Extremities: normal inspection Neuro/Psych: alert ICD10 Worksheet Patient Problems: Problems Problem Status Onset COPD (chronic obstructive pulmonary disease) Acute Fever Acute Pneumonia Acute Chronic obstructive pulmonary disease with acute exacerbation Acute
--- NOTE | 2018-08-04 12:18 | ASMTCMCOM ---
CM Note CM Note Notes: CM spoke with [facility], they report they have been working closely with pt and her daughter to attempt to get pt placed at another facility. Pt has been denied a number of places. [facility] is aware of importance of transfer and says they are actively working on facilitating transfer. CM Submit updates to [facility] via [facility]. Once pt medically ready will need to return to [facility] at discharge. CM to follow. [facility] Date Signed: 08/04/2018 12:17 PM Electronically Signed By:JIM Ramirez
--- NOTE | 2018-08-04 12:48 | CPEKG ---
Test Reason : OPEN Blood Pressure : / mmHG Vent. Rate : 101 BPM Atrial Rate : 090 BPM P-R Int : 158 ms QRS Dur : 094 ms QT Int : 374 ms P-R-T Axes : 085 039 076 degrees QTc Int : 485 ms Sinus tachycardia Multiple premature complexes, vent & supraven Confirmed by Diego Hitchcock ([id number]) on 08/04/2018 12:47:30 PM Referred By: Kingsley Horne Confirmed By:Diego Hitchcock
[2018-08-04] MEDS ORDERED: POTASSIUM Cl (KCl) 50 ML IV ONE (14:14)
[2018-08-04] MEDS: ACETAMINOPHEN 500 MG TAB PO PRN (14:29)
[2018-08-04] MEDS ORDERED: MAGNESIUM SULF 2 GM/WATER 50 ML IV ONE (14:30)
--- NOTE | 2018-08-04 15:11 | PDINTPN ---
Blow Molder Progress Note Assessment/Plan: 63 F with COPD admitted for exacerbation 07/31 with RLL PNA (adenovirus) and treated with abx, steroids, nebs. She was briefly on pressors and had a high O2 requirement requiring transfer to the ICU 08/03-08/04. * COPD with acute exacerbation- currently treated with albuterol nebs Q4 and prn , asmanex, serevent, spiriva, chronic (newly started) azithromycin, prednisone 20 mg daily. FEV1 is unknown, but she is reported to have late stage COPD. She is also getting cefepime. Keep O2 sats 90-94 and will plan slow prednisone taper. Overnight event s a bit unclear to me, but now mostly resolved- mucous plugging comes to mind. * Hypotnesion resolved and off pressors * Hyponatremia thought to be acute on chronic. Fluid restriction in place. * Anxiety Subjective: feels better today with decreased sob. required levophed overnight for hypotension. Objective: Vital Signs Temp Pulse Resp BP Pulse Ox 36.7 C 94 12 132/75 H 99 08/04/18 12:00 08/04/18 14:00 08/04/18 14:00 08/04/18 14:00 08/04/18 14:00 Laboratory Results 08/04/18 09:05 08/04/18 12:45 08/03/18 08/04/18 08/05/18 05:59 05:59 05:59 Intake Total 800 3730 847 Output Total 722 487 2222 Balance 500 2990 -503 PT 13.0 SEC (12.0-15.0) 07/31/18 06:34 INR 0.96 (0.83-1.16) 07/31/18 06:34 Physical Exam - Physical Exam General Appearance: alert, no apparent distress EENT: PERRL/EOMI Neck: supple Respiratory: lungs clear, normal breath sounds, No respiratory distress, No accessory muscle use, No wheezing Cardiac/Chest: regular rate, rhythm, No edema Abdomen: normal bowel sounds, non-tender, soft, No distended Skin: normal color, warm/dry, No cyanosis Lymphatic: no adenopathy Extremities: No pedal edema Neuro/Psych: alert, normal mood/affect, oriented x 3 ICD10 Worksheet Patient Problems: Problems Problem Status Onset COPD (chronic obstructive pulmonary disease) Acute Fever Acute Pneumonia Acute Chronic obstructive pulmonary disease with acute exacerbation Acute
[2018-08-04] MEDS: fentaNYL 50 MCG PATCH TD SCH (17:45)
[2018-08-04] MEDS: NORTRIPTYLINE HCL 25 MG CAP PO SCH (20:45)
[2018-08-04] MEDS ORDERED: NS 1,000 ML IV SCH (23:00)
[2018-08-05] MEDS ORDERED: VANCOMYCIN 1.25 GM in NS 250 ML IV SCH (00:30)
[2018-08-05] MEDS: morphINE 10 MG/0.5 ML UDSYR PO PRN ×6 (00:49→23:39)
[2018-08-05] MEDS: VANCOMYCIN HCL/NORMAL SALINE 250 ML IV SCH (01:43)
[2018-08-05] MEDS ORDERED: POTASSIUM Cl (KCl) 100 ML IV SCH (02:53)
[2018-08-05] MEDS ORDERED: POTASSIUM CL 10 MEQ TAB PO ONE (02:56)
[2018-08-05] MEDS: ALBUTEROL 3 ML DEYVIAL IH SCH ×6 (03:17→20:45)
[2018-08-05] MEDS: DIAZEPAM 2 MG TAB PO PRN ×3 (04:23→20:38)
[2018-08-05] MEDS: BENZONATATE 100 MG CAP PO PRN ×3 (04:23→16:29)
[2018-08-05] MEDS: CEFEPIME HCL 1 GM in NS 50 ML IV SCH ×3 (05:59→22:50)
[2018-08-05 06:11] LABS: PLATELET COUNT 146 10^3/uL (150-400)
[2018-08-05] MEDS: ACETAMINOPHEN 500 MG TAB PO SCH ×2 (08:08→20:37)
[2018-08-05] MEDS: predniSONE 20 MG TAB PO SCH (08:09)
[2018-08-05] MEDS: AZITHROMYCIN 250 MG TAB PO SCH (08:09)
[2018-08-05] MEDS: DOCUSATE SODIUM 100 MG CAP PO SCH ×3 (08:09→20:38)
[2018-08-05] MEDS: ASPIRIN 81 MG CHEWABLE TAB PO SCH (08:09)
[2018-08-05] MEDS: ENOXAPARIN 40 MG/0.4 ML SYR SC SCH (08:09)
[2018-08-05] MEDS: morphINE SR 30 MG TAB PO SCH ×2 (08:09→18:29)
[2018-08-05] MEDS: ONDANSETRON DISINTEGRATING 4 MG TAB PO PRN (08:10)
[2018-08-05] MEDS: TIOTROPIUM INHALER 18 MCG/DOSE 5 DOSE/MDI IH SCH (08:19)
[2018-08-05] MEDS: SALMETEROL DISKUS MDI IH SCH ×2 (08:20→20:44)
[2018-08-05] MEDS: MOMETASONE 220MCG INHALER IH SCH ×2 (08:20→20:45)
--- NOTE | 2018-08-05 09:25 | WOCRNPDOC ---
WOCRN Advanced Assessment Note - Skin Integrity Problem, Advanced Assess Right Buttock Dressing Type: Allevyn Life Exudate Amount: None Wound Bed Constitution: Adhered Slough (100%) Wound Edges: Epithelizing, Attached Site Measurement - Head-to-Toe Length X Width X Depth (cm): 0.5x0.5x0.2 Skin Integrity Problem Comment: Small wound of unknown etiology. Not pressure related. Wound care will sign off. Reported to Lu Leigh RN.
[2018-08-05] MEDS: ACETAMINOPHEN 500 MG TAB PO PRN (12:25)
--- NOTE | 2018-08-05 13:33 | PDINTPN ---
Investigator Operator Progress Note Assessment/Plan: 63 F with COPD admitted for exacerbation 07/31 with RLL PNA (adenovirus) and treated with abx, steroids, nebs. She was briefly on pressors and had a high O2 requirement requiring transfer to the ICU 08/03-08/04. * COPD with acute exacerbation- currently treated with albuterol nebs Q4 and prn , asmanex, serevent, spiriva, chronic (newly started) azithromycin, prednisone 20 mg daily. FEV1 is unknown, but she is reported to have late stage COPD. She is also getting cefepime. Keep O2 sats 90-94 and will plan slow prednisone taper. Overnight event s of 08/03-08/04 a bit unclear to me, but now mostly resolved- mucous plugging comes to mind. This is her third admission in 2019 for COPD exacerbation and her CXR from 08/03 shows increasing RLL infiltrate. Reasonable to cover with Cefepime for total 7 days and keep on Azithromycin indefinitely (data supports reduction in exacerbation rate). Her current ( atypical) regimen includes albuterol nebs q4 hrs and prn; asmanex, serevent, and spiriva. She was highly resistant to similar, simpler alternative regimens. She also remains on 20 mg daily prednisone, which I do not favor for nursing home management. Lucindaon also OK * hypoxia 07/19 #1- this has been an issue in the past as she has demonstrated CO2 retention (which could have also been associated with narcotic usage). As an inpatient, it is inappropriate for her flow rate to be higher than necessary (eg sats >90). Ongoing education may be required to help her understand the risk of excess oxygen as well as understanding that dyspnea is not synonymous with hypoxemia. * Chronic narcotic dependence- * Hypotension resolved and off pressors * Hyponatremia thought to be acute on chronic. Fluid restriction in place. * Anxiety- could be exacerbated by steroids 08/05/18 13:23 Subjective: Continues to complain about SOB and chronic non-productive cough Objective: Vital Signs Temp Pulse Resp BP Pulse Ox 36.7 C 105 H 10 L 99/53 L 94 08/05/18 12:00 08/05/18 12:00 08/05/18 12:00 08/05/18 12:00 08/05/18 12:00 Laboratory Results 08/05/18 05:55 08/05/18 05:55 08/04/18 08/05/18 08/06/18 05:59 05:59 05:59 Intake Total 3730 3858 Output Total 740 2350 Balance 2990 1508 PT 13.0 SEC (12.0-15.0) 07/31/18 06:34 INR 0.96 (0.83-1.16) 07/31/18 06:34 Physical Exam - Physical Exam General Appearance: alert, mild distress, other (tremulous) EENT: PERRL/EOMI Neck: supple Respiratory: lungs clear, decreased breath sounds (very diminished), No respiratory distress, No accessory muscle use, No wheezing, No prolonged expiration Cardiac/Chest: regular rate, rhythm, edema, tachycardia Abdomen: non-tender, soft, No distended Skin: normal color, warm/dry, No cyanosis Lymphatic: no adenopathy Extremities: No pedal edema Neuro/Psych: alert, normal mood/affect, oriented x 3, other (anxious) ICD10 Worksheet Patient Problems: Problems Problem Status Onset COPD (chronic obstructive pulmonary disease) Acute Fever Acute Pneumonia Acute Chronic obstructive pulmonary disease with acute exacerbation Acute
--- NOTE | 2018-08-05 14:32 | SOAPPROG ---
SOAP Progress Note Assessment/Plan: Assessment: hyponatremia SIADH pneumonia COPD very low anion gap, will check for paraproteinemia Plan: continue fluid restriction continue current therapies follow Na closely 08/05/18 14:29 08/05/18 14:32 Subjective: having a hard time remembering she has hair, so has the fan on so she can feel her hair blowing on her head no cp some SOB, no nausea or vomiting spirits good says she is eating OK mostly staying in bed Objective: Vital Signs Temp Pulse Resp BP Pulse Ox 36.7 C 99 16 99/53 L 99 08/05/18 12:00 08/05/18 13:45 08/05/18 13:45 08/05/18 12:00 08/05/18 13:45 Laboratory Results 08/05/18 05:55 08/05/18 05:55 08/04/18 08/05/18 08/06/18 05:59 05:59 05:59 Intake Total 3730 3858 Output Total 740 2350 Balance 2990 1508 PT 13.0 SEC (12.0-15.0) 07/31/18 06:34 INR 0.96 (0.83-1.16) 07/31/18 06:34 Physical Exam - Physical Exam General Appearance: alert, thin Neck: normal inspection Respiratory: rales, No rhonchi, No wheezing Cardiac/Chest: regular rate, rhythm, No edema, No friction rub Abdomen: normal bowel sounds, non-tender, soft Extremities: No swelling Neuro/Psych: alert, other (cooperative) ICD10 Worksheet Patient Problems: Problems Problem Status Onset COPD (chronic obstructive pulmonary disease) Acute Fever Acute Pneumonia Acute Chronic obstructive pulmonary disease with acute exacerbation Acute
[2018-08-05] MEDS ORDERED: PROTOCOL K PHOSPHATE 1 DOSE IV PRN (14:43)
--- NOTE | 2018-08-05 15:29 | ASMTCMCOM ---
CM Note CM Note Notes: Pt care discussed in rounds and with MD. Pt and her daughter (Ruth Ann [phone]) report that they are frustrated that they have not gotten transfered out of [facility]. CM spoke with Nelly (atlassian administrator at [facility] [phone]) who reports pt has been denied from the facilities pt's daughter was agreeable to. CM expressed urgency for facilitating transfer to a different facility and Nelly said she would submit more referrals. CM provided education to pt's daughter about possibility for being discharged to LTAC, CM submit referral to [facility] via [employer]. CM provided education to Ruth Ann about pt's health and why pt got off of Hospice. Ruth Ann reports she is interested in palliative Care meeting to discuss goals of care. CM requested PC order from MD. Plan: [facility] pending acceptance/ re-visit Palliative Care/Hospice Plans of care. Date Signed: 08/05/2018 03:29 PM Electronically Signed By:JIM Ramirez
--- NOTE | 2018-08-05 18:30 | HOSPPROG ---
Hospitalist Progress Note Assessment/Plan: * COPD exacerbation -prednisone, nebs -continuous azithromycin * Acute on chronic respiratory failure * Adenovirus bronchitis * Secondary bacterial PNA -improved on Cefepime * Sepsis -weaned off pressors * Hyponatremia -improved - per renal * Chronic back pain with continuous narcotic dependency -home meds * COR status -was previous on hospice -consider DNR - palliative care meeting in am * Anxiety Subjective: Still SOB Objective: Vital Signs Temp Pulse Resp BP Pulse Ox 36.7 C 110 H 12 104/81 H 100 08/05/18 12:00 08/05/18 17:49 08/05/18 17:49 08/05/18 16:00 08/05/18 17:49 Laboratory Results 08/05/18 05:55 08/05/18 05:55 08/04/18 08/05/18 08/06/18 05:59 05:59 05:59 Intake Total 3730 3858 Output Total 740 2350 Balance 2990 1508 PT 13.0 SEC (12.0-15.0) 07/31/18 06:34 INR 0.96 (0.83-1.16) 07/31/18 06:34 d/w DR. Crawley regarding COPD treatment CTA chest - no PE - Physical Exam Constitutional: no apparent distress, appears nourished, not in pain Cardiovascular: regular rate and rhythym, no murmur, rub, or gallop Respiratory: reduced air movement, expiratory wheeze, respiratory distress, rhonchi Gastrointestinal: normoactive bowel sounds, soft, non-tender abdomen, no palpable masses Skin: no rashes or abrasions, no fluctuance, no induration Neurologic: AAOx3, sensation intact bilaterally Psychiatric: interacting appropriately, not anxious, not encephalopathic, thought process linear ICD10 Worksheet Patient Problems: Problems Problem Status Onset Chronic obstructive pulmonary disease with acute exacerbation Acute COPD (chronic obstructive pulmonary disease) Acute Fever Acute Pneumonia Acute
[2018-08-05] MEDS: POLYETHYLENE GLYCOL 3350 17 GM PKT PO SCH (18:34)
[2018-08-05] MEDS: NORTRIPTYLINE HCL 25 MG CAP PO SCH (20:38)
[2018-08-06] MEDS: ALBUTEROL 3 ML DEYVIAL IH SCH ×6 (01:54→20:19)
[2018-08-06] MEDS: BENZONATATE 100 MG CAP PO PRN ×3 (02:14→16:06)
[2018-08-06] MEDS: ACETAMINOPHEN 500 MG TAB PO PRN ×2 (02:41→17:42)
[2018-08-06] MEDS: DIAZEPAM 2 MG TAB PO PRN ×3 (04:28→16:06)
[2018-08-06] MEDS: morphINE 10 MG/0.5 ML UDSYR PO PRN ×5 (04:54→22:05)
[2018-08-06] MEDS: CEFEPIME HCL 1 GM in NS 50 ML IV SCH ×3 (04:59→23:01)
[2018-08-06 05:44] LABS: PLATELET COUNT 147 10^3/uL (150-400)
[2018-08-06] MEDS: morphINE SR 30 MG TAB PO SCH ×2 (07:32→18:40)
[2018-08-06] MEDS: SALMETEROL DISKUS MDI IH SCH ×2 (08:02→20:26)
[2018-08-06] MEDS: TIOTROPIUM INHALER 18 MCG/DOSE 5 DOSE/MDI IH SCH (08:03)
[2018-08-06] MEDS: MOMETASONE 220MCG INHALER IH SCH ×2 (08:03→20:26)
--- NOTE | 2018-08-06 08:13 | SOAPPROG ---
SOAP Progress Note Assessment/Plan: Assessment: hyponatremia, Na stuck in 129-130 range SIADH, repeat urine chems most consistent with SIADH, cortisol and TSH OK pneumonia, feels about the same COPD, seems to be in less distress, more calm today very low anion gap, will check for paraproteinemia, drawn, not yet back Plan: continue fluid restriction, stopped NS Start NaCl tabs TID today continue current therapies follow Na closely 08/05/18 14:29 08/05/18 14:32 08/06/18 08:10 Subjective: more comfortable today out of the ICU tolerating her breathing treatment appetite not great today slept OK no pain Objective: Vital Signs Temp Pulse Resp BP Pulse Ox 36.5 C 97 18 112/71 98 08/06/18 07:54 08/06/18 07:54 08/06/18 07:54 08/06/18 07:54 08/06/18 07:54 Laboratory Results 08/06/18 05:00 08/06/18 05:00 08/05/18 08/06/18 08/07/18 05:59 05:59 05:59 Intake Total 3858 800 Output Total 2350 600 600 Balance 1508 200 -600 PT 13.0 SEC (12.0-15.0) 07/31/18 06:34 INR 0.96 (0.83-1.16) 07/31/18 06:34 Physical Exam - Physical Exam General Appearance: alert, thin Neck: normal inspection Respiratory: other (diminished throughout, no rh or wh (getting neb Rx during exam)) Cardiac/Chest: regular rate, rhythm, No edema, No friction rub Abdomen: normal bowel sounds, non-tender, soft Skin: warm/dry Neuro/Psych: alert, normal mood/affect, oriented x 3 ICD10 Worksheet Patient Problems: Problems Problem Status Onset COPD (chronic obstructive pulmonary disease) Acute Fever Acute Pneumonia Acute Chronic obstructive pulmonary disease with acute exacerbation Acute
[2018-08-06] MEDS ORDERED: POTASSIUM CL 10 MEQ TAB PO ONE (08:30)
[2018-08-06] MEDS: predniSONE 20 MG TAB PO SCH (08:39)
[2018-08-06] MEDS: ASPIRIN 81 MG CHEWABLE TAB PO SCH (08:39)
[2018-08-06] MEDS: ACETAMINOPHEN 500 MG TAB PO SCH ×2 (08:39→22:01)
[2018-08-06] MEDS: AZITHROMYCIN 250 MG TAB PO SCH (08:39)
[2018-08-06] MEDS: SODIUM CHLORIDE 1,000 MG TAB PO SCH ×3 (08:39→17:42)
[2018-08-06] MEDS: DOCUSATE SODIUM 100 MG CAP PO SCH ×2 (08:40→22:03)
[2018-08-06] MEDS: ENOXAPARIN 40 MG/0.4 ML SYR SC SCH (08:40)
[2018-08-06] MEDS: POLYETHYLENE GLYCOL 3350 17 GM PKT PO SCH (08:41)
[2018-08-06] MEDS ORDERED: K PHOS 10 MMOL in D5W 250 ML IV ONE (12:00)
--- NOTE | 2018-08-06 15:13 | ASMTCMCOM ---
CM Note CM Note Notes: Spoke w/Dotty at [facility], pt has been accepted. Bed may be available tomorrow, notified MD who agrees with plan. CM discussed with pt and she would like CM to call daughter Ruth Ann. CM called and left a message. DC Plan: [facility] Date Signed: 08/06/2018 03:13 PM Electronically Signed By:Simran Heath RN
--- NOTE | 2018-08-06 21:00 | HOSPPROG ---
Hospitalist Progress Note Assessment/Plan: * COPD exacerbation -prednisone, nebs -continuous azithromycin * Acute on chronic respiratory failure * Adenovirus bronchitis * Secondary bacterial PNA -improved on Cefepime * Sepsis -weaned off pressors * Hyponatremia -improved - per renal * Chronic back pain with continuous narcotic dependency -home meds * COR status -was previous on hospice -consider DNR - palliative care meeting in am * Anxiety Subjective: no new complaints. Objective: Vital Signs Temp Pulse Resp BP Pulse Ox 36.6 C 97 18 123/73 H 96 08/06/18 20:00 08/06/18 20:00 08/06/18 20:00 08/06/18 20:00 08/06/18 20:00 Laboratory Results 08/06/18 05:00 08/06/18 18:43 08/05/18 08/06/18 08/07/18 05:59 05:59 05:59 Intake Total 3858 800 300 Output Total 2350 600 1850 Balance 1508 200 -1550 PT 13.0 SEC (12.0-15.0) 07/31/18 06:34 INR 0.96 (0.83-1.16) 07/31/18 06:34 - Physical Exam Constitutional: no apparent distress, appears nourished, not in pain Cardiovascular: regular rate and rhythym, no murmur, rub, or gallop Respiratory: reduced air movement, respiratory distress, No rhonchi Gastrointestinal: normoactive bowel sounds, soft, non-tender abdomen, no palpable masses Skin: no rashes or abrasions, no fluctuance, no induration Neurologic: AAOx3, sensation intact bilaterally Psychiatric: interacting appropriately, not anxious, not encephalopathic, thought process linear ICD10 Worksheet Patient Problems: Problems Problem Status Onset Chronic obstructive pulmonary disease with acute exacerbation Acute COPD (chronic obstructive pulmonary disease) Acute Fever Acute Pneumonia Acute
[2018-08-06] MEDS: NORTRIPTYLINE HCL 25 MG CAP PO SCH (22:01)
[2018-08-07] MEDS: DIAZEPAM 2 MG TAB PO PRN ×3 (00:45→16:26)
[2018-08-07] MEDS: ALBUTEROL 3 ML DEYVIAL IH SCH ×4 (02:01→14:43)
[2018-08-07] MEDS: morphINE 10 MG/0.5 ML UDSYR PO PRN ×4 (04:09→16:31)
[2018-08-07] MEDS: ACETAMINOPHEN 500 MG TAB PO PRN ×2 (04:43→16:26)
[2018-08-07] MEDS: BENZONATATE 100 MG CAP PO PRN ×2 (04:43→08:36)
[2018-08-07] MEDS: CEFEPIME HCL 1 GM in NS 50 ML IV SCH ×2 (05:18→13:18)
[2018-08-07 06:05] LABS: PLATELET COUNT 157 10^3/uL (150-400)
[2018-08-07] MEDS: morphINE SR 30 MG TAB PO SCH (06:28)
[2018-08-07] MEDS ORDERED: POTASSIUM CL 10 MEQ TAB PO ONE (07:24)
[2018-08-07] MEDS: SODIUM CHLORIDE 1,000 MG TAB PO SCH ×2 (08:12→12:31)
[2018-08-07] MEDS: ASPIRIN 81 MG CHEWABLE TAB PO SCH (08:12)
[2018-08-07] MEDS: predniSONE 20 MG TAB PO SCH (08:12)
[2018-08-07] MEDS: AZITHROMYCIN 250 MG TAB PO SCH (08:13)
[2018-08-07] MEDS: ACETAMINOPHEN 500 MG TAB PO SCH (08:14)
[2018-08-07] MEDS: POLYETHYLENE GLYCOL 3350 17 GM PKT PO SCH (08:16)
[2018-08-07] MEDS: ENOXAPARIN 40 MG/0.4 ML SYR SC SCH (08:16)
[2018-08-07] MEDS: MOMETASONE 220MCG INHALER IH SCH (09:51)
[2018-08-07] MEDS: TIOTROPIUM INHALER 18 MCG/DOSE 5 DOSE/MDI IH SCH (09:51)
[2018-08-07] MEDS: SALMETEROL DISKUS MDI IH SCH (09:52)
--- NOTE | 2018-08-07 10:10 | SOAPPROG ---
SOAP Progress Note Assessment/Plan: Assessment/Plan: Hyponatremia: Na up to 132, urine studies consistent with SIADH, likely in setting of chronic and severe lung disease. TSH and AM cortisol fine. - Will continue salt tabs and 1200ml fluid restriction. - Continue to monitor daily. Low anion gap: free light chains and SPEP ok, UPEP still pending. Subjective: No acute events overnight. Pt getting breathing treatments this am, describes her breathing as "the same old shit." She has no other complaints today. Objective: Vital Signs Temp Pulse Resp BP Pulse Ox 36.6 C 92 16 125/80 H 99 08/07/18 07:51 08/07/18 07:51 08/07/18 07:51 08/07/18 07:51 08/07/18 07:51 Laboratory Results 08/07/18 05:14 08/07/18 05:14 08/06/18 08/07/18 08/08/18 05:59 05:59 05:59 Intake Total 800 460 Output Total 600 3950 Balance 200 -3490 PT 13.0 SEC (12.0-15.0) 07/31/18 06:34 INR 0.96 (0.83-1.16) 07/31/18 06:34 General: alert and oriented, no acute distress Eyes: EOMI, PERRL OP: Clear CV: RRR Resp: nonlabored respirations on oxygen, +scattered wheezes Abd: Soft, NT/ND Ext: no edema BLE Neuro: CN II-XII grossly intact, no asterixis Psych: cooperative ICD10 Worksheet Patient Problems: Problems Problem Status Onset COPD (chronic obstructive pulmonary disease) Acute Fever Acute Pneumonia Acute Chronic obstructive pulmonary disease with acute exacerbation Acute
[2018-08-07 11:17] VITALS: BP 110/69
[2018-08-07] MEDS: DOCUSATE SODIUM 100 MG CAP PO SCH (11:29)
[2018-08-07] MEDS: fentaNYL 50 MCG PATCH TD SCH (14:38)
[2018-08-07] MEDS ORDERED: BIOTENE DRY MOUTH ORAL RINSE 237 ML BTL MM PRN (14:42)
--- NOTE | 2018-08-07 14:42 | ASMTLACE ---
KEISHA Length of stay for Answers: 7-13 days current admission Acuity / Level of Answers: Yes Care: Did the patient have an inpatient admission? Comorbidities - select Answers: Chronic pulmonary disease all that apply Opioid dependence / Chronic pain Other Notes: Cognitive deficit # of Emergency department Answers: 3-4 visits in the last 6 months Social determinants Answers: Mental health diagnosis (anxiety, depression, pers onality disorders, etc.) Score: 21 Date Signed: 08/07/2018 02:41 PM Electronically Signed By:Simran Heath RN
--- NOTE | 2018-08-07 14:44 | PDIAF ---
- Diagnosis Diagnosis: COPD, resp failure, sepsis Code Status: Full Code - Medication Management Additional Medication Instructions: Currently on Day # 5 Cefepime Discharge Medications: electronically signed and located in the Home Medication List. - Orders Services needed: Physical Therapy, Occupational Therapy, Speech Language Pathologist Isolation Type: Contact Isolation, Droplet Isolation Diet Recommendation: no restrictions on diet Additional Instructions: Fluid restrict 1200cc daily - Follow Up Care Current Providers and Referrals: CRUZ KOHLER [Primary Care Provider] - As per Instructions
--- NOTE | 2018-08-07 15:23 | ASMTDCNOTE ---
Case Management Discharge Discharge Order Complete? Answers: Yes Patient to Obtain Answers: Other Notes: [facility] Medications Transportation Arranged Answers: [facility] will Pick (Date 08/07/2018 04:30 PM & Time) Case Management Transport Answers: Yes Form Complete Faxed Final Orders Answers: Yes Agency/Facility Transfer Answers: Yes Report Printed & Faxed to Receiving Agency Family Notified Answers: Yes Discharge Comments Notes: D/w MD, final orders faxed. Shikha at [facility] notified, RN to call report and pager number given to Dr Atkins to call Dr Hinton for a brief peer to peer. CM called and left message for dtr Ruth Ann. Date Signed: 08/07/2018 03:22 PM Electronically Signed By:Simran Heath RN
--- NOTE | 2018-08-07 19:21 | GDS ---
[f rep st] DISCHARGE SUMMARY DISCHARGE DIAGNOSES: 1. Acute on chronic respiratory failure. 2. Chronic obstructive pulmonary disease exacerbation. 3. Adenovirus bronchitis. 4. Secondary bacterial pneumonia. 5. Septic shock. 6. 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 7. Chronic back pain with continuous narcotic dependency. 8. Anxiety. 9. Severe malnutrition. HISTORY: The patient is a 63-year-old female with advanced COPD. She wears 2-3 L at baseline, 5 L w ith activity. She has had difficulties with COPD exacerbation continuously for the past month and sh e is having difficulty getting back to her baseline. She has had multiple hospitalizations where she is bouncing back to the hospital and inability to breathe with extreme shortness of breath. She was just discharged from the hospital 2 days prior to readmission. Her respiratory PCR was positive new ly for adenovirus, when it was negative on her last stay. CT angiogram of the chest was negative for PE. It did show evidence of a possible infiltrate. She was initially put on cefepime, doxycycline, but when adenovirus came back positive, we discontinued antibiotics. She subsequently became acutel y septic yet again after the discontinuation of antibiotics with high fevers up to 41.2, clinical hyp otension with a transfer to ICU requiring pressors. She was successfully weaned off pressors. It is clear there is a bacterial component to her pneumonia. She should complete a full course of cefepim e. Pulmonary Medicine also recommended chronic continuous azithromycin to decrease her COPD exacerba tions. She was treated with steroids and is now on oral prednisone. She needs a high degree of resp iratory support with albuterol nebulizers being administered every 4 hours, sometimes every 2 hours. Given her high complexity of care and need for a prolonged length of stay in the acute setting, we c onsulted [facility] and she has been accepted there in transfer. DISCHARGE MEDICATIONS: Please see computerized record for full detailed list. New medications: 1. Azithromycin 250 mg p.o. daily. 2. Prednisone 20 mg p.o. daily. 3. Salt tab 1000 mg p.o. three times daily. 4. Nortriptyline 50 mg p.o. at bedtime. 5. Aspirin 81 mg p.o. daily. 6. Valium 2 mg p.o. three times daily as needed. 7. Cefepime 1 g IV q.8, recommend at least 2 more days. 8. Biotene saliva substitute. Her other medications continued as they were prior to admission. Please refer to chart. ADDITIONAL DISCHARGE INSTRUCTIONS: 1. Fluid restrict to 1200 cc per day. 2. Transfer to [facility] for prolonged acute hospitalization, which is nee ded note. The patient has evidence of severe malnutrition probably due to pulmonary cachexia. She h as had weight loss of greater than 30% over the past year with fat and muscle loss and needs intensiv e nutritional therapy in order to improve. /[id number]/MODL
--- NOTE | 2018-08-08 09:25 | ASDISCHSUM ---
Discharge Information Plan Status:LTAC Medically Cleared to Leave: Discharge Date:08/07/2018 04:38 PM CM D/C Disposition:Other Rehab, Not [place] ADT D/C Disposition:[facility] Projected Discharge Date:08/04/2018 11:00 AM Transportation at D/C:ALS/BLS Discharge Delay Reason: Follow-Up Date:08/04/2018 11:00 AM Discharge Slot: Final Diagnosis: Placement Information Referral Type:*Long-Term/SNF Referral ID:[id number] Provider Name: Address 1: Phone Number: Address 2: Fax Number: City: Selection Factors: State: Referral Type:[facility] Referral ID:[id number] Provider Name:[facility] Address 1:[address] Address 2: City:[place] Selection Factors: State:[place] Patient Contact Information Contact Name:BRYANNA Relationship:Daughter Address:[address] Work Phone: City:[place] Alternate Phone: State/Zip Code:[place] [address] Email: Financial Information Financial Class:Medicare Primary Plan Desc:MEDICARE INPATIENT Primary Plan Number:[id number] Secondary Plan Desc:[place] Secondary Plan Number:[id number] Assessment Information LACE LACE Length of stay for Answers: 7-13 days current admission Acuity / Level of Answers: Yes Care: Did the patient have an inpatient admission? Comorbidities - select Answers: Chronic pulmonary disease all that apply Opioid dependence / Chronic pain Other Notes: Cognitive deficit # of Emergency department Answers: 3-4 visits in the last 6 months Social determinants Answers: Mental health diagnosis (anxiety, depression, pers onality disorders, etc.) Score: 21 Date Signed: 08/07/2018 02:41 PM Electronically Signed By:Simran Heath RN [facility] Initial CM Assessment Living Arrangements What is your living Answers: With Other (Not Family) arrangement? Who do you live with? Type Of Residence What kind of residence do Answers: Jail Facility you live in? Type of Residence Facility Name Notes: Patient lives at [facility]. She is not happy there but the social and political studies professor and admissions people have been assisting her in looking for a new facility. Malcom from [facility] states they have not gotten an accepting facility yet. Discharge Plan Comments Coordination Status Comments Notes: Patient is a 63yo single female who was just discharged from the hospital on 07-29-2018 and returns with right lower lobe pneumonia. Patient has a hx of COPD with chronic hypoxemic respiratory failure, chronic pain with continuous narcotic dependence. OT/PT have been ordered. Patient resides at [facility] though she is not happy there. The social and political studies professor has been trying to find her a new facility but they have not gotten any facilities willing to accept the patient to date. D/C plan will be back to [facility] even if she needs rehab, which they can provide. CM will follow. Date Signed: 08/01/2018 04:42 PM Electronically Signed By:Ann Ibrahim LCSW [facility] CM Progress Note CM Note CM Note Notes: CM spoke with [facility], they report they have been working closely with pt and her daughter to attempt to get pt placed at another facility. Pt has been denied a number of places. [facility] is aware of importance of transfer and says they are actively working on facilitating transfer. CM Submit updates to [facility] via [employer]. Once pt medically ready will need to return to [facility] at discharge. CM to follow. Plan: [facility] Date Signed: 08/04/2018 12:17 PM Electronically Signed By:JIM Ramirez [facility] ELISSA Progress Note CM Note ELISSA Note Notes: Pt care discussed in rounds and with MD. Pt and her daughter (Ruth Ann [phone]) report that they are frustrated that they have not gotten transfered out of [facility]. ELISSA spoke with Nelly (project administrator at [facility] [phone]) who reports pt has been denied from the facilities pt's daughter was agreeable to. ELISSA expressed urgency for facilitating transfer to a different facility and Nelly said she would submit more referrals. ELISSA provided education to pt's daughter about possibility for being discharged to LTAC, CM submit referral to [facility] via [employer]. CM provided education to Ruth Ann about pt's health and why pt got off of Hospice. Ruth Ann reports she is interested in palliative Care meeting to discuss goals of care. ELISSA requested PC order from MD. Plan: [facility] pending acceptance/ re-visit Palliative Care/Hospice Plans of care. Date Signed: 08/05/2018 03:29 PM Electronically Signed By:JIM Ramirez [facility] ELISSA Progress Note ELISSA Note ELISSA Note Notes: Spoke w/Dotty at [facility], pt has been accepted. Bed may be available tomorrow, notified MD who agrees with plan. ELISSA discussed with pt and she would like LEISSA to call daughter Ruth Ann. ELISSA called and left a message. DC Plan: [facility] Date Signed: 08/06/2018 03:13 PM Electronically Signed By:Simran Heath RN Case Management Discharge Plan Note Case Management Discharge Discharge Order Complete? Answers: Yes Patient to Obtain Answers: Other Notes: [facility] Medications Transportation Arranged Answers: [facility] will Pick (Date 08/07/2018 04:30 PM & Time) Case Management Transport Answers: Yes Form Complete Faxed Final Orders Answers: Yes Agency/Facility Transfer Answers: Yes Report Printed & Faxed to Receiving Agency Family Notified Answers: Yes Discharge Comments Notes: D/w , final orders faxed. Shikha at [facility] notified, RN to call report and pager number given to Dr Atkins to call Dr Hinton for a brief peer to peer. ELISSA called and left message for dtr Ruth Ann. Date Signed: 08/07/2018 03:22 PM Electronically Signed By:Simran Heath RN Intervention Information
[2018-08-26] MEDS ORDERED: ERGOCALCIFEROL 50,000 I.UNIT CAP PO SCH (09:00)
== END 2018-08-07 16:38 | DRG 871 ==
LOC: EDUNIT# → F2N 08:29 → OBSVTOIN 12:42 → F1N 08-02 10:41 → F2N 08-03 07:45 → F3E 08-05 22:24
PROVIDERS: ADMIT Internal Medicine; ATTEND Internal Medicine
PROC: 02HV33Z Insertion of Infusion Device into Superior Vena Cava, Percutaneous Approach (ICD-10-PCS; principal; 2018-08-04)
DX: A41.9 Sepsis, unspecified organism (principal); J96.20 Acute and chronic respiratory failure, unspecified whether with hypoxia or hypercapnia; J15.8 Pneumonia due to other specified bacteria; R65.21 Severe sepsis with septic shock; E43 Unspecified severe protein-calorie malnutrition; J44.1 Chronic obstructive pulmonary disease with (acute) exacerbation; E22.2 Syndrome of inappropriate secretion of antidiuretic hormone; F11.20 Opioid dependence, uncomplicated; J20.8 Acute bronchitis due to other specified organisms; G89.29 Other chronic pain; F41.9 Anxiety disorder, unspecified; Z88.0 Allergy status to penicillin; Z87.891 Personal history of nicotine dependence
CPT/HCPCS: 84484-ER; 86334-90; 96365; 97116-GP; 97162-GP; 97165-GO; 97530-GO; 97530-GP; 97535-GO; J0692; J1650; J1956; J3370; J3475; J3480; J7512; J7613; Q9967